=== PATIENT | male | born 1960 | race Caucasian/White ===

== ENCOUNTER 2022-02-05 18:43 | Emergency (ER) | payer MEDICAID, SELFPAY ==
[2022-02-05 18:51] VITALS: BP 99/78; PULSE 99; RESP 16; TEMP 37.1; O2SAT 98; BMI 26.6
[2022-02-05 19:09] LABS: MANUAL DIFF FLAG NO
[2022-02-05 19:17] LABS: Basophils Absolute Auto 0.1 X10*3/uL (0.0-0.2); Basophils Percent Auto 0.8 % (0-2); Eosinophils Absolute Auto 0.2 X10*3/uL (0.0-0.4); Eosinophils Percent Auto 1.7 % (0-4); Hematocrit 41.8 % (42.0-52.0); Hemoglobin 14.7 g/dl (14.0-18.0); Imm Gran Abs Auto 0.03 X10*3/uL (0.00-0.03); Imm Gran Pct Auto 0.3 % (0.0-0.4); Lymphocytes Absolute Auto 2.3 X10*3/uL (1.2-4.9); Lymphocytes Percent Auto 23.9 % (20-40); Mean Corpuscular HGB Conc 35.2 g/dl (31.0-36.0); Mean Corpuscular Hemoglobin 29.3 pg (27.0-33.0); Mean Corpuscular Volume 83.4 fL (80.0-98.0); Mean Platelet Volume 11.1 fL (9.4-12.4); Monocytes Absolute Auto 0.6 X10*3/uL (0.1-1.2); Neutrophils Absolute Auto 6.5 x10*3/uL (2.0-8.3); Neutrophils Percent Auto 67.3 % (45-73); Platelet Count 188 X10*3/uL (160-400); Red Blood Count 5.01 X10*6/uL (4.60-5.80); Red Cell Distribution Width 11.9 % (11.0-16.0); White Blood Count 9.6 X10*3/uL (4.8-10.8)
[2022-02-05 20:05] LABS: Anion Gap 20 (12-20); Blood Urea Nitrogen 17 mg/dL (9-16); Calcium 9.6 mg/dL (8.4-10.2); Carbon Dioxide 20 mmol/L (22-29); Chloride 94 mmol/L (96-108); Creatinine Clr Calc Pharmacy 41.3; Estimated Glomerular Filt Rate 36; Glucose Random 637 mg/dL (60-115); Potassium 4.9 mmol/L (3.3-5.1); Sodium 129 mmol/L (135-145)
[2022-02-05 20:52] LABS: Glucose, Whole Blood 525 mg/dL (60-115)
[2022-02-05 21:09] VITALS: BP 109/64; PULSE 83; RESP 14; O2SAT 98
--- NOTE | 2022-02-05 21:10 | ED_ITS ---
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 Patient was no history of diabetes been having polyuria, polydipsia, blurry vision, been feeling lightheadedness. Patient was seen at [facility] and been told that his blood sugars high they prescribed him oral anti-hyperglycemic meds medication but patient did not take it, blood sugar was checked by his diabetic friend machine read as high patient took his friend's medication for diabetes. Related Data Previous Rx's Medication Instructions Recorded metformin 500 mg tablet 500 mg PO BID #60 tab 02/06/22 Allergies Allergy/AdvReac Type Severity Reaction Status Date / Time No Known Allergies Allergy Unverified 05/21/20 15:59 [No Known Allergies*] Review of Systems Review of Systems: All other systems are reviewed and are negative Constitutional: Reports as per HPI and Reports no additional constitutional complaints Eyes: Reports as per HPI and Reports no additional eye complaints Reports system reviewed and no additional complaints, except as documented Cardiovascular: Reports as per HPI and Reports no additional cardiovascular complaints Respiratory: Reports as per HPI and Reports no additional respiratory complaints Gastrointestinal: Reports as per HPI and Reports no additional gastrointestinal complaints Genitourinary: Reports no additional female genitourinary complaints Musculoskeletal: Reports no additional musculoskeletal complaints Skin/Breast: Reports system reviewed and no additional complaints, except as docu Psychiatric: Reports no additional psychiatric complaints Endocrine: Reports no additional endocrine complaints Hematologic/Lymphatic: Reports no additional hematologic/lymphatic complaints Allergic/Immunologic: Reports no additional allergic/immunologic complaints Reports system reviewed and no additional complaints, except as documented and Reports Abnormal speech present [facility] Social History Social History Advance Directives: No Advance Directives Information Provided: No Physical Exam ED Vital Signs: Vital Signs - 24 hr 02/05/22 18:51 Temperature 98.7 F Pulse Rate 99 Respiratory Rate 16 Blood Pressure 99/78 Pulse Oximetry 98 BMI result Body Mass Index 26.6 Vital signs have been reviewed as appeared to be correct. Blood pressure normal. Heart rate normal. Respiration rate normal. Temperature normal. Oxygen saturation normal. Appearance: Alert. Oriented X3. No acute distress. Head: Normal external exam. Normocephalic. Atraumatic. No Mason signs noted. No raccoon eyes noted Eyes: PERRLA. EOMI. Conjunctiva and sclera normal. Eyelids normal. ENT: TM's Normal. Pharynx normal. Uvula midline. Moist mucous membranes. No trismus noted. No drooling noted. No muffled voice noted. Neck: Normal inspection. Neck supple. FROM. No adenopathy. Thyroid Normal. No meningeal signs. No neck mass noted. CVS: Normal heart rate and rhythm. Heart sound normal. No murmurs noted. Pulses normal throughout. Respiratory: No respiratory distress. Painless inspiration. Breath sounds normal. No wheezes/rales/rhonchi noted. Chest nontender. No accessory muscle usage noted or decreased air movement noted. Abdomen: Soft and nontender. Bowel sounds normal in all 4 quadrants. No distention noted. No organomegaly noted. No visible injury noted. Back: No CVA tenderness. Full range of motion noted. Skin: Skin warm and dry. Normal skin color. Normal skin turgor. No rashes/lesions/lacerations noted. Extremities: No lower extremity edema. Extremities exhibit normal range of motion. Extremities nontender. Neuro: Oriented X 3. Cranial nerve exam: II-XII are grossly intact No motor deficit. No sensory deficit. Reflexes normal. Course Course Course Narrative: Assessment and plan. 62-year-old male no diagnosis of diabetes found to have high blood sugar and hyponatremia patient received IV hydration and 10 units of regular insulin IV repeat electrolytes revealed improvement of sodium and glucose, normal anion gap with normal bicarb making DKA is unlikely. Patient is declining to stay in the hospital, will prescribe metformin and to follow up with [facility]. Medical Decision Making Lab Data Lab results reviewed: Yes I reviewed the patient's lab results. Result diagrams: 02/05/22 19:00 02/05/22 23:18 Labs: Lab Results 02/05/22 02/05/22 02/05/22 Range/Units 19:00 19:00 20:48 WBC 9.6 (4.8-10.8) X10*3/uL RBC 5.01 (4.60-5.80) X10*6/uL Hgb 14.7 (14.0-18.0) g/dl Hct 41.8 L (42.0-52.0) % MCV 83.4 (80.0-98.0) fL MCH 29.3 (27.0-33.0) pg MCHC 35.2 (31.0-36.0) g/dl RDW 11.9 (11.0-16.0) % Plt Count 188 (160-400) X10*3/uL MPV 11.1 (9.4-12.4) fL Immature Gran % (Auto) 0.3 (0.0-0.4) % Neut % (Auto) 67.3 (45-73) % Lymph % (Auto) 23.9 (20-40) % Maverick % (Auto) 6.0 (2-11) % Eos % (Auto) 1.7 (0-4) % Baso % (Auto) 0.8 (0-2) % Lymph # (Auto) 2.3 (1.2-4.9) X10*3/uL Maverick # (Auto) 0.6 (0.1-1.2) X10*3/uL Eos # (Auto) 0.2 (0.0-0.4) X10*3/uL Baso # (Auto) 0.1 (0.0-0.2) X10*3/uL Abs Immat Gran (auto) 0.03 (0.00-0.03) X10*3/uL Absolute Neuts (auto) 6.5 (2.0-8.3) x10*3/uL Absolute Nucleated RBC 0.000 (0.0-0.012) X10*3/uL Nucleated RBC % (auto) 0.0 (0.0-0.2) /100WBC Sodium 129 L (135-145) mmol/L Potassium 4.9 (3.3-5.1) mmol/L Chloride 94 L (96-108) mmol/L Carbon Dioxide 20 L (22-29) mmol/L Anion Gap 20 (12-20) BUN 17 H (9-16) mg/dL Creatinine 1.90 H (0.5-1.4) mg/dL Estim Creat Clear Calc 41.3 Estimated GFR 36 POC Glucose 525 H* (60-115) mg/dL Random Glucose 637 H* (60-115) mg/dL Calcium 9.6 (8.4-10.2) mg/dL 02/05/22 02/05/22 Range/Units 22:43 23:18 WBC (4.8-10.8) X10*3/uL RBC (4.60-5.80) X10*6/uL Hgb (14.0-18.0) g/dl Hct (42.0-52.0) % MCV (80.0-98.0) fL MCH (27.0-33.0) pg MCHC (31.0-36.0) g/dl RDW (11.0-16.0) % Plt Count (160-400) X10*3/uL MPV (9.4-12.4) fL Immature Gran % (Auto) (0.0-0.4) % Neut % (Auto) (45-73) % Lymph % (Auto) (20-40) % Maverick % (Auto) (2-11) % Eos % (Auto) (0-4) % Baso % (Auto) (0-2) % Lymph # (Auto) (1.2-4.9) X10*3/uL Maverick # (Auto) (0.1-1.2) X10*3/uL Eos # (Auto) (0.0-0.4) X10*3/uL Baso # (Auto) (0.0-0.2) X10*3/uL Abs Immat Gran (auto) (0.00-0.03) X10*3/uL Absolute Neuts (auto) (2.0-8.3) x10*3/uL Absolute Nucleated RBC (0.0-0.012) X10*3/uL Nucleated RBC % (auto) (0.0-0.2) /100WBC Sodium 138 (135-145) mmol/L Potassium 4.0 (3.3-5.1) mmol/L Chloride 101 (96-108) mmol/L Carbon Dioxide 26 (22-29) mmol/L Anion Gap 15 (12-20) BUN 17 H (9-16) mg/dL Creatinine 1.43 H (0.5-1.4) mg/dL Estim Creat Clear Calc 54.9 Estimated GFR 50 POC Glucose 113 (60-115) mg/dL Random Glucose 149 H D (60-115) mg/dL Calcium 10.0 (8.4-10.2) mg/dL Discharge Plan Discharge Clinical Impression: Acute hyperglycemia Patient Disposition: Home, Self-Care Instructions: Diabetic Hyperglycemia (ED) Additional Instructions: Follow-up with [facility] Prescriptions: New metformin 500 mg tablet 500 mg PO BID Qty: 60 0RF
[2022-02-05] MEDS: Insulin Regular, Human 100 UNIT/ML 3 ML VIAL 10 UNIT IVPUSH (21:19)
[2022-02-05] MEDS: 0.9 % Sodium Chloride 1,000 ML 999 ML IV (21:19)
--- NOTE | 2022-02-05 22:45 | PC.NURSE ---
POC 115
[2022-02-05 22:47] LABS: Glucose, Whole Blood 113 mg/dL (60-115)
[2022-02-05 23:43] LABS: Anion Gap 15 (12-20); Blood Urea Nitrogen 17 mg/dL (9-16); Carbon Dioxide 26 mmol/L (22-29); Chloride 101 mmol/L (96-108); Creatinine Clr Calc Pharmacy 54.9; Estimated Glomerular Filt Rate 50; Glucose Random 149 mg/dL (60-115); Sodium 138 mmol/L (135-145)
[2022-02-06] VITALS: BP 103/66; PULSE 71; RESP 14; O2SAT 98
[2022-02-07 06:26] LABS: Glucose, Whole Blood > 600 mg/dL (60-115)
== END 2022-02-06 00:54 | disposition home or self-care (01) ==
PROVIDERS: Emergency Provider Emergency Medicine
DX: E11.65 Type 2 diabetes mellitus with hyperglycemia (principal)
CPT/HCPCS: 36415; 80048; 82947; 85025; 96361; 96374; 99283; 99284

== ENCOUNTER → 2022-09-20 15:09 | Outpatient (BNVA) | payer MEDICAID, SELFPAY | PROVIDERS: Visit Provider Surgery Vascular Surgery | DX: I65.23 Occlusion and stenosis of bilateral carotid arteries (principal) | CPT/HCPCS: 99202 ==

== ENCOUNTER 2022-10-03 06:49 | Outpatient (REF) | payer MEDICAID, SELFPAY ==
--- NOTE | ~2022-10-03 | CT_ITS ---
EXAMINATION: CT ANGIOGRAM NECK CLINICAL INFORMATION: Occlusion and stenosis of bilateral carotid arteries. COMPARISON: 03/08/2022 duplex carotid ultrasound showed atherosclerotic plaque at both carotid bifurcations with 50-79% diameter reduction stenosis of both proximal ICAs. TECHNIQUE: Volumetric CT angiography of the head and neck was performed from the lung apices to the skull vertex utilizing the bolus intravenous administration of 70 mL of Omnipaque 350 contrast material. 2D multiplanar reconstructions and 3D MIP renderings were performed either on an independent workstation or at the CT console workstation. The degree of stenosis determined by NASCET criteria. This CT examination was performed using dose optimization techniques as appropriate, variously including the following: *Automated exposure control *Adjustment of mA and/or kV according to patient size (this includes techniques or standardized protocols for targeted exams where dose is matched to indication/reason for exam; i.e. extremities or head) *Use of iterative reconstruction technique DLP: 2677.00 mGy-cm FINDINGS: CT BRAIN: Precontrast and delayed postcontrast images of the brain were obtained. No acute intracranial process is identified. There are multiple small remote lacunar infarcts involving the head of the left caudate nucleus, tail of the left caudate nucleus and body of the right caudate nucleus. There is a probable tiny remote lacunar infarct versus a prominent perivascular space in the right putamen. No hemorrhage, extra-axial fluid collection, space-occupying process or mass effect. Ocampo-white matter differentiation is maintained. No regional oligemia. The ventricular system and subarachnoid spaces are within normal limits without hydrocephalus. The bony structures are intact and the visualized airspaces are unopacified. Incidental note is made of a 2.5 cm anterior nasal septal perforation or fenestration. Suggest correlation with direct visualization and clinical history for this. The visualized intraorbital soft tissue structures appear unremarkable. The visualized extracranial soft tissue structures are within normal limits. The soft tissue neck structures are grossly unremarkable. The visualized mediastinum is unremarkable. The visualized lung parenchyma demonstrates emphysematous changes bilaterally. Skeletal structures appear grossly intact. Cervical discogenic degenerative changes and spondylosis noted at C5-C6 and C6-C7 with Schmorl's nodes and degenerative endplate sclerosis. CTA NECK/CHEST: There is a normal three-vessel arch configuration, with partial visualization of the thoracic aortic arch. The brachiocephalic vessels are patent, with foci of a partially calcified atheromatous plaque at the origins, with mild luminal narrowing of the proximal left subclavian artery. There is suboptimal visualization of the left vertebral artery origin. Just distal to this, the left vertebral artery is noted to be patent and normal in caliber without significant focal stenosis or segmental occlusion. The right vertebral artery is slightly dominant and is patent, with smooth contours and normal in caliber with a normal appearance to the origin. The right common carotid artery demonstrates foci of partially calcified and noncalcified plaque in the mid to distal portion of the CCA with small foci of plaque ulceration suggested approximately 2.5 cm proximal to the bifurcation. Soft plaque and/or wall thickening of the upper portion of the CCA results in mild diffuse luminal narrowing just proximal to the bifurcation. At the level of the bifurcation, the external carotid artery is patent and normal in caliber. There is partially calcified atheromatous plaque within the right carotid bulb/proximal ICA with less than 50% diameter reduction stenosis by NASCET criteria. Distal to this, the right ICA is tortuous but is normal in caliber and smoothly contoured. The left common carotid artery shows long segment luminal irregularity with noncalcified atheromatous plaque suggested within the mid to distal portion of the CCA with associated mild luminal narrowing. At the level of bifurcation, there is partially calcified atheromatous plaque spanning the bifurcation/carotid bulb and proximal ICA with less than 50% diameter reduction stenosis based on NASCET criteria. The ECA is patent and normal in caliber. More distally, the left cervical ICA is also patent and normal in caliber. CTA HEAD: The intracranial ICAs are patent and normal in caliber. There is mild mural calcification at the cavernous left ICA. The M1 segments are patent and normal in caliber with a normal appearance to the M2 segments bilaterally with normal arborization of the MCA branches. The A1 and A2 segments are patent and normal in caliber with normal arborization of the A2 branches. The anterior communicating artery is diminutive but is patent. The intradural vertebral arteries are patent, smoothly contoured and normal in caliber with the right being dominant. The basilar artery is patent and smoothly contoured. The superior cerebellar arteries are patent. There is a origin of the left SWEATBAND SHAPER with a hypoplastic left P1 segment, which is an anatomic variant. The right P1 segment is visualized. There is moderate diffuse narrowing throughout the right P2 segment with suspicion for at least a moderate short segment focal stenosis of the junction of the right P2 and P3 segments. No intracranial aneurysms or high flow vascular malformations. CT/CT angio head neck IMPRESSION: 1. Atheromatous plaque at both carotid bulbs/proximal ICAs, with less than 50% diameter reduction stenosis bilaterally based on NASCET criteria. 2. Atheromatous changes at the origins of the great vessels of the neck with a mild degree of stenosis of the proximal left subclavian artery. The vertebral arteries are patent and there is no evidence for vertebral artery stenosis or occlusion. 3. Atheromatous changes of both CCAs with a small foci of plaque ulceration in the right CCA and mild luminal narrowing of the mid to distal CCAs bilaterally. 4. Luminal irregularity of the right SWEATBAND SHAPER, with suspicion for at least a moderate or moderate to severe short segment focal stenosis of the junction of the right P2 and P3 segments. 5. Multiple remote lacunar infarcts in the basal ganglia bilaterally. 6. Emphysematous changes in the lungs. 7. A 2.5 cm anterior nasal septal perforation or fenestration. Correlate with direct visualization and clinical history for this. 8. Cervical degenerative changes as described above.
[2022-10-03 08:11] LABS: Blood Urea Nitrogen 10 mg/dL (9-16)
[2022-10-03 08:39] LABS: Estimated Glomerular Filt Rate > 60
[2022-10-03] MEDS: iohexoL 350 MG/ML 100 ML INFUS..BTL 70 ML IV (09:55)
== END 2022-10-03 06:50 | disposition home or self-care (01) ==
LOC: HO.CT 06:49
PROVIDERS: Visit Provider Surgery Vascular Surgery
DX: I65.23 Occlusion and stenosis of bilateral carotid arteries (principal)
CPT/HCPCS: 36415; 70496; 70498; 82565; 84520; Q9967

== ENCOUNTER → 2022-10-11 12:53 | Outpatient (BNVA) | payer MEDICAID, SELFPAY | PROVIDERS: Visit Provider Surgery Vascular Surgery | DX: I65.23 Occlusion and stenosis of bilateral carotid arteries (principal) | CPT/HCPCS: 99212 ==

== ENCOUNTER 2023-01-27 19:20 | Emergency (ER) | payer OTHER, MEDICAID, SELFPAY ==
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
[2023-01-27 19:25] VITALS: BP 146/92; PULSE 97; RESP 19; TEMP 36.4; O2SAT 99; BMI 24.7
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
--- NOTE | 2023-01-27 21:38 | PC.NURSE ---
pt eloped from room.
== END 2023-01-27 21:46 | disposition left against medical advice (07) ==
PROVIDERS: Emergency Provider Emergency Medicine
DX: Z04.1 Encounter for examination and observation following transport accident (principal)
CPT/HCPCS: 71046; 99281; 99283

== ENCOUNTER → 2023-07-24 07:58 | Day surgery (SDC) | payer MEDICAID, SELFPAY ==
[2023-07-20 10:10] VITALS: BMI 24.4
--- NOTE | 2023-07-21 13:25 | HO.ANESPROP2 ---
Documented by User: Randa Art NP 07/21/23 13:27 HPI - Anesthesia Eval Consult details Narrative: 63yo M for Upper Endoscopy and Colonoscopy [facility] Active Problems Active Problems: All Active Problems (Updated 07/20/23 @ 10:11 by Sharmila Finley RN) Bilateral carotid artery stenosis (Acute) Past Medical History Medical History (Updated 07/20/23 @ 10:11 by Sharmila Finley RN) Bilateral carotid artery stenosis History of ETOH abuse GERD (gastroesophageal reflux disease) Diabetes Hyperlipidemia Hypertension Family History Family History Father Stroke (cerebrum) Mother Diabetes Surgical History Surgical History (Updated 07/19/23 @ 20:23 by Kaylin Frederick RN) Hx of cataract surgery Social History Social History Patient Tobacco Use Status: Current everyday Tobacco user Tobacco use type: Cigarette Cigarettes Per Day: 9 Are you DNR?: No Advance Directives: No Advance Directives Information Provided: Yes Nutrition Risks: No Nutritional Risk Meds Allergies Allergy/AdvReac Type Severity Reaction Status Date / Time No Known Allergies Allergy Verified 01/27/23 19:25 [No Known Allergies*] Home Medications Medication Instructions Recorded Confirmed Last Taken Type atorvastatin 40 mg tablet 40 mg PO DAILY cholesterol 09/20/22 07/19/23 Unknown History cholecalciferol (vitamin D3) 25 25 mcg PO QAM 09/20/22 07/19/23 Unknown History mcg (1,000 unit) capsule (Vitamin D3) insulin degludec 100 unit/mL (3 32 unit subcut DAILY 09/20/22 07/19/23 Unknown History mL) subcutaneous pen (Tresiba FlexTouch U-100 insulin) aspirin 81 mg tablet,delayed 81 mg PO DAILY 07/19/23 07/19/23 Unknown History release lisinopril 10 mg tablet 10 mg PO QAM 07/19/23 07/19/23 Unknown History metformin 500 mg tablet 1,000 mg PO BID 07/19/23 07/19/23 Unknown History omeprazole 20 mg capsule,delayed 20 mg PO QAM 07/19/23 07/19/23 Unknown History release Exam Height,Weight and Vital Signs: Height 5 ft 9 in Weight 74.843 kg Narrative Narrative: CT angio head neck 09/2022 IMPRESSION: 1. Atheromatous plaque at both carotid bulbs/proximal ICAs, with less than 50% diameter reduction stenosis bilaterally based on NASCET criteria. 2. Atheromatous changes at the origins of the great vessels of the neck with a mild degree of stenosis of the proximal left subclavian artery. The vertebral arteries are patent and there is no evidence for vertebral artery stenosis or occlusion. 3. Atheromatous changes of both CCAs with a small foci of plaque ulceration in the right CCA and mild luminal narrowing of the mid to distal CCAs bilaterally. 4. Luminal irregularity of the right [employer], with suspicion for at least a moderate or moderate to severe short segment focal stenosis of the junction of the right P2 and P3 segments. 5. Multiple remote lacunar infarcts in the basal ganglia bilaterally. 6. Emphysematous changes in the lungs. 7. A 2.5 cm anterior nasal septal perforation or fenestration. Correlate with direct visualization and clinical history for this. 8. Cervical degenerative changes as described above. Assessment and Plan Assessment Anesthesia Assessment: Chart Reviewed Documented by User: Lexy Al MD 07/24/23 12:00 HPI - Anesthesia Eval Consult details Narrative: 63yo M for Upper Endoscopy and Colonoscopy [facility] here for EGD, Colonoscopy. H/o DM. BS 75. As being interviewed by nurse mentions that he had cocaine before he came in. On further questioning, admits to using cocaine daily. Urine tox screen confirms presence of cocaine in system. 12 lead: NSR.80 QT Int : 374 ms QTc Int : 431 ms Normal sinus rhythm. 80 Left axis deviation Moderate voltage criteria for LVH, may be normal variant ( R in aVL , [place] product ) Septal infarct , age undetermined Inferior infarct , age undetermined Abnormal ECG Troponin I 44.4 Discussed with patient possibility of cardiac arrhythmias with anesthesia and abnormal findings on EKG, labwork. Decision made to reschedule procedure. Paitent in agreement. Will follow up with PCP [facility] Past Medical History Medical History (Updated 07/20/23 @ 10:11 by Sharmila Finley, CARTER) Bilateral carotid artery stenosis History of ETOH abuse GERD (gastroesophageal reflux disease) Diabetes Hyperlipidemia Hypertension Family History Family History Father Stroke (cerebrum) Mother Diabetes Surgical History Surgical History (Updated 07/19/23 @ 20:23 by Kaylin Frederick, CARTER) Hx of cataract surgery Social History Social History Patient Tobacco Use Status: Current everyday Tobacco user Tobacco use type: Cigarette Cigarettes Per Day: 9 Are you DNR?: No Advance Directives: No Advance Directives Information Provided: Yes Nutrition Risks: No Nutritional Risk Meds Allergies Allergy/AdvReac Type Severity Reaction Status Date / Time No Known Allergies Allergy Verified 01/27/23 19:25 [No Known Allergies*] Home Medications Medication Instructions Recorded Confirmed Last Taken Type atorvastatin 40 mg tablet 40 mg PO DAILY cholesterol 09/20/22 07/19/23 Unknown History cholecalciferol (vitamin D3) 25 25 mcg PO QAM 09/20/22 07/19/23 Unknown History mcg (1,000 unit) capsule (Vitamin D3) insulin degludec 100 unit/mL (3 32 unit subcut DAILY 09/20/22 07/19/23 Unknown History mL) subcutaneous pen (Tresiba FlexTouch U-100 insulin) aspirin 81 mg tablet,delayed 81 mg PO DAILY 07/19/23 07/19/23 Unknown History release lisinopril 10 mg tablet 10 mg PO QAM 07/19/23 07/19/23 Unknown History metformin 500 mg tablet 1,000 mg PO BID 07/19/23 07/19/23 Unknown History omeprazole 20 mg capsule,delayed 20 mg PO QAM 07/19/23 07/19/23 Unknown History release
[2023-07-24 08:36] LABS: Glucose, Whole Blood 75 mg/dL (60-115)
[2023-07-24 08:38] VITALS: BP 147/93; PULSE 90; RESP 18; TEMP 36.1; O2SAT 98
[2023-07-24] MEDS: Lactated Ringers 1,000 ML 100 ML IVCONT (09:14)
--- NOTE | 2023-07-24 09:19 | PC.NURSE ---
dr dyson and anesthesia aware of cocaine use
--- NOTE | 2023-07-24 10:12 | ECG_ITS ---
Test Reason : PREOP Blood Pressure : / mmHG Vent. Rate : 080 BPM Atrial Rate : 080 BPM P-R Int : 152 ms QRS Dur : 078 ms QT Int : 374 ms P-R-T Axes : 053 -38 018 degrees QTc Int : 431 ms Normal sinus rhythm ST elevation in Septal leads Left anterior fascicular block Moderate voltage criteria for LVH, may be normal variant ( R in aVL , [place] product ) Abnormal ECG No previous ECGs available Referred By: Lexy Al Electronically Signed By:IRLANDA CAMERON MD
[2023-07-24 10:42] LABS: Prothrombin Time 12.2 SEC (11.1-13.3)
[2023-07-24 10:51] LABS: Amphetamine Screen Urine Not Detected (Not Detect); Barbiturates, Urine Not Detected (Not Detect); Benzodiazepines Screen Urine Not Detected (Not Detect); Cannabinoid Screen Urine Not Detected (Not Detect); Cocaine Screen Urine POSITIVE (Not Detect); Fentanyl, urine Not Detected (Not Detect); Opiate Screen Urine Not Detected (Not Detect); Phencyclidine Screen Urine Not Detected (Not Detect)
[2023-07-24 10:59] LABS: Troponin-I High Sensitivity 44.4 ng/L (<3.5-35.0)
--- NOTE | 2023-07-24 11:30 | PC.NURSE ---
DR BONNER AT BEDSIDE PATEINT CANCELLED POSTIVE DRUG SCREEN FOLLOW UP WITH PCP FOR EKG RESULLTS PT VERBALIZED UNDERSTANDING OF NEW CAREPLAN DENIES C/P DENIES DIZZINESS PWD
== END ==
PROVIDERS: Anesthesiology; Visit Provider Internal Medicine
DX: Z12.11 Encounter for screening for malignant neoplasm of colon (principal); Z53.09 Procedure and treatment not carried out because of other contraindication; R82.5 Elevated urine levels of drugs, medicaments and biological substances
CPT/HCPCS: 36415; 80307; 82947; 84484; 85610; 93005

== ENCOUNTER 2023-10-05 13:01 | Outpatient (REF) | payer MEDICAID, SELFPAY ==
--- NOTE | ~2023-10-05 | US_ITS ---
EXAMINATION: US EXTRACRANIAL CAROTID DUPLEX, BILATERAL CLINICAL INFORMATION: Carotid stenosis. COMPARISON: Carotid ultrasound 03/08/2022 TECHNIQUE: Real-time ultrasound and Doppler techniques (integrating B-mode 2-D vascular images, Doppler spectral analysis and color-flow Doppler imaging) were utilized to interrogate the extracranial carotid arteries, the vertebral arteries and proximal subclavian arteries bilaterally. The degree of stenosis is determined by criteria similar to NASCET. FINDINGS: Right Side: 1. There is moderate atherosclerotic plaque seen in the bifurcation/proximal ICA region. 2. The common carotid artery PSV proximally is 74 cm/s and distally 84 cm/s. 3. The proximal internal carotid artery velocities are 62 cm/s systolic and 31 cm/s diastolic. 4. The proximal external carotid artery PSV is 102 cm/s. 5. The vertebral artery shows antegrade flow. 6. The subclavian artery waveforms are normal. Left Side: 1. There is moderate atherosclerotic plaque seen in the bifurcation/proximal ICA region. 2. The common carotid artery PSV proximally is 65 cm/s and distally 96 cm/s. 3. The proximal internal carotid artery velocities are 70 cm/s systolic and 33 cm/s diastolic. 4. The proximal external carotid artery PSV is 30 cm/s. 5. The vertebral artery shows antegrade flow. 6. The subclavian artery waveforms are normal. US/US carotid duplex BI IMPRESSION: 1. RIGHT: Minimal, non-hemodynamically significant stenosis of the proximal right internal carotid artery corresponding to a 0-49% stenosis by velocity criteria. 2. LEFT: Minimal, non-hemodynamically significant stenosis of the proximal left internal carotid artery corresponding to a 0-49% stenosis by velocity criteria. 3. By velocity criteria, disease category has decreased from moderate to mild compared to 03/08/2022. 4. There is moderate soft plaque in the left common carotid artery with 2:1 velocity shift in the mid segment of the left common carotid artery consistent with approximate 50% diameter reduction.
== END 2023-10-05 13:02 | disposition home or self-care (01) ==
LOC: HO.US 13:01
PROVIDERS: Visit Provider Surgery Vascular Surgery
DX: I65.23 Occlusion and stenosis of bilateral carotid arteries (principal)
CPT/HCPCS: 93880

== ENCOUNTER 2023-11-27 13:32 | Outpatient (REF) | payer MEDICAID, SELFPAY ==
--- NOTE | ~2023-11-27 | MR_ITS ---
EXAMINATION: MRA NECK WITHOUT AND WITH CONTRAST CLINICAL INFORMATION: Peripheral vascular disease. Headache. Blurry vision. Vertebral artery stenosis. COMPARISON: Carotid ultrasound from 10/05/2023. CTA head and neck from 10/03/2022. TECHNIQUE: Multiplanar multisequence MR imaging of the brain was obtained without and with contrast following the administration of 10 mL Gadavist. Routine MRA of the head and neck was also performed. Routine postcontrast MRA of the neck, axial 2D qznr-[id number] of the neck, and 3D depx-eq-opiuuv of the head were performed. 3D postprocessing including acquisition of multiplanar MIP reformats are obtained at the technologist workstation and utilized for image interpretation. Stenoses are assessed in accordance with NASCET criteria unless otherwise indicated. FINDINGS: Aortic arch is of normal caliber. There is a atheromatous ulceration along the anterior wall of the aortic arch, measuring up to 0.4 cm in depth. Classic 3 vessel branching pattern of the aortic arch. Normal flow-related signal and opacification of the common carotid arteries bilaterally. Mild atherosclerotic irregularity of the carotid bulbs without stenosis. Normal flow-related signal and opacification of the cervical segments of the internal carotid arteries bilaterally. Mild atherosclerotic narrowing of the V1 segment of the left vertebral artery. Otherwise, normal flow-related signal and opacification of the V1-V3 segments of the vertebral arteries bilaterally. Limited evaluation of the neck and upper thorax is without significant abnormality. MR/MR angio neck wo/w con IMPRESSION: 1. MRA of the head and neck without proximal occlusion or flow-limiting stenosis. 2. Small atheromatous ulceration along the anterior wall of the aortic arch.
[2023-11-27] MEDS: gadobutroL 10 ML VIAL IVPUSH (15:12)
== END 2023-11-27 13:33 | disposition home or self-care (01) ==
LOC: HO.MRI 13:32
PROVIDERS: PCP Student in an Organized Health Care Education/Training Program; Visit Provider Student in an Organized Health Care Education/Training Program
DX: R42 Dizziness and giddiness (principal); H53.8 Other visual disturbances; R51.9 Headache, unspecified
CPT/HCPCS: 70549; A9585

== ENCOUNTER 2024-01-19 09:20 | Outpatient (AMB) | payer MEDICAID, SELFPAY ==
--- NOTE | 2024-01-19 08:17 | MHC.OFFVIS ---
Intake Visit Reasons: Current Smoker Allergies No Known Allergies [No Known Allergies*] Allergy (Verified 01/27/23 19:25) HPI HPI Current Smoker : Details: Initial visit for this 64yo smoker with a 23PYH. Patient has been smoking since age 16 for 47 years at 1/2ppd. . Denies marijuana use. Denies second hand smoke exposure. Denies exposure to chemicals or substances like asbestos. . Denies known family history of lung cancer. Denies personal history of cancers. Denies chest CT in last year. . Denies recent travel outside the [place]. Denies recent respiratory illness or recent hospitalization for respiratory issues. Denies testing positive for COVID. Admits receiving COVID Vaccine. . Denies fever, chills, new/worsening cough, hemoptysis, hoarseness or dysphagia. Denies significant chest pain, significant dyspnea or unintentional weight loss. Patient Lung Cancer Screening Questionnaire reviewed with patient by provider. . Shared Decision Making Completed. Patient meets criteria. Discussed in detail with patient, the risk vs benefit of LDCT screening. Patient consents to proceed with scan. Discussed smoking cessation. [facility] Medical History (Updated 12/19/23 @ 11:26 by Jody Rowe PA-C) History of ETOH abuse Bilateral carotid artery stenosis Hypertension Hyperlipidemia Diabetes Nicotine dependence, cigarettes, uncomplicated GERD (gastroesophageal reflux disease) Surgical History (Updated 01/09/24 @ 10:04 by Jody Rowe PA-C) History of bilateral cataract extraction Family History Father Stroke (cerebrum) Mother Diabetes Social History Patient Tobacco Use Status: Current everyday Tobacco user Tobacco use type: Cigarette Cigarettes Per Day: 9 Assessment & Plan Assessment & Plan (1) Nicotine dependence, cigarettes, uncomplicated: Comment: (current smoker - onset 16yo, 1/2ppd x 47yrs, 23pyh) Code(s): F17.210 - Nicotine dependence, cigarettes, uncomplicated Category: Medical Plan: - SDM visit completed today in office. - Patient meets criteria for LDCT for lung cancer screening purposes and is asymptomatic. - Smoking cessation counseling offered. Patients can always call [phone]. - Will arrange for a LDCT scan of the chest for screening purposes at [facility]. - Risks, benefits, and alternatives were discussed in detail and the patient agrees to proceed. - Risks discussed include but are not limited to: radiation exposure, anxiety during testing and while awaiting results, false negatives, false positives and possibility of additional intervention such as further imaging or surgical procedures for benign disease. - Benefits are obviously detection of lung cancer at an early stage which can lead to improved outcomes. - Discussed the importance of screening program compliance with adherence to yearly LDCT scan as scheduled - or sooner interval scans for personalized screening regimen. - Discussed follow up plan. Our office will send a letter discussing results and if needed set up phone call and office visit based on CT findings. - Patient educated on results categorization and the management decisions for suspicious findings potentially found on the screening LDCT scan. Any patient with a Lung RADS score of 3 or 4 will be reviewed by a multidisciplinary team at [facility] to form a plan of action in regards to scan findings. - If further work up is warranted for a suspicious lung finding this will be followed by the Lung Cancer Screening program in conjunction with the Thoracic Surgery Department at [facility]. - A copy of the office note and LDCT will be sent to the patient's PCP - as well as documentation on any associated further plans of care. - Incidental findings on LDCT are the PCP's responsibility. These findings are indicated with an S finding on the LDCT Assessment. A note discussing the findings will be sent to the PCP who is then responsible for further management. - All questions answered.? Coding Level of Care Code Lung Cancer Screening [id number] Diagnoses Nicotine dependence, cigarettes, uncomplicated F17.210
== END 2024-01-19 10:14 | disposition home or self-care (01) ==
PROVIDERS: PCP Student in an Organized Health Care Education/Training Program; Referring Provider Internal Medicine Geriatric Medicine; Visit Provider Physician Assistant Medical
DX: F17.210 Nicotine dependence, cigarettes, uncomplicated (principal)
CPT/HCPCS: G0296

== ENCOUNTER 2024-01-19 09:50 | Outpatient (REF) | payer MEDICAID, SELFPAY ==
--- NOTE | ~2024-01-19 | CT_ITS ---
EXAMINATION: CT LOW-DOSE SCREENING CHEST WITHOUT CONTRAST CLINICAL INFORMATION: Nicotine dependence, cigarettes, uncomplicated. The patient is a current smoker with a 47 pack-year history of smoking. COMPARISON: X-ray chest 01/27/2023. TECHNIQUE: Multidetector volumetric CT imaging of the chest is performed on a Siemens SOMATOM Definition scanner without contrast using low dose technique. Additional 2D coronal and sagittal reformatted images and axial 3D maximum intensity projection (MIP) images are generated on the CT workstation. This CT examination was performed using dose optimization techniques as appropriate, variously including the following: *Automated exposure control *Adjustment of mA and/or kV according to patient size (this includes techniques or standardized protocols for targeted exams where dose is matched to indication/reason for exam; i.e. extremities or head) *Use of iterative reconstruction technique TOTAL EXAM DLP: 42 mGy-cm. CTDIvol: 1.21 mGy. FINDINGS: PULMONARY NODULES: The following 2 lung nodules are present: 5 mm subpleural right middle lobe nodule anterolaterally on the undersurface of the minor fissure likely a lymph node (5:199) 8 x 8 x 5 mm nodule right lower lobe (5:219 and baldwin images). LUNGS: Lungs bilaterally symmetrically expanded. Mild emphysematous changes and mild bronchial thickening. No effusion or pneumothorax. Central airways patent. MEDIASTINUM: No mediastinal, hilar or axillary adenopathy or free fluid collection. CORONARY ARTERY CALCIFICATION: Extensive. THYROID GLAND: Unremarkable to the extent seen. CARDIOVASCULAR STRUCTURES: The ascending aorta is dilated at 4.4 cm which is increased in size for a patient of 64 years of age when maximum dimension should be 4.1 cm. The heart size normal. No pericardial effusion. CHEST WALL/AXILLA: Unremarkable. UPPER ABDOMEN: Included portions of the solid organs in the upper abdomen unremarkable on noncontrast imaging. OSSEOUS STRUCTURES: No suspicious focal findings. CT/CT lung screening IMPRESSION: 1. An 8 mm right lower lobe nodule. 2. Mild emphysema. 3. Dilated ascending aorta at 4.4 cm. ASSESSMENT: 1. Lung-RADS Category 3: Probably benign findings. N/A 2. Lung-RADS Category S: Negative. There are no clinically significant or potentially clinically significant findings not related to the lungs requiring urgent additional evaluation. RECOMMENDATION: A 6-month follow up low-dose lung CT scan is recommended. An order for CT LUNG CANCER SCREENING SHORT INTERVAL FOLLOWUP ([id number]) can be placed.
== END 2024-01-19 09:51 | disposition home or self-care (01) ==
LOC: HO.CT 09:50
PROVIDERS: Visit Provider Physician Assistant Medical
DX: Z12.2 Encounter for screening for malignant neoplasm of respiratory organs (principal); F17.210 Nicotine dependence, cigarettes, uncomplicated
CPT/HCPCS: 71271; G0296

== ENCOUNTER 2024-06-04 11:10 | Outpatient (REF) | payer MEDICAID, SELFPAY ==
--- NOTE | ~2024-06-04 | CT_ITS ---
EXAMINATION: CT LOW-DOSE SCREENING CHEST WITHOUT CONTRAST CLINICAL INFORMATION: Solitary pulmonary nodule. Three-month repeat screening. 8 mm RLL nodule. The patient is a current smoker with a 47 pack-year history of smoking. COMPARISON: CT chest 01/19/2024 x-ray chest 01/27/2023. TECHNIQUE: Multidetector volumetric CT imaging of the chest is performed on a Siemens SOMATOM Definition scanner without contrast using low dose technique. Additional 2D coronal and sagittal reformatted images and axial 3D maximum intensity projection (MIP) images are generated on the CT workstation. This CT examination was performed using dose optimization techniques as appropriate, variously including the following: *Automated exposure control *Adjustment of mA and/or kV according to patient size (this includes techniques or standardized protocols for targeted exams where dose is matched to indication/reason for exam; i.e. extremities or head) *Use of iterative reconstruction technique TOTAL EXAM DLP: 49 mGy-cm. CTDIvol: 1.40 mGy. FINDINGS: PULMONARY NODULES: Measurements of all pulmonary nodules were performed again. Regarding the pulmonary nodules, new and comparable measurements were made on the prior study. Previously seen right lower lobe nodule measuring 8.2 x 7.2 x 4.6 mm has increased in size to 9.0 x 9.0 x 6.9 mm (5:235 compare prior 5:218). Mean diameter has increased from 6.7 mm to 8.3 mm, an increase in size by 1.6 mm, which is considered significant growth. Right upper lobe pleural-based nodule has increased in size from 4.4 x 3.6 mm to 6.3 x 5.1 mm (5:220 compare prior 5:231). No new nodules are seen. LUNGS: Lungs bilaterally symmetrically expanded. There is mild emphysema and bronchial thickening without bronchiectasis. Subpleural reticular changes in the superior right upper lobe are unchanged. No effusion or pneumothorax. Central airways patent. MEDIASTINUM: No mediastinal, hilar or axillary adenopathy or free fluid collection. CORONARY ARTERY CALCIFICATION: Extensive. THYROID GLAND: Unremarkable to the extent seen. CARDIOVASCULAR STRUCTURES: Heart size normal. Ascending aorta is stable at 4.4 cm in maximal transverse dimension. No pericardial effusion. CHEST WALL/AXILLA: Unremarkable. UPPER ABDOMEN: Included portions of the solid organs in the upper abdomen unremarkable on noncontrast imaging. OSSEOUS STRUCTURES: No suspicious focal findings. CT/CT lung screen follow up IMPRESSION: Significant growth in the right lower lobe pulmonary nodule since 01/19/2024, increasing in mean diameter from 6.7 mm to 8.3 mm. ASSESSMENT: 1. Lung-RADS Category 4B: Suspicious findings. N/A 2. Lung-RADS Category S: Negative. There are no clinically significant or potentially clinically significant findings not related to the lungs requiring urgent additional evaluation. RECOMMENDATION: Tissue sampling is recommended depending on the probability of malignancy and comorbidities. PET CT would be another alternative. Electronically signed by: Axel Bragg MD 07/20/2024 07:33 PM EST
== END 2024-06-04 11:11 | disposition home or self-care (01) ==
LOC: HO.CT 11:10
PROVIDERS: PCP Internal Medicine Geriatric Medicine; Visit Provider Physician Assistant Medical
DX: R91.1 Solitary pulmonary nodule (principal)
CPT/HCPCS: 71250

== ENCOUNTER 2024-10-31 09:05 | Outpatient (REF) | payer MEDICAID, SELFPAY ==
--- NOTE | ~2024-10-31 | CT_ITS ---
CLINICAL HISTORY: R91.1 - Solitary pulmonary nodule CT lung cancer screening (LDCT) Comparison: CT/[place]/SR - CT LUNG SCREEN FOLLOW UP - 06/04/24 11:[address]/[place] - CT LUNG SCREENING - 01/19/24 10:15 EDT Technique: Axial CT images of the chest using low-dose technique. Referring provider counseled the patient on shared decision-making for LDCT screening. Additional counseling was provided on smoking cessation. Effective radiation dose total: DLP 49.5 mGycm, CTDIvol 1.3 mGy. Findings: Lung: Mild emphysema. Right lower lobe pulmonary nodule series 6, image 71 measuring 8 x 8.2 mm, 8.1 x 9.[address] 06/04/2024 and 8.1 x 8[address] 01/19/2024. Stable in size of the 6 mm subpleural nodule of the right upper lobe on image 62. Stable in size of additional pulmonary nodules. Coronary artery calcifications: Severe Limited upper abdomen: Unremarkable Other: None Impression: LungRADS 3 - Probably benign: Recommend low dose screening Chest CT in 6 months. ##L3# Category 1: Normal; continue annual screening Category 2: Benign appearance or behavior, continue annual screening Category 3: Probably benign, [address] recommended Category 4A: Suspicious, [address] recommended; may consider PET/CT Category 4B: Suspicious, Additional diagnostics and/or tissue sampling recommended Category 4X: Suspicious, Additional diagnostics and/or tissue sampling recommended Category 0: Recalls (incomplete screen due to Incomplete coverage, Noise, Respiratory motion, Expiration, Obscured by acute abnormality) This document has been electronically signed by: Gurinder Degroot MD on 10/31/2024 14:47:20
--- OUTSIDE RECORDS SUMMARY | 2024-10-31 09:48 | XMS_ITS | Clinical Summary ---
Author Organization [employer] Address [address] [facility] 7[address] [place] [address] Care Team Providers Care Egg Caser Name Role Phone Shanda Joseph Primary Care Provider [phone] Allergies No known active allergies Medications Blood Glucose Monitoring Suppl (MetaCartaStyle [place] Lite) w/Device kit TEST BLOOD SUGAR TWICE DAILY 02/08/20 22 Active naloxone (Narcan) 4 mg/0.1 mL nasal spray FOR SUSPECTED OPIOID OVERDOSE. SPRAY 0.1mL IN ONE NOSTRIL. REPEAT IN ALTERNATE NOSTRIL 2-3 MINUTES IF NEEDED. SEEK MEDICAL ATTENTION IMMEDIATELY EVEN IF PATIENT RESPONDS. 05/30/20 22 Active nicotine (Nicoderm, Step 2) 14 MG/24HR patch APPLY 1 PATCH TOPICALLY TO THE SKIN DAILY IN THE MORNING THEN REMOVE AT BEDTIME DIRECTED. DO NOT SMOKE WHILE USING PATCH 06/27/20 22 Active Nicotrol 10 MG inhaler INHALE 1 UNITS BY MOUTH 6 TIMES PER DAY NEEDED 05/26/20 22 Active nicotine polacrilex (Nicorette) 4 MG gum CHEW 1 PIECE OF GUM EVERY 1 TO 2 HOURS NEEDED AND DIRECTED 06/27/20 22 Active psyllium (Metamucil Smooth Texture) 58.6 % powder use 1 tsp daily, increase slowly to 1 tsp 3x/daily in 8oz of water 05/26/20 22 Active varenicline (Chantix) 1 MG tablet TAKE 1 TABLET BY MOUTH TWICE DAILY AFTER MEALS WITH GLASS OF WATER 05/26/20 22 Active omeprazole (PriLOSEC) [address] capsuleIndications: Gastroesophageal reflux disease, unspecified whether esophagitis present Take 1 capsule (20 mg) by mouth before breakfast. Do not crush or chew. 30 capsule 1 12/03/19 23 Active FREESTYLE LITE test stripIndications:Ty pe 2 diabetes mellitus with other circulatory complication, with long-term current use of insulin ([facility]) TEST BLOOD SUGAR TWICE DAILY 100 each 03/21/20 23 Active TRUEplus Lancets 33G miscIndications:Typ e 2 diabetes mellitus with other circulatory complication, with long-term current use of insulin ([facility]) Test blood sugar twice daily and more as needed 100 each 03/21/20 23 Active Tresiba FlexTouch 100 UNIT/ML injectionIndication s:Type 2 diabetes mellitus with other circulatory complication, with long-term current use of insulin ([facility]),Mild nonproliferative diabetic retinopathy associated with type 2 diabetes mellitus, macular edema presence unspecified, unspecified laterality ([facility]) Inject 36 units subcutaneously daily 15 mL 5 06/23/20 23 Active Sure Comfort Pen Jachin 31G X 5 MM miscIndications:Typ e 2 diabetes mellitus with hyperglycemia, with long-term current use of insulin ([facility]) USE ONCE DAILY WITH INSULIN 100 each 3 07/04/20 23 Active atorvastatin (Lipitor) 40 MG tablet TAKE 1 TABLET BY MOUTH EVERY DAY (for cholesterol) 90 tablet 3 09/25/19 24 Active Vitamin D High Potency 25 MCG (1000 UT) capsuleIndications: Vitamin D deficiency TAKE 1 CAPSULE BY MOUTH DAILY IN THE MORNING 90 capsule 11/28/19 24 Active aspirin 81 MG EC tabletIndications:C ardiovascular event risk Take 1 tablet (81 mg) by mouth in the morning. 90 tablet 11/24/19 24 Active famotidine (Pepcid) 20 MG tablet Take 1 tablet (20 mg) by mouth at bedtime. 30 tablet 11/24/19 24 Active dulaglutide (Trulicity) 0.75 MG/0.5ML solution pen-injector Inject 0.75 mg under the skin 1 (one) time per week. 4 each 1 11/24/19 24 Active Continuous Blood Gluc Metal Checker (FreeStyle Kiana 2 [place]) deviceIndications:T ype 2 diabetes mellitus with other circulatory complication, with long-term current use of insulin ([facility]) Scan sensor every 8 hours 1 each 11/29/19 24 Active Continuous Blood Gluc Sensor (FreeStyle Kiana 2 Sensor) miscIndications:Typ e 2 diabetes mellitus with other circulatory complication, with long-term current use of insulin ([facility]) Apply 1 sensor every 14 days 2 each 11/29/19 Active glucose blood (FreeStyle Precision Johnny Test) test stripIndications:Ty pe 2 diabetes mellitus with other circulatory complication, with long-term current use of insulin (CMS/HCC) Use to test blood sugar 3 times daily 100 each 11/29/19 24 2024 Active metFORMIN (Glucophage) 500 MG tablet TAKE 2 TABLETS BY MOUTH TWICE DAILY IN THE MORNING AND EVENING WITH MEALS 360 tablet 2 01/12/20 24 Active lisinopril 20 MG tabletIndications:P rimary hypertension TAKE 1 TABLET BY MOUTH EVERY DAY IN THE MORNING 90 tablet 2 01/12/20 24 Active Active Problems Problem Noted Date Diagnosed Date Atherosclerotic ulcer of aorta 12/05/2023 Vertigo 11/26/2023 Assessment & Plan (11/26/2023 4:44 PM EDT): Pt reports mod DAVIDSON, mild neck discomfort , mild blurry vision and vertigo From exam has benign evaluation including complete neurologic exam There is mild neck tenderness so in part symptoms are muscular but this is not explaining the eye complaints and vertigo to be concern with vascular or neurologic disorder. Given pt has relevant risk factors as tobacco smoking and DM, PVD will further evaluate -today CBG 114 -warm compresses for neck and tylenol prn -seen by ophthalmology 11/17/2023 -MRA neck STAT to r/o vertebral dx -resume ASA-pt denies taking it -chem today -alarm signs and symptoms discussed w pt -Apt w PCP scheduled already for 12/05/2023 GERD (gastroesophageal reflux disease) Assessment & Plan (11/26/2023 4:45 PM EDT): Reports GERD -famotidine HS, unsure if taking PPIs in am -advised pt to bring all meds to his next apt w PCP to clarify meds -diet changes advised and HOB Pseudophakia of both eyes 04/12/2023 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 09/29/2022 Hollenhorst plaque, right eye 09/29/2022 Atherosclerosis of both carotid arteries 022 Mild nonproliferative diabet ic retinopathy associated with type 2 diabetes mellitus 06/24/2022 Smoker 06/24/2022 Type 2 diabetes mellitus with hyperlipidemia ([facility]) 01/06/2014 Overview (02/08/2024): Med incl: Metformin 500mg 2 tabs BID Trulicity 0.75mg wkly (was on 1.5mg wkly but backed down b/c 1.5 was unavailable) Tresiba 36 units daily On ACEi, statin, ASA Rx'd CGM 11/2023 Lab Results Component Value Date HGBA1C 8.3 (A) 12/05/2023 HGBA1C 9.2 (A) 09/28/2023 HGBA1C 9.8 (A) 06/23/2023 Assessment & Plan (11/26/2023 4:45 PM EDT): Pt states did not toleated trulicity 1.5 mg -causing significant GI effects wants to go back to [place] that [place] before -refilled today trulicity 0.75 mg Hypertension associated with diabetes (CMS/[facility]) 01/06/2014 Resolved Problems Problem Noted Date Diagnosed Date Resolved Date Partial retinal artery occlusion 06/24/2022 09/29/2022 Immunizations Name Administration Dates Next Due Influenza injectable quadriv alent preservative free 06/23/2023,05/26/2022,08/24/2021 Moderna Covid-19 Vaccine 6+ Bivalent 07/15/2022 Pfizer Covid-19 Vaccine 12+ 08/26/2021,,01/03/2021 Pneumococcal Conjugate PCV 20 06/23/2023 Tdap 02/08/2022 Zoster, Recombinant 05/02/2022,02/28/2022 Family History Medical History Relation Name Comments Stroke Father Diabetes Mother Relation Name Status Comments Father Mother Social History Tobacco Use Types Packs/Day Years Used Date Smoking Tobacco: Every Day Cigarettes Passive Smoke Exposure: Current Smokeless Tobacco: Never Tobacco Cessation:Ready to Q uit: Not Asked; Counseling Given: Not Answered Alcohol Use Standard Drinks/Week Comments Not Currently 0 (1 standard drink = 0.6 oz pur e alcohol) Housing Stability Answer Date Recorded What is your housing situation today? I do not have housing (Staying with others, in a hotel, in a halfway, living outside on the street, on a beach, in a car, or in a park 06/12/[address] you li ve. Do you have problems with any of the following? None of the above 06/12/2023 Food Insecurity Answer Date Recorded Within the past 12 months, y ou worried that your food would run out before you got money to buy more: Never True 06/20/2023 Within the past 12 months,th e food you bought just didn't last and you didn't have enough money to get more: Never True Transportation Answer Date Recorded In the past 12 months, has l ack of transportation kept you from medical appts, meetings, work or from getting things needed for daily living? No 06/20/2023 Utilities Answer Date Recorded In the past 12 months, has t he electric, gas, oil or water company threatened to shut off services in your home? No 06/20/2023 Sex and Gender Information Value Date Recorded Sex Assigned at Male 07/04/2022 10:15 AM EDT Legal Sex Male 10:15 AM EDT Gender Identity Male 07/04/2022 10:15 AM EDT Sexual Orientation Don't know 07/04/2022 10 :15 AM EDT Last Filed Vital Signs Vital Sign Reading Time Taken Comments Blood Pressure 162/96 12/05/2023 1:07 PM EDT these are lizzettes vials i put in Pulse 78 12/05/2023 1:07 PM EDT Temperature 36.2 ??C (97.2 ??F) 12/05/2023 1 :07 PM EDT Respiratory Rate 14 11/24/2023 2:13 PM EDT Oxygen Saturation 100% 12/05/2023 1:0 7 PM EDT Inhaled Oxygen Concentration - - Weight 77.4 kg (170 lb 9.6 oz) 12/05/2023 1:07 PM EDT Height 175.3 cm (5' 9 ) 11/24/2023 2:13 PM EDT Body Mass Index 25.19 11/24/2023 2:13 PM EDT Plan of Treatment Health Maintenance Due Date Last Done Comments CT Colonography 1962 Colonoscopy 1962 Colorectal Cancer Screening 1962 Depression Screening 1962 FIT DNA/Cologuard 1962 FIT 1962 FOBT 1962 Sigmoidoscopy 1962 Diabetes: Foot Exam 01/12/1972 Alcohol/Substance Use Screening 1974 RSV Patients and Patients Aged 60 years or older (1 - Risk 60-74 years 1-dose series) 2022 Diabetes: Urine Protein Screening 02/08/2023 02/08/2022 Lipid Panel 02/08/2023 02/08/2022 SDOH Screening 09/20/2023 09/20/2022 Diabetes: Hemoglobin A1C 03/05/2024 024, 09/28/2023, 06/23/2023, Additional history exists COVID-19 Vaccine ( season) 2024 07/15/2022, 08/26/2021, 01/24/2021, Additional history exists Influenza Vaccine (#1) 2024 , 05/26/2022, 08/24/2021 Eye Exam 11/16/2024 11/17/2023, 11/02, 11/17/2023, Additional history exists Tobacco Screening 12/18/2024 12/19/2023 DTaP/Tdap/Td Vaccines (2 - Td or Tdap) 02/09/2032 02/08/2022 HIV Screening Completed 02/08/2022 Hepatitis C Screening Completed 02/08/2022 Zoster Vaccines Completed 05/02/2022, 02/28/2022 Pneumococcal Vaccine: 50+ Years Completed 06/23/2023 Pneumococcal Vaccine: Pediatrics (0 to 5 Years) and At-Risk Patients (6 to 49) Years) Completed 06/23/2023 HIB Vaccines Aged Out No longer eligi ble based on patient's age to complete this topic HPV Vaccines Aged Out No longer eligi ble based on patient's age to complete this topic Hepatitis A Vaccines Aged Out No long er eligible based on patient's age to complete this topic Hepatitis B Vaccines Aged Out No long er eligible based on patient's age to complete this topic IPV Vaccines Aged Out No longer eligi ble based on patient's age to complete this topic Meningococcal Vaccine Aged Out No zack mehul eligible based on patient's age to complete this topic RSV under 20 months Aged Out No longe r eligible based on patient's age to complete this topic Rotavirus Vaccines Aged Out No longer eligible based on patient's age to complete this topic Procedures Procedure Name Priority Date/Time Associated Diagnosis Comments POCT GLYCATED HEMOGLOBIN, TOTAL Routine 12/05/2023 1:32 PM EDT Type 2 diabetes mellitus with hyperlipidemia (CMS/HCC) (CMS/HCC) ZZZ HISTORICAL HEPATITIS C AB W/REFL TO HCV RNA, QN, PCR Routine 02/08/2022 11:53 AM EDT HIV 1/2 ANTIGEN/ANTIBODY, FOURTH GENERATION W/RFL Routine 02/08/2022 11:53 AM EDT ALBUMIN, RANDOM URINE W/CREATININE Routine 02/08/2022 11:53 AM EDT LIPID PANEL, STANDARD Routine 02/08/2022 11:53 AM EDT from Last 3 Months or Most Recently Relevant to Health Maintenance Results * (ABNORMAL) POCT A1C (12/05/2023 1:32 PM EDT) Hemoglobin A1C 8.3(A) 4.0 - 6.0 % QC Media Lot # [id number] Lot# Expiration Date Blood 12/05/2023 1:32 PM EDT Critical access hospital POINT OF CARE TEST ENTER/EDIT OR DERABLES Final Result * HEPATITIS C AB W/REFL TO HCV RNA, QN, PCR (02/08/2022 11:53 AM EDT) HEPATITIS C ANTIBODY NON-REACT ALEJANDRO NON-REACT ALEJANDRO [facility] INDEX 0.02 <1.00 [facility] Comment: ?? HCV antibody was non-reactive. There is no laboratory ?? evidence of HCV infection. ?? In most cases, no further action is required. However, if recent HCV exposure is suspected, a test for HCV RNA (test code 22276) is suggested. ?? For additional information please refer to http://education.Active International/faq/HRA48i2 (This link is being provided for informational/ educational purposes only.) ?? 02/08/2022 11:5 3 AM EDT us Shanda Joseph ANP HISTORICAL/NON ORDERABLE LABS Fi nal Result Performing Organization Address [facility] Phone Number [facility] [address] * ALBUMIN, RANDOM URINE W/CREATININE (02/08/2022 11:53 AM EDT) Microalbumin Urine 2.8 See Note: mg/dL [facility] Comment: Reference Range: ?? Reference Range Not established Microalb/Creat Ratio 27 <30 mcg/mg creat [facility] Comment: ?? The ADA defines abnormalities in albumin excretion as follows: ?? Albuminuria Category ?Result (mcg/mg creatinine) ?? Normal to Mildly increased ?? <30 Moderately increased ? 30-299 ?? Severely increased ? > OR = 300 ?? The ADA recommends that at least two of three specimens collected within a 3-6 month period be abnormal before considering a patient to be within a diagnostic category. Creatinine, Urine 105 20 - 320 mg/dL [facility] 02/08/2022 11:5 3 AM EDT Shanda Joseph ANP LAB URINE ORDERABLES Final Resul t Performing Organization Address [facility] Phone Number [facility] [address] * HIV 1/2 ANTIGEN/ANTIBODY,FOURTH GENERATION W/RFL (02/08/2022 11:53 AM EDT) HIV-1/2 ANTIGEN AND ANTIBODIES, 4TH GENERATION W/ REFLEX NON-REACT ALEJANDRO NON-REACT ALEJANDRO [facility] Comment: HIV-1 antigen and HIV-1/HIV-2 antibodies were not detected. There is no laboratory evidence of HIV infection. ?? PLEASE NOTE: This information has been disclosed to you from records whose confidentiality may be protected by state law. ??If your state requires such protection, then the state law prohibits you from making any further disclosure of the information without the specific written consent of the person to whom it pertains, or as otherwise permitted by law. A general authorization for the release of medical or other information is NOT sufficient for this purpose. ? For additional information please refer to http://YOUnite.Active International/faq/XLW368 (This link is being provided for informational/ educational purposes only.) ? The performance of this assay has not been clinically validated in patients less than 2 years old. ?? 02/08/2022 11:5 3 AM EDT Shanda Joseph [facility] LAB BLOOD ORDERABLES Final Resul t [facility] [address] * (ABNORMAL) LIPID PANEL, STANDARD (02/08/2022 11:53 AM EDT) Chol/HDLC Ratio 6.5(H) <5.0 (calc) [facility] Cholesterol, Total 247(H) <200 mg/dL [facility] HDL Cholesterol 38(L) > OR = 40 mg/dL [facility] LDL Cholesterol SEE COMMENT mg/dL (calc) [facility] Comment: ?? LDL cholesterol not calculated. Triglyceride levels greater than 400 mg/dL invalidate calculated LDL results. ?? Reference range: <100 ?? Desirable range <100 mg/dL for primary prevention; ?? <70 mg/dL for patients with CHD or diabetic patients ?? with > or = 2 CHD risk factors. ?? LDL-C is now calculated using the Erna ?? calculation, which is a validated novel method providing ?? better accuracy than the Friedewald equation in the ?? estimation of LDL-C. ?? Juan C GRANT et al. JOSHUA. 2013;310(19): 0870-7790 ?? (http://YOUnite.Noblivity/faq/HLI308) Non-HDL Cholesterol 209(H) <130 mg/dL (calc) [facility] Comment: For patients with diabetes plus 1 major ASCVD risk ?? factor, treating to a non-HDL-C goal of <100 mg/dL ?? (LDL-C of <70 mg/dL) is considered a therapeutic ?? option. Triglycerides 425(H) <150 mg/dL [facility] Comment: ?? If a non-fasting specimen was collected, consider repeat triglyceride testing on a fasting specimen if clinically indicated. ?? George et al. J. of Clin. Lipidol. 2015;9:129-169. ?? 02/08/2022 11:5 3 AM EDT us [facility] LAB BLOOD ORDERABLES Final Resul t [facility] [address] from Last 3 Months or Most Recently Relevant to Health Maintenance Insurance [facility] C[facility] N FULL Care Teams Egg Caser Relationship Specialty Start Date End Date Shanda Joseph ANP [address] [place] [phone] PCP - General Family Medicine 02/22/22
--- OUTSIDE RECORDS SUMMARY | 2024-10-31 09:48 | XMS_ITS | Encounter Summary ---
Author Organization [employer] Address [address] [place] [address] Care Team Providers Care Blending Supervisor Name Role Phone Shanda Joseph Primary Care Provider Encounter Details Date Type Department Care Team (Late st Contact Info) Description 09/09/2022 Telephone [facility] [address] [place], [place] [phone] Shanda Joseph ANP [address] [place], [place] [phone] Social History Tobacco Use Types Packs/Day Years Used Date Smoking Tobacco: Never Assessed Sex and Gender Information Value Date Recorded Sex Assigned at Male 07/04/2022 10:15 AM EDT Legal Sex Male 10:15 AM EDT Gender Identity Male 07/04/2022 10:15 AM EDT Sexual Orientation Don't know 07/04/2022 10 :15 AM EDT documented as of this encounter Plan of Treatment Not on file documented as of this encounter Visit Diagnoses Not on filedocumented in this encounter Care Teams Blending Supervisor Relationship Specialty Start Date End Date Shanda Joseph ANP [address] [place] [id number] PCP - General Family Medicine 02/22/22 documented as of this encounter
--- OUTSIDE RECORDS SUMMARY | 2024-10-31 09:48 | XMS_ITS ---
Author Organization [facility] Address [address] [place] [address] Care Team Providers Care Mica Spreader Name Role Phone PB JOHNSON N.P. Primary Care Provider [place] [phone] REASON FOR VISIT cancel procedure Encounters Encounter Location Date Provider Diagnosis [facility] [address] [place] [address] 10/16/2023 [facility] [place] PLAN OF TREATMENT No Information
--- OUTSIDE RECORDS SUMMARY | 2024-10-31 09:49 | XMS_ITS ---
Author Organization [facility] Address [address] [place] [phone] Care Team Providers Care Yarn Bleaching Machine Operator Name Role Phone PB JOHNSON N.P. Primary Care Provider [place] [phone] MEDICATIONS Medication SIG (Take, Route, Frequency, Duration) Notes Start Date End Date Status MiraLax (colon prep) 17 GM/SCOOP 1 238 Gm bottle mixed with Gatorade or Crystal Light Orally begin at 5:00 p.m. the day before the procedure for 1 day 08/03/2023 Active Dulcolax (colon prep) 5 MG take at 3:00 p.m and 7:00p.m. Orally two tablets twice a day for one day for 1 day 08/03/2023 Active Encounters Encounter Location Date Provider Diagnosis [facility] [address] [address] 07/30/2023 [facility] [place] PLAN OF TREATMENT Medication Medication Name Sig Start Date Stop Date Notes MiraLax (colon prep) 17 GM/SCOOP 1 238 Gm bottle mixed with Gatorade or Crystal Light Orally begin at 5:00 p.m. the day before the procedure for 1 day 08/03/2023 Dulcolax (colon prep) 5 MG take at 3:00 p.m and 7:00p.m. Orally two tablets twice a day for one day for 1 day 08/03/2023
--- OUTSIDE RECORDS SUMMARY | 2024-10-31 09:49 | XMS_ITS ---
Author Organization [facility] Address [address] [place] [address] Care Team Providers Care Imaging Technologist Name Role Phone PB JOHNSON N.P. Primary Care Provider [place] [phone] REASON FOR VISIT gerd,wt loss,screening Encounters Encounter Location Date Provider Diagnosis [facility] Outpatient [address] [place], [place] [phone] 10/18/2023 [facility] [place] PLAN OF TREATMENT No Information
--- OUTSIDE RECORDS SUMMARY | 2024-10-31 09:49 | XMS_ITS | Patient Health Record ---
Author Organization [facility] Address [address] [place] [phone] Care Team Providers Care Floor Press Operator Name Role Phone PB JOHNSON N.P. Primary Care Provider Twin Ar[place] Unavailable [phone] ALLERGIES No Known Allergies REASON FOR REFERRAL No Information MEDICATIONS Medication SIG (Take, Route, Frequency, Duration) Notes Start Date End Date Status metFORMIN HCl 500 MG TAKE 2 TABLETS BY MOUTH TWICE DAILY IN THE MORNING AND EVENING WITH MEALS Oral for 90 Active Atorvastatin Calcium 40 MG TAKE 1 TABLET BY MOUTH EVERY DAY (for cholesterol) Oral for 90 Active Vitamin D High Potency 25 MCG (1000 UT) TAKE 1 CAPSULE BY MOUTH DAILY IN THE MORNING Diagnosis Unavailable Oral for 90 Active Aspirin Low Dose 81 MG TAKE 1 TABLET BY MOUTH EVERY DAY Oral for 90 Active MiraLax (colon prep) 17 GM/SCOOP 1 238Gm bottle mixed with Gatorade or Crystal Light Orally begin at 5:00 p.m. the day before the procedure for 1 day Please put instructions in Nepali. Thanks very much 04/30/2023 Active Dulcolax (colon prep) 5 MG take at 3:00 p.m and 7:00p.m. Orally two tablets twice a day for one day for 1 day Please put instructions in Nepali. Thanks very much 04/30/2023 Active MiraLax (colon prep) 17 GM/SCOOP 1 238 Gm bottle mixed with Gatorade or Crystal Light Orally begin at 5:00 p.m. the day before the procedure for 1 day 08/03/2023 Active Dulcolax (colon prep) 5 MG take at 3:00 p.m and 7:00p.m. Orally two tablets twice a day for one day for 1 day 08/03/2023 Active Omeprazole 20 MG 1 capsule 30 minutes before morning meal Orally Once a day Active Tresiba FlexTouch 100 UNIT/ML INJECT 32 UNITS SUBCUTANEOUSLY DAILY Diagnosis Unavailable Subcutaneous for 45 Active Lisinopril 10 MG TAKE 1 TABLET BY MOUTH EVERY MORNING Diagnosis Unavailable Oral for 90 Active SOCIAL HISTORY Tobacco Use: Social History Observation Description Date Details (start date - stop date) Current Smoker NA - NA Sex Assigned At : Social History Observation Description Sex Assigned At Unknown Tobacco Use/Smoking Question Answer Notes Patient is a current smoker How often do you smoke cigarettes? every day How many cigarettes a day do you smoke? 6-10 Alcohol Screen Question Answer Notes Did you have a drink containing alcohol in the p ast year? No Points 0 Interpretation Negative PROBLEMS Problem Type ICD Code Onset Dates Problem Status W/U Status Risk SNOMED Code Notes Problem Colon cancer screening (Z12.11) Active confirmed 772744520 Problem Weight loss (R63.4) Active confirmed 89 932076 Problem Gastroesophageal reflux disease, unspecified whether esophagitis present (K21.9) Active confirmed [id number] PLAN OF TREATMENT Future Test Test Name Order Date UPPER GI ENDOSCOPY 04/28/2023 COLONOSCOPY 04/28/2023 Insurance Providers Payer Name Payer Address Payer Phone Subscriber Number Group Number Insured Name Patient Relationship to Insured Coverage Start Date Coverage End Date MEDICAID OF [employer] [address] [place] [address] [phone] [id number] ISABEL SHELLEY Self - patient is the insured MEDICAL (GENERAL) HISTORY Medical History History ICD Code DM HTN GERD Denies CA,CVA,Lung disease,renal disease Hyperlipidemia EtOH abuse-reports sobriety since 09/2022 as of the 04/2023 OV Surgical History Surgery Date(Month/Year) Cataract removal bilaterally
== END 2024-10-31 09:06 | disposition home or self-care (01) ==
LOC: HO.CT 09:05
PROVIDERS: PCP Internal Medicine Geriatric Medicine; Visit Provider Physician Assistant Medical
DX: R91.1 Solitary pulmonary nodule (principal); F17.210 Nicotine dependence, cigarettes, uncomplicated
CPT/HCPCS: 71250

== ENCOUNTER → 2024-10-31 09:06 | Outpatient (BNV) | payer MEDICAID, SELFPAY | PROVIDERS: PCP Internal Medicine Geriatric Medicine; Visit Provider Nuclear Medicine | DX: R91.1 Solitary pulmonary nodule (principal) | CPT/HCPCS: 71250 ==

== ENCOUNTER 2025-06-17 13:23 | Outpatient (REF) | payer MEDICAID, SELFPAY ==
--- OUTSIDE RECORDS SUMMARY | 2025-06-17 16:10 | XMS_ITS | Patient Health Record ---
Author Organization [facility] Address [address] [place] [address] Care Team Providers Care Lens Inserter Name Role Phone PB JOHNSON N.P. Primary Care Provider Twin Aranda Unavailable [phone] Allergies No Known Allergies Reason For Referral No Information Medications Medication SIG (Take, Route, Frequency, Duration) Notes Start Date End Date Status metFORMIN HCl 500 MG TAKE 2 TABLETS BY MOUTH TWICE DAILY IN THE MORNING AND EVENING WITH MEALS Oral; Duration: 90 Active Atorvastatin Calcium 40 MG TAKE 1 TABLET BY MOUTH EVERY DAY (for cholesterol) Oral; Duration: 90 Active Vitamin D High Potency 25 MCG (1000 UT) TAKE 1 CAPSULE BY MOUTH DAILY IN THE MORNING Diagnosis Unavailable Oral; Duration: 90 Active Aspirin Low Dose 81 MG TAKE 1 TABLET BY MOUTH EVERY DAY Oral; Duration: 90 Active MiraLax (colon prep) 17 GM/SCOOP 1 238Gm bottle mixed with Gatorade or Crystal Light Orally begin at 5:00 p.m. the day before the procedure; Duration: 1 day Please put instructions in [place]. Thanks very much 04/30/2023 Active Dulcolax (colon prep) 5 MG take at 3:00 p.m and 7:00p.m. Orally two tablets twice a day for one day; Duration: 1 day Please put instructions in [place]. Thanks very much 04/30/2023 Active MiraLax (colon prep) 17 GM/SCOOP 1 238 Gm bottle mixed with Gatorade or Crystal Light Orally begin at 5:00 p.m. the day before the procedure; Duration: 1 day 08/03/2023 Active Dulcolax (colon prep) 5 MG take at 3:00 p.m and 7:00p.m. Orally two tablets twice a day for one day; Duration: 1 day 08/03/2023 Active Omeprazole 20 MG 1 capsule 30 minutes before morning meal Orally Once a day Active Tresiba FlexTouch 100 UNIT/ML INJECT 32 UNITS SUBCUTANEOUSLY DAILY Diagnosis Unavailable Subcutaneous; Duration: 45 Active Lisinopril 10 MG TAKE 1 TABLET BY MOUTH EVERY MORNING Diagnosis Unavailable Oral; Duration: 90 Active Social History Tobacco Use: Social History Observation Description Date Details (start date - stop date) Current Smoker NA - NA Tobacco Use/Smoking Question Answer Notes Patient is a current smoker How often do you smoke cigarettes? every day How many cigarettes a day do you smoke? 6-10 Alcohol Screen Question Answer Notes Did you have a drink containing alcohol in the p ast year? 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, Smoker Problems Problem Type SNOMED Code ICD Code Onset Dates Problem Status W/U Status Risk Notes Problem Colon cancer screening (670959736) Colon cancer screening (Z12.11) Active confirmed Problem Weight loss (038564312) Weight loss (R63.4) Active confirmed Problem Gastroesophageal reflux disease (709241456) Gastroesophageal reflux disease, unspecified whether esophagitis present (K21.9) Active confirmed Plan Of Treatment Future Test Test Name Order Date UPPER GI ENDOSCOPY 04/28/2023 COLONOSCOPY 04/28/2023 Insurance Providers Payer Name Payer Address Payer Phone Subscriber Number Group Number Insured Name Patient Relationship to Insured Coverage Start Date Coverage End Date [facility] [facility] [address] [place] [address] [id number] ISABEL SHELLEY Self - patient is the insured Medical (General) History Medical History History ICD Code DM HTN GERD Denies MD,CVA,Lung disease,renal disease Hyperlipidemia EtOH abuse-reports sobriety since 09/2022 as of the 04/2023 OV Surgical History Surgery Date(Month/Year) Cataract removal bilaterally
--- OUTSIDE RECORDS SUMMARY | 2025-06-17 16:10 | XMS_ITS | Encounter Summary ---
Author Organization [facility] Address [address] [place] [address] Care Team Providers Care Information Management Manager Name Role Phone Shanda Joseph Primary Care Provider [phone] Encounter Details Date Type Department Care Team (Late st Contact Info) Description 09/09/[address] [address] Shanda Joseph ANP [address] [place] [phone] Social History Tobacco Use Types Packs/Day Years Used Date Smoking Tobacco: Never Assessed Sex and Gender Information Value Date Recorded Sex Assigned at Male 07/04/2022 10:15 AM EDT Legal Sex Male 10:15 AM EDT Gender Identity Male 07/04/2022 10:15 AM EDT Sexual Orientation Don't know 07/04/2022 10 :15 AM EDT documented as of this encounter Plan of Treatment Upcoming Encounters Date Type Department Care Team (Late st Contact Info) Description 06/30/2025 2:15 PM EDT Office Visit [address] [address] Shanda Joseph ANP [address] [place] [phone] 07/04/2025 11:30 AM EDT Medication Management [address] [address] Kim Mcrae, PharmD [address] [place] [phone] 09/12/2025 11:30 AM EST Office Visit [facility] [address] [place] [address] Oneyda Merrill OD [address] [place] [address] documented as of this encounter Visit Diagnoses Not on filedocumented in this encounter Care Teams Information Management Manager Relationship Specialty Start Date End Date Shanda Joseph ANP [address] [place] [address] PCP - General Family Medicine 02/22/22 documented as of this encounter
--- OUTSIDE RECORDS SUMMARY | 2025-06-17 16:10 | XMS_ITS | Clinical Summary ---
Author Organization [employer] Address [address] [facility] 7[address] [place] [address] Care Team Providers Care Aircraft Instrument Mechanic Name Role Phone Shanda Joseph MONSTER Primary Care Provider [phone] Allergies No known active allergies Medications FREESTYLE LITE test stripIndications:T ype 2 diabetes mellitus with other circulatory complication, with long-term current use of insulin (HCC) TEST BLOOD SUGAR TWICE DAILY 100 each 11 023 Active TRUEplus Lancets 33G miscIndications:Ty pe 2 diabetes mellitus with other circulatory complication, with long-term current use of insulin (HCC) Test blood sugar twice daily and more as needed 100 each 11 023 Active Sure Comfort Pen Phoenix 31G X 5 MM miscIndications:Ty pe 2 diabetes mellitus with hyperglycemia, with long-term current use of insulin (HCC) USE ONCE DAILY WITH INSULIN 100 each 3 023 Active aspirin 81 MG EC tabletIndications: Cardiovascular event risk Take 1 tablet (81 mg) by mouth in the morning. 90 tablet 024 Active pantoprazole (ProtoNix) 40 MG EC tablet Take 1 tablet by mouth Once per day. Do not crush, chew, or split. Active ferrous sulfate 325 (65 Fe) MG EC tablet Take 1 tablet by mouth every other day. Do not crush, chew, or split. Active semaglutide (Ozempic, 1 MG/DOSE,) 4 MG/3ML solution pen-injector Inject 1 mg under the skin 1 (one) time per week. Active atorvastatin (Lipitor) 80 MG tablet Take 1 tablet by mouth Once per day. Active nitroglycerin (Nitrostat) 0.[address] 0.3 mg under the tongue every 5 (five) minutes if needed for chest pain (up to 3 tabs total). Active metoprolol succinate XL (Toprol-XL) 50 MG 24 hr tablet Take 1 tablet by mouth Once per day. Do not crush or chew. Active insulin glargine (Lantus SoloStar) 100 UNIT/ML pen Inject 10 Units under the skin at bedtime. Active empagliflozin (Jardiance) 10 MGIndications:Hype rtension associated with diabetes (HCC) Take 1 tablet (10 mg) by mouth Once per day. 30 tablet 05/28 Active metFORMIN (Glucophage) 500 MG tabletIndications: Hypertension associated with diabetes (HCC) Take 1 tablet (500 mg) by mouth with breakfast. 30 tablet Active senna-docusate sodium (Senokot-S) 8.6-50 MG tabletIndications: Constipation, unspecified constipation type Take 1 tablet by mouth Once per day. 60 tablet Active Continuous Glucose Equip Maint Eng (FreeStyle Kiana 3 Excello) deviceIndications: Hypertension associated with diabetes (HCC) 1 each Once per day. Use as directed for CGM 1 each Active Continuous Glucose Sensor (FreeStyle Kiana 3 Plus Sensor) miscIndications:Hy pertension associated with diabetes ([facility]) 1 each every 15 days. Apply 1 every 15 days as directed for CGM 2 each Active glucose blood (FreeStyle Precision Johnny Test) test stripIndications:H ypertension associated with diabetes ([facility]) Use to test blood sugar 3 times daily in case of CGM failure or extremes of BG 100 each 05/28 Active Blood Glucose Monitoring Suppl (FreeStyle Berea Lite) w/Device kit TEST BLOOD SUGAR TWICE DAILY 022 05/27 Discontinued( Med list cleanup (will not trigger notification to Pharmacy)) naloxone (Narcan) 4 mg/0.1 mL nasal spray FOR SUSPECTED OPIOID OVERDOSE. SPRAY 0.1mL IN ONE NOSTRIL. REPEAT IN ALTERNATE NOSTRIL 2-3 MINUTES IF NEEDED. SEEK MEDICAL ATTENTION IMMEDIATELY EVEN IF PATIENT RESPONDS. 022 05/27 Discontinued( Med list cleanup (will not trigger notification to Pharmacy)) nicotine (Nicoderm, Step 2) 14 MG/24HR patch APPLY 1 PATCH TOPICALLY TO THE SKIN DAILY IN THE MORNING THEN REMOVE AT BEDTIME DIRECTED. DO NOT SMOKE WHILE USING PATCH 05/27 Discontinued( Med list cleanup (will not trigger notification to Pharmacy)) Nicotrol 10 MG inhaler INHALE 1 UNITS BY MOUTH 6 TIMES PER DAY NEEDED 05/27 Discontinued( Med list cleanup (will not trigger notification to Pharmacy)) nicotine polacrilex (Nicorette) 4 MG gum CHEW 1 PIECE OF GUM EVERY 1 TO 2 HOURS NEEDED AND DIRECTED 05/27 Discontinued( Med list cleanup (will not trigger notification to Pharmacy)) psyllium (Metamucil Smooth Texture) 58.6 % powder use 1 tsp daily, increase slowly to 1 tsp 3x/daily in 8oz of water 05/27 Discontinued( Med list cleanup (will not trigger notification to Pharmacy)) varenicline (Chantix) 1 MG tablet TAKE 1 TABLET BY MOUTH TWICE DAILY AFTER MEALS WITH GLASS OF WATER 05/27 Discontinued( Med list cleanup (will not trigger notification to Pharmacy)) omeprazole (PriLOSEC) [address] capsuleIndications :Gastroesophageal reflux disease, unspecified whether esophagitis present Take 1 capsule (20 mg) by mouth before breakfast. Do not crush or chew. 30 capsule 1 023 05/27 Discontinued( Med list cleanup (will not trigger notification to Pharmacy)) Tresiba FlexTouch 100 UNIT/ML injectionIndicatio ns:Type 2 diabetes mellitus with other circulatory complication, with long-term current use of insulin (HCC),Mild nonproliferative diabetic retinopathy associated with type 2 diabetes mellitus, macular edema presence unspecified, unspecified laterality (HCC) Inject 36 units subcutaneously daily 15 mL 5 023 05/27 Discontinued( Med list cleanup (will not trigger notification to Pharmacy)) atorvastatin (Lipitor) 40 MG tablet TAKE 1 TABLET BY MOUTH EVERY DAY (for cholesterol) 90 tablet 3 024 05/27 Discontinued( Med list cleanup (will not trigger notification to Pharmacy)) Vitamin D High Potency 25 MCG (1000 UT) capsuleIndications :Vitamin D deficiency TAKE 1 CAPSULE BY MOUTH DAILY IN THE MORNING 90 capsule 024 05/27 Discontinued( Med list cleanup (will not trigger notification to Pharmacy)) famotidine (Pepcid) 20 MG tablet Take 1 tablet (20 mg) by mouth at bedtime. 30 tablet 024 05/27 Discontinued( Med list cleanup (will not trigger notification to Pharmacy)) dulaglutide (Trulicity) 0.75 MG/0.5ML solution pen-injector Inject 0.75 mg under the skin 1 (one) time per week. 4 each 1 024 05/27 Discontinued( Med list cleanup (will not trigger notification to Pharmacy)) Continuous Blood Gluc Equip Maint Eng (FreeStyle Kiana 2 Excello) deviceIndications: Type 2 diabetes mellitus with other circulatory complication, with long-term current use of insulin ([facility]) Scan sensor every 8 hours 1 each 024 05/27 Discontinued( Med list cleanup (will not trigger notification to Pharmacy)) Continuous Blood Gluc Sensor (FreeStyle Kiana 2 Sensor) miscIndications:Ty pe 2 diabetes mellitus with other circulatory complication, with long-term current use of insulin ([facility]) Apply 1 sensor every 14 days 2 each 11 024 05/27 Discontinued( Med list cleanup (will not trigger notification to Pharmacy)) metFORMIN (Glucophage) 500 MG tablet TAKE 2 TABLETS BY MOUTH TWICE DAILY IN THE MORNING AND EVENING WITH MEALS 360 tablet 2 024 05/27 Discontinued( Med list cleanup (will not trigger notification to Pharmacy)) lisinopril 20 MG tabletIndications: Primary hypertension TAKE 1 TABLET BY MOUTH EVERY DAY IN THE MORNING 90 tablet 2 024 05/27 Discontinued( Med list cleanup (will not trigger notification to Pharmacy)) metFORMIN (Glucophage) 1000 MG tablet Take 1,000 mg by mouth with breakfast and with evening meal. 05/28 Discontinued( Reorder (will not trigger notification to Pharmacy)) ertugliflozin (Steglatro) Take 1 tablet by mouth Once per day. 05/28 Discontinued( Alternate therapy) Active Problems Problem Noted Date Diagnosed Date Illiterate 05/28/2025 Atherosclerotic ulcer of aorta 12/05/2023 Vertigo 11/26/2023 [...] 06/24/2022 Type 2 diabetes mellitus with hyperlipidemia 01/2014 Overview (02/08/2024): Med incl: Metformin 500mg 2 [...] trulicity 0.75 mg Hypertension associated with diabetes 01/06/2014 Resolved Problems Problem Noted Date Diagnosed Date Resolved Date Partial retinal artery occlusion 06/24/2022 09/29/2022 Encounters Date Type Department Care Team Description 06/05/2025 Telephone [facility] MEDICINE [address] [place] [address] Isha Fallon RN CGM Initial Appointment 05/30/2025 10:00 AM EDT Office Visit [facility] OPTOMETRY [address] [place] [address] Oneyda Merrill, OD 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 with type 2 diabetes mellitus (CMS/HCC) (Primary Dx); 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; Hollenhorst plaque, right eye; Pseudophakia of both eyes; 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; Presbyopia 05/30/2025 Travel 05/29/2025 Telephone [facility] MEDICINE [address] [place] [address] Perla Mendieta RN Prior Auth Prescription 05/28/2025 2:30 PM EDT Office Visit [facility] [address] [place] [address] Shanda Joseph ANP Coronary artery disease involving bir[place] creek coronary artery of [place] creek heart without angina pectoris (Primary Dx); Status post coronary artery bypass graft; Hospital discharge follow-up; Encounter for immunization; Atherosclerosis of both carotid arteries; Hypertension associated with diabetes (CMS/HCC); Smoker; Constipation, unspecified constipation type; Illiterate; Need for hepatitis B screening test 05/28/2025 Telephone [facility] MEDICINE [address] [place] [address] Kim Mcrae PharmD 05/28/2025 Travel 05/27/[address] [address] Shanda Joseph ANP chart prep 05/20/2025 Patient Outreach [address] [phone] Shanda Joseph ANP Transition Of Care (Tcm) (HDF- Scheduled ) 05/20/[address] [phone] Shanda Joseph ANP 03/27/2025 Patient Outreach [address] [address] Shanda Joseph ANP Transition Of Care (Tcm) (HDF- Unscheduled (Patient was transferred to a [facility]/Re) from Last 3 Months Immunizations Immunization Administration Dates Next Due Hep A, Adult 01/15/2025,03/14/2024 Influenza injectable quadriv alent preservative free 06/23/2023,05/26/2022,08/24/2021 Influenza, seasonal, injecta ble, preservative free 05/28/2025 Moderna Covid-19 Vaccine 6+ Bivalent 07/15/2022 Pfizer [...] drink = 0.6 oz pur e alcohol) Depression Answer Date Recorded Patient Health Questionnaire-9 Score 3 05/28/2025 Patient Health Questionnaire-9 Score 3 05/28/2025 Last PHQ-9: Questionnaire Data Not on file 0 05/28/2025 Housing Stability Answer Date Recorded What is your housing situation today? I do not have housing (Staying with others, in a hotel, in a residential, living outside on the street, on a beach, in a car, or in a park 05/28/[address] you li ve. Do you have problems with any of the following? None of the above 05/28/2025 Food Insecurity Answer Date Recorded Within the past 12 months, y ou worried that your food would run out before you got money to buy more: Never True 05/28/2025 Within the past 12 months,th e food you bought just didn't last and you didn't have enough money to get more: Never True Transportation Answer Date Recorded In the past 12 months, has l ack of transportation kept you from medical appts, meetings, work or from getting things needed for daily living? No 05/28/2025 Utilities Answer Date Recorded In the past 12 months, has t he electric, gas, oil or water company threatened to shut off services in your home? No 05/28/2025 Depression Answer Date Recorded Patient Health Questionnaire-2 Score 0 05/28/2025 Internet Access Answer Date Recorded Internet Access Q1 Yes 05/28/2025 Internet Access Q2 Not on file 05/28/2025 Sex and Gender Information Value Date Recorded Sex Assigned at Male 07/04/2022 10:15 AM EDT Legal Sex Male 10:15 AM EDT Gender Identity Male 07/04/2022 10:15 AM EDT Sexual Orientation Don't know 07/04/2022 10 :15 AM EDT Last Filed Vital Signs Vital Sign Reading Time Taken Comments Blood Pressure 140/90 05/28/2025 2:50 PM EDT Pulse 88 05/28/2025 2:50 PM EDT Temperature 36.7 C (98.1 F) 05/28/2025 2:50 PM EDT Respiratory Rate 20 05/28/2025 2:50 PM EDT Oxygen Saturation 100% 12/05/2023 1:07 PM EDT Inhaled Oxygen Concentration - - Weight 74.4 kg (164 lb) 05/28/2025 2:50 PM EDT Height 179.8 cm (5' 10.8 ) 05/28/2025 2:50 PM ED T Body Mass Index 23 05/28/2025 2:50 PM EDT Plan of Treatment Upcoming Encounters Date Type Department Care Team (Late st Contact Info) Description 06/30/2025 2:15 PM EDT Office Visit [facility] MEDICINE [address] [place] [address] Shanda Joseph, ANP [address] [place] [address] 07/04/2025 11:30 AM EDT Medication Management [facility] MEDICINE [address] [place] [address] Kim Mcrae, PharmD [address] [place] [address] 09/12/2025 11:30 AM EST Office Visit [facility] OPTOMETRY [address] [place] [address] Oneyda Merrill, OD [address] [place] [address] Health Maintenance Due Date Last Done Comments CT Colonography 1962 Colonoscopy 1962 Colorectal Cancer Screening 1962 FIT DNA/Cologuard 1962 FIT 1962 FOBT 1962 Sigmoidoscopy 1962 Diabetes: Foot Exam 01/12/1972 RSV Patients and Patients Aged 60 years or older (1 - Risk 60-74 years 1-dose series) 2022 Diabetes: Urine Protein Screening 02/08/2023 02/08/2022 Lipid Panel 02/08/2023 02/08/2022 Diabetes: Hemoglobin A1C 03/05/2024 024, 09/28/2023, 06/23/2023, Additional history exists COVID-19 Vaccine ( season) 2025 07/15/2022, 08/26/2021, 01/24/2021, Additional history exists Alcohol/Substance Use Screening 05/28/2026 05/28/2025 Depression Screening 05/28/2026 05/28/2025, 05/28/20 Disability Screening 05/28/2026 05/28/2025 SDOH Screening 05/28/2026 05/28/2025 Eye Exam 05/30/2026 05/30/2025, 05/06, 05/30/2025, Additional history exists Tobacco Screening 06/06/2026 06/06/2025 DTaP/Tdap/Td Vaccines (2 - Td or Tdap) 02/09/2032 02/08/2022 HIV Screening Completed 02/08/2022 Hepatitis C Screening Completed 02/08/2022 Zoster Vaccines Completed 05/02/2022, 02/28/2022 Pneumococcal Vaccine: 50+ Years Completed 06/23/2023 Hepatitis A Vaccines Aged Out 01/15/2025, 03/14/20 No longer eligible based on patient's age to complete this topic Influenza Vaccine Completed 05/28/2025, , 05/26/2022, Additional history exists HIB Vaccines Aged Out No longer eligi [...] patient's age to complete this topic Meningococcal B Vaccine Aged Out No l onger eligible based on patient's age to complete [...] Procedure Name Priority Date/Time Associated Diagnosis Comments OCT, RETINA - OU - BOTH EYES Routine 05/30/2025 10:00 AM EDT 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 with type 2 diabetes mellitus (HCC) AMB REFERRAL TO CARDIOLOGY Urgent 04/21/2025 Coronary artery disease involving [place] coronary artery of [place] heart without angina pectoris Status post coronary artery bypass graft Atherosclerosis of both carotid arteries Hypertension associated with diabetes (CMS/HCC) POCT GLYCATED HEMOGLOBIN, TOTAL Routine 12/05/2023 1:32 [...] Recently Relevant to Health Maintenance Results * OCT, Retina - OU - Both Eyes (05/30/2025 10:00 AM EDT) Oneyda Copeland, OD - 06/06/2025 2:59 PM EDT Images from the original result were not included. OCT [facility] [employer] Optical Coherence Tomography Interpretation Report Measurements: OD OS Macula Thickness 405 microns Approx 600 microns (scan cut off) Test findings: OD: Tenting of fovea with significant edema throughout the macula, scattered intraretinal exudates throughout the macula, choroidal neovascular membrane vs scarring subfoveally with questionable adjacent pocket of subretinal fluid OS: Tenting of fovea with significant edema throughout the macula, scattered intraretinal exudates throughout the macula, choroidal neovascular membrane with edema vs large PED subfoveally Impression and Plan: PDR in both eyes. Will refer to retinal specialist for evaluation and treatment. Will also monitor here in 3 months. Oneyda Merrill OD OPHTH TOMOGRAPHY Final Result * Referral to Cardiology (04/21/2025) us Shanda HOOK OUTPATIENT REFERRAL ORDERABLES F inal Result * (ABNORMAL) POCT A1C (12/05/2023 1:32 PM EDT) Hemoglobin A1C 8.3(A) 4.0 - 6.0 % QC Media Lot # [id number] Lot# Expiration Date [id number] Blood 12/05/2023 1:32 PM EDT us Shanda HOOK POINT OF CARE TEST ENTER/EDIT OR DERABLES Final Result * HEPATITIS C AB W/REFL TO HCV RNA, QN, PCR (02/08/2022 11:53 AM EDT) Pathologist [facility] HEPATITIS C ANTIBODY NON-REACT ALEJANDRO NON-REACT ALEJANDRO [facility] INDEX 0.02 <1.00 [facility] Comment: HCV antibody was non-reactive. There is no laboratory evidence of HCV infection. In most cases, no further action is required. However, if recent HCV exposure is suspected, a test for HCV RNA (test code 06683) is suggested. For additional information please refer to http://education.[employer] Games/faq/GUU10s6 (This link is being provided for informational/ educational purposes only.) 02/08/2022 11:5 3 AM EDT us Shanda Joseph ANP HISTORICAL/NON ORDERABLE LABS Fi nal Result Performing Organization Address Page Hospital Number [facility] [address] * ALBUMIN, RANDOM URINE W/CREATININE (02/08/2022 11:53 AM EDT) Pathologist [facility] Microalbumin Urine 2.8 See Note: mg/dL [facility] Comment: Reference Range: Reference Range Not established Microalb/Creat Ratio 27 <30 mcg/mg creat [facility] Comment: The ADA defines abnormalities in albumin excretion as follows: Albuminuria Category Result (mcg/mg creatinine) Normal to Mildly increased <30 Moderately increased 30-299 Severely increased > OR = 300 The ADA recommends that at least two of three specimens collected within a 3-6 month period be abnormal before considering a patient to be within a diagnostic category. Creatinine, Urine 105 20 - 320 mg/dL [facility] 02/08/2022 11:5 3 AM EDT us Shanda Joseph ANP LAB URINE ORDERABLES Final Resul t Performing Organization Address Page Hospital Number [facility] [address] * HIV 1/2 ANTIGEN/ANTIBODY,FOURTH GENERATION W/RFL (02/08/2022 11:53 AM EDT) HIV-1/2 ANTIGEN AND ANTIBODIES, 4TH GENERATION W/ REFLEX NON-REACT ALEJANDRO NON-REACT ALEJANDRO [facility] Comment: HIV-1 antigen and HIV-1/HIV-2 antibodies were not detected. There is no laboratory evidence of HIV infection. PLEASE NOTE: This information has been disclosed to you from records whose confidentiality may be protected by state law. If your state requires such protection, then the state law prohibits you from making any further disclosure of the information without the specific written consent of the person to whom it pertains, or as otherwise permitted by law. A general authorization for the release of medical or other information is NOT sufficient for this purpose. For additional information please refer to http://Odnoklassniki.[employer]/faq/VVQ922 (This link is being provided for informational/ educational purposes only.) The performance of this assay has not been clinically validated in patients less than 2 years old. 02/08/2022 11:5 3 AM EDT [facility] LAB BLOOD ORDERABLES Final Resul t [facility] [address] * (ABNORMAL) LIPID PANEL, STANDARD (02/08/2022 11:53 AM EDT) [facility] Chol/HDLC Ratio 6.5(H) <5.0 (calc) [facility] Cholesterol, Total 247(H) <200 mg/dL [facility] HDL Cholesterol 38(L) > OR = 40 mg/dL [facility] LDL Cholesterol SEE COMMENT mg/dL (calc) [facility] Comment: LDL cholesterol not calculated. Triglyceride levels greater than 400 mg/dL invalidate calculated LDL results. Reference range: <100 Desirable range <100 mg/dL for primary prevention; <70 mg/dL for patients with CHD or diabetic patients with > or = 2 CHD risk factors. LDL-C is now calculated using the Juan C-Sol calculation, which is a validated novel method providing better accuracy than the Friedewald equation in the estimation of LDL-C. Juan C GRANT et al. JOSHUA. 2013;310(19): 3465-3450 (http://education.TimeBridge.JackBe/faq/JZY750) Non-HDL Cholesterol 209(H) <130 mg/dL (calc) [facility] Comment: For patients with diabetes plus 1 major ASCVD risk factor, treating to a non-HDL-C goal of <100 mg/dL (LDL-C of <70 mg/dL) is considered a therapeutic option. Triglycerides 425(H) <150 mg/dL [facility] Comment: If a non-fasting specimen was collected, consider repeat triglyceride testing on a fasting specimen if clinically indicated. George et al. J. of Clin. Lipidol. 2015;9:129-169. 02/08/2022 11:5 3 AM EDT [facility] LAB BLOOD ORDERABLES Final Resul t [facility] [address] from Last 3 Months or Most Recently Relevant to Health Maintenance Insurance VB Rags C3 Care Teams Aircraft Instrument Mechanic Relationship Specialty Start Date End Date Shanda Joseph ANP [address] [place] [address] PCP - General Family Medicine 02/22/22
--- OUTSIDE RECORDS SUMMARY | 2025-06-17 16:10 | XMS_ITS | Encounter Summary ---
Author Organization [employer] Address [address] [facility] [address] [place] [address] Care Team Providers Care Java Application Developer Name Role Phone Shanda Joseph Primary Care Provider [phone] Encounter Details Date Type Department Care Team ([facility] st Contact Info) Description 05/20/2025 Telephone [facility] MEDICINE [address] [place], [place] [phone] Shanda Joseph ANP [address] [place] [address] Social History Tobacco Use Types Packs/Day Years Used Date Smoking Tobacco: Every Day Cigarettes Passive Smoke Exposure: Current Smokeless Tobacco: Never Alcohol Use Standard Drinks/Week Comments Not Currently 0 (1 standard drink = 0.6 oz pur e alcohol) Housing Stability Answer Date Recorded What is your housing situation today? I do not have housing (Staying with others, in a hotel, in a nursing home, living outside on the street, on a [...] Description 06/30/2025 2:15 PM EDT Office Visit [facility] MEDICINE [address] [place] [address] Shanda Joseph ANP [address] [place] [address] 07/04/2025 11:30 AM EDT Medication Management [facility] MEDICINE [address] [place] [address] Kim Mcrae, PharmD [address] [place] [address] 09/12/2025 11:30 AM EST Office Visit [facility] OPTOMETRY [address] [place] [address] GarfieldOneyda hi, OD [address] [place] [address] documented as of this encounter Visit Diagnoses Not on filedocumented in this encounter Care Teams Java Application Developer Relationship Specialty Start Date End Date Shanda Joseph ANP [address] [place] [address] PCP - General Family Medicine 02/22/22 documented as of this encounter
[2025-06-17 16:19] LABS: MANUAL DIFF FLAG NO
[2025-06-17 16:34] LABS: Hematocrit 40.9 % (42.0-52.0); Hemoglobin 12.7 g/dl (14.0-18.0); Imm Gran Abs Auto 0.06 X10*3/uL (0.00-0.03); Imm Gran Pct Auto 0.6 % (0.0-0.4); Lymphocytes Absolute Auto 1.6 X10*3/uL (1.2-4.9); Mean Corpuscular HGB Conc 31.1 g/dl (31.0-36.0); Mean Corpuscular Hemoglobin 26.3 pg (27.0-33.0); Mean Corpuscular Volume 84.9 fL (80.0-98.0); NRBC Abs Auto 0.000 X10*3/uL (0.0-0.012); NRBC Pct Auto 0.0 /100WBC (0.0-0.2); Platelet Count 169 X10*3/uL (160-400); Red Blood Count 4.82 X10*6/uL (4.60-5.80); White Blood Count 10.7 X10*3/uL (4.8-10.8)
[2025-06-17 17:08] LABS: Microalbum/Creatinine Ratio Ur 569.5 ug/mg cr (<30)
[2025-06-17 17:14] LABS: Vitamin B12 708 pg/mL (200-900)
[2025-06-17 17:21] LABS: Alanine Aminotransferase 15 U/L (0-40); Albumin Level 4.1 g/dL (3.5-5.0); Alkaline Phosphatase 87 U/L (39-117); Anion Gap 10 (12-20); Aspartate Amino Transferase 21 U/L (5-37); Blood Urea Nitrogen 20 mg/dL (9-16); Calcium 9.0 mg/dL (8.4-10.2); Carbon Dioxide 28 mmol/L (22-29); Chloride 107 mmol/L (96-108); Cholesterol 127 mg/dL (<200); Estimated Glomerular Filt Rate > 60; HDL Cholesterol 32 mg/dL (>40); Potassium 4.4 mmol/L (3.3-5.1); Sodium 141 mmol/L (135-145); Total Protein 7.1 g/dL (6.5-8.0); Triglycerides 176 mg/dL (<150)
[2025-06-18 03:41] LABS: HBS Num1 0.00 mIU/mL (0-7.99); HBc Num1 0.07 S/CO (0.00-0.79); HBsAGNum1 0.50 S/CO (0.00-0.99); Hepatitis B Surface Antigen Negative (Negative); ~Hepatitis B Surface Antibody NONREACTIVE (Nonreactive)
== END 2025-06-17 13:24 | disposition home or self-care (01) ==
LOC: HO.HHCL 13:23
PROVIDERS: PCP Nurse Practitioner Primary Care; Visit Provider Nurse Practitioner Primary Care
DX: Z11.59 Encounter for screening for other viral diseases (principal); E11.59 Type 2 diabetes mellitus with other circulatory complications; I15.2 Hypertension secondary to endocrine disorders; Z95.1 Presence of aortocoronary bypass graft
CPT/HCPCS: 36415; 80053; 80061; 82043; 82570; 82607; 83036; 84443; 85025; 86704; 86706; 87340

== ENCOUNTER 2025-07-25 14:38 | Emergency (ER) | payer MEDICAID, SELFPAY ==
[2025-07-25 14:56] VITALS: BP 136/58; PULSE 65; RESP 16; TEMP 36.2; O2SAT 98; BMI 26.2
--- NOTE | 2025-07-25 15:01 | ECG_ITS ---
Test Reason : bp Blood Pressure : */* mmHG Vent. Rate : 58 BPM Atrial Rate : 58 BPM P-R Int : 158 ms QRS Dur : 80 ms QT Int : 394 ms P-R-T Axes : 49 -40 96 degrees QTcB Int : 386 ms Sinus bradycardia Left axis deviation Left ventricular hypertrophy with repolarization abnormality ( R in aVL , Jenks product , Romhilt-Strong ) Abnormal ECG When compared with ECG of 24-Jul-2023 10:16, Criteria for Septal infarct are no longer Present T wave inversion now evident in Lateral leads Referred By: Jeff Gomez Electronically Signed By: NGA SINGLETON
--- NOTE | 2025-07-25 15:02 | ED.GENADULT ---
HPI - General Adult General Chief complaint: Recheck/Abnormal Lab/Rx Stated complaint: bp issues Time Seen by Provider: 07/25/25 17:14 History of Present Illness ED Provider: Bernadette LINDQUIST narrative: The patient is a 65-year-old male with type 2 diabetes. He takes Lantus insulin and metformin. He had a regularly scheduled appointment at the [facility] today. At the [facility] he was told that he has blood pressure was low and that they felt that he should come to the emergency department. Despite his low blood pressure he felt well enough to drive himself to the hospital. He has had no headache, no chest pain, no abdominal pain, no nausea, no vomiting. He denies being noncompliant with his medications. He does not feel ill. The patient had lab testing done before I saw the patient indicating his blood sugar was 395. When I told him that his blood sugar was high he responded ?my blood sugar is always high. ? Related Data Home Medications ?Medication ?Instructions ?Recorded ?Confirmed atorvastatin 40 mg tablet 40 mg PO DAILY cholesterol 09/20/22 10/16/23 cholecalciferol (vitamin D3) 25 25 mcg PO QAM 09/20/22 10/16/23 mcg (1,000 unit) capsule (Vitamin D3) insulin degludec 100 unit/mL (3 36 unit subcut DAILY 09/20/22 10/16/23 mL) subcutaneous pen (Tresiba FlexTouch U-100 insulin) aspirin 81 mg tablet,delayed 81 mg PO DAILY 07/19/23 10/16/23 release lisinopril 10 mg tablet 10 mg PO QAM 07/19/23 10/16/23 metformin 500 mg tablet 1,000 mg PO BID 07/19/23 10/16/23 omeprazole 20 mg capsule,delayed 20 mg PO QAM 07/19/23 10/16/23 release dulaglutide 1.5 mg/0.5 mL 1.5 mg subcut QWEEK 10/16/23 subcutaneous pen [facility] Allergies Allergy/AdvReac Type Severity Reaction Status Date / Time No Known Allergies (No Known Allergy Verified 07/25/25 14:59 Allergies*) Review of Systems Review of Systems: Yes all other systems are reviewed and are negative PMFSH Past Medical History Medical History (Updated 07/26/25 @ 00:01 by Background Daemsharon) Mild ascending aorta dilation History of ETOH abuse Bilateral carotid artery stenosis Hypertension Hyperlipidemia Diabetes Nicotine dependence, cigarettes, uncomplicated GERD (gastroesophageal reflux disease) Surgical History (Updated 01/09/24 @ 10:04 by Jody Rowe PA-C) History of bilateral cataract extraction Family History Family History Father Stroke (cerebrum) Mother Diabetes Social History Social History Patient Tobacco Use Status: Current everyday Tobacco user Tobacco use type: Cigarette Cigarettes Per Day: 9 Smoked in Last 30 Days: No Advance Directives: No Advance Directives Information Provided: Yes Physical Exam ED Vital Signs: Vital Signs - 24 hr 07/25/25 14:56 07/25/25 18:07 07/25/25 19:04 Temperature 97.2 F 98.6 F 98.2 F Pulse Rate 65 78 61 Respiratory Rate 16 18 16 Blood Pressure 136/58 L 124/78 135/69 Pulse Oximetry 98 97 96 Oxygen Delivery Method Room Air Room Air Room Air 07/25/25 19:06 Temperature 98.2 F Pulse Rate 61 Respiratory Rate 16 Blood Pressure 135/69 Pulse Oximetry 96 Oxygen Delivery Method Room Air BMI result Body Mass Index 26.2 Const Other: The patient is a slightly frail looking 65-year-old who is awake and alert and does not seem in any acute distress. Orientation/consciousness: patient oriented x3 HENMT Other: The face is symmetrical. ?Mucous membranes moist. Eyes Other: Pupils are round equal, conjunctivae are clear, extraocular movements intact Neck Neck: Yes normal visual inspection, Yes full ROM and Yes no JVD Resp Effort & Inspection: normal respiratory effort Auscultation: clear to auscultation bilaterally Cardio Rate: regular rate Rhythm: regular rhythm Heart sounds: S1 normal heart sound present and S2 normal heart sound present GI Other: The abdomen is soft and nontender Skin Other: The skin is dry and unremarkable Neuro General: patient oriented x3, tone normal, moves all extremities, no focal motor deficits and CN's II-XI intact bilaterally Extrem Other: There is no calf swelling or tenderness. No asymmetry. No peripheral edema. Course Course Course Narrative: RME: 64-year-old male sent from [facility] for blood pressure issues. Patient does not recall if with high blood pressure. But patient was informed to drink water and take cookies. Patient is asymptomatic. Patient was sent to the ED Medications Administered Discontinued Medications Generic Name Dose Route Start Last Admin Trade Name Kenna PRN Reason Stop Dose Admin Sodium Chloride 1,000 mls @ 999 mls/hr 07/25/25 17:45 07/25/25 18:41 Ns IV 07/25/25 18:45 Infused .Q1H1M JADON Infusion Medical Decision Making Medical Decision Making [facility] Narrative: The patient is a very pleasant 65-year-old male with a history of type 2 diabetes who has a previously scheduled appointment at the [facility]. At the appointment who was found to have low blood pressure and so he was advised to come to the emergency room. He drove himself here. Here the patient has no specific complaints and has a benign exam. No chest pain. No shortness of breath. No abdominal pain. No nausea or vomiting. The patient is evaluation in the emergency room reveals an unchanged EKG, a CBC that shows a mild white count elevation, and a BMP that shows some worsening renal function. his creatinine today is 1.8. One month ago it was 1.2. Perhaps the patient is dehydrated, possibly this could be from poor glucose control. He was given IV fluids. His blood sugar improved slightly. He was eager to go home. He says he has not feel unwell. He will therefore be discharged to make sure that he focuses well on his compliance with his diabetic regimen, to increase his fluid intake, and to follow up with his regular doctor next week. He should return to the emergency room if he feels worse. Lab Data 07/25/25 15:20 07/25/25 15:20 Labs: Lab Results 07/25/25 07/25/25 07/25/25 Range/Units 15:20 17:40 18:37 WBC 12.1 H (4.8-10.8) X10*3/uL RBC 5.29 (4.60-5.80) X10*6/uL Hgb 13.8 L (14.0-18.0) g/dl Hct 42.6 (42.0-52.0) % MCV 80.5 (80.0-98.0) fL MCH 26.1 L (27.0-33.0) pg MCHC 32.4 (31.0-36.0) g/dl RDW 15.0 (11.0-16.0) % Plt Count 168 (160-400) X10*3/uL MPV 10.9 (9.4-12.4) fL Immature Gran % (Auto) 0.6 H (0.0-0.4) % Neut % (Auto) 75.8 H (45-73) % Lymph % (Auto) 13.9 L (20-40) % [place] % (Auto) 5.9 (2-11) % Eos % (Auto) 3.1 (0-4) % Baso % (Auto) 0.7 (0-2) % Lymph # (Auto) 1.7 (1.2-4.9) X10*3/uL [place] # (Auto) 0.7 (0.1-1.2) X10*3/uL Eos # (Auto) 0.4 (0.0-0.4) X10*3/uL Baso # (Auto) 0.1 (0.0-0.2) X10*3/uL Abs Immat Gran (auto) 0.07 H (0.00-0.03) X10*3/uL Absolute Neuts (auto) 9.2 H (2.0-8.3) x10*3/uL Absolute Nucleated RBC 0.000 (0.0-0.012) X10*3/uL Nucleated RBC % (auto) 0.0 (0.0-0.2) /100WBC Sodium 132 L (135-145) mmol/L Potassium 5.0 (3.3-5.1) mmol/L Chloride 100 (96-108) mmol/L Carbon Dioxide 25 (22-29) mmol/L Anion Gap 12 (12-20) BUN 35 H (9-16) mg/dL Creatinine 1.84 H (0.5-1.4) mg/dL Estim Creat Clear Calc 39.7 Estimated GFR 37 POC Glucose 342 H (60-115) mg/dL Random Glucose 395 H* (60-115) mg/dL Calcium 9.4 (8.4-10.2) mg/dL Total Bilirubin 0.4 (0.0-1.0) mg/dL AST 27 (5-37) U/L ALT 28 (0-40) U/L Alkaline Phosphatase 111 (39-117) U/L Total Creatine Kinase 102 (38-174) U/L Troponin I High Sens 7.2 D 9.3 (<3.5-35.0) ng/L Total Protein 8.1 H (6.5-8.0) g/dL Albumin 4.3 (3.5-5.0) g/dL Independent Interpretation I performed an independent interpretation of an: EKG Interpretation: EKG at 15:14 shows sinus bradycardia 58 beats per minute. There is LVH and a left axis deviation. No remarkable changes from previous. Discharge Plan Discharge Clinical Impression: Dehydration, Hyperglycemia, Type 2 diabetes mellitus Patient Disposition: Home, Self-Care Additional Instructions: Please make sure that you take all of your regular medications. Drink lot of fluids to make sure you stay well hydrated. Do not drink fluids that have extra sugar. Please contact your regular doctor on Monday for a follow up appointment to discuss your fluid status and your diabetes care. Return to the emergency room if you feel significantly worse. Prescriptions: No Action Trulicity 1.5 mg/0.5 mL pen injector 1.5 mg subcut QWEEK metformin 500 mg tablet 1,000 mg PO BID lisinopril 10 mg tablet 10 mg PO QAM omeprazole 20 mg capsule,delayed release(DR/EC) 20 mg PO QAM aspirin 81 mg tablet,delayed release (DR/EC) 81 mg PO DAILY atorvastatin 40 mg tablet 40 mg PO DAILY insulin degludec [Tresiba FlexTouch U-100] 100 unit/mL (3 mL) insulin pen 36 unit subcut DAILY cholecalciferol (vitamin D3) [Vitamin D3] 25 mcg (1,000 unit) capsule 25 mcg PO QAM Referrals: Shanda Joseph INTEGRATIVE MEDICINE PHYSICIAN [Primary Care Provider, Internal Medicine] Interventions: ED Discharge Assessment Last Done: 07/25/25 19:06 Discharge Date/Time: 07/25/25 19:07 Print Language: Indonesian
[2025-07-25 15:25] LABS: MANUAL DIFF FLAG NO
[2025-07-25 15:27] LABS: Hematocrit 42.6 % (42.0-52.0); Hemoglobin 13.8 g/dl (14.0-18.0); Imm Gran Abs Auto 0.07 X10*3/uL (0.00-0.03); Imm Gran Pct Auto 0.6 % (0.0-0.4); Lymphocytes Absolute Auto 1.7 X10*3/uL (1.2-4.9); Mean Corpuscular HGB Conc 32.4 g/dl (31.0-36.0); Mean Corpuscular Hemoglobin 26.1 pg (27.0-33.0); Mean Corpuscular Volume 80.5 fL (80.0-98.0); NRBC Abs Auto 0.000 X10*3/uL (0.0-0.012); NRBC Pct Auto 0.0 /100WBC (0.0-0.2); Platelet Count 168 X10*3/uL (160-400); Red Blood Count 5.29 X10*6/uL (4.60-5.80); White Blood Count 12.1 X10*3/uL (4.8-10.8)
[2025-07-25 15:45] LABS: Alanine Aminotransferase 28 U/L (0-40); Albumin Level 4.3 g/dL (3.5-5.0); Alkaline Phosphatase 111 U/L (39-117); Anion Gap 12 (12-20); Aspartate Amino Transferase 27 U/L (5-37); Blood Urea Nitrogen 35 mg/dL (9-16); Calcium 9.4 mg/dL (8.4-10.2); Carbon Dioxide 25 mmol/L (22-29); Chloride 100 mmol/L (96-108); Creatinine Clr Calc Pharmacy 39.7; Estimated Glomerular Filt Rate 37; Potassium 5.0 mmol/L (3.3-5.1); Sodium 132 mmol/L (135-145); Total Protein 8.1 g/dL (6.5-8.0)
[2025-07-25 15:50] LABS: Troponin-I High Sensitivity 7.2 ng/L (<3.5-35.0)
--- OUTSIDE RECORDS SUMMARY | 2025-07-25 17:22 | XMS_ITS | Encounter Summary ---
Author Organization [employer] Address [address] [place] [address] Care Team Providers Care Optometric Aide Name Role Phone Shanda Joseph Primary Care Provider [phone] Encounter Details Date Type Department Care Team (Late st Contact Info) Description 05/20/2025 Telephone [facility] MEDICINE [address] [place], [place] [phone] Shanda Joseph ANP [address] [place], [place] [phone] Social History Tobacco Use Types Packs/Day Years Used Date Smoking Tobacco: Every Day Cigarettes Passive Smoke Exposure: Current Smokeless Tobacco: Never Alcohol Use Standard Drinks/Week Comments Not Currently 0 (1 standard drink = 0.6 oz pur e alcohol) Housing Stability Answer Date Recorded What is your housing situation today? I do not have housing (Staying with others, in a hotel, in a [place], living outside on the street, on a [...] t he electric, gas, oil or water [employer] threatened to shut off services in your [...] Care Team (Late st Contact Info) Description 09/12/2025 11:30 AM EST Office Visit [facility] OPTOMETRY [address] [place] [address] Oneyda Merrill, YUE [address] [place] [address] documented as of this encounter Visit Diagnoses Not on filedocumented in this encounter Care Teams Optometric Aide Relationship Specialty Start Date End Date Shanda Joseph ANP [address] [place] [address] PCP - General Family Medicine 02/22/22 documented as of this encounter
--- OUTSIDE RECORDS SUMMARY | 2025-07-25 17:22 | XMS_ITS | Encounter Summary ---
Author Organization [employer] Address [address] [place] [address] Care Team Providers Care Manufactured Buildings Supervisor Name Role Phone Shanda Joseph Primary Care Provider Encounter Details Date Type Department Care Team ([facility] st Contact Info) Description 06/17/2025 Results Follow-Up [facility] MEDICINE [address] [place], [place] [phone] Shanda Joseph ANP [address] [place], [place] [phone] CBC auto differential, Hemoglobin A1c Social History Tobacco Use Types Packs/Day Years [...] with others, in a hotel, in a correction, living outside on the street, on a [...] AM EDT documented as of this encounter Miscellaneous Notes * Result Encounter Note - MONSTER Black - 06/17/2025 5:03 PM EDT A1c much improved. multiple labs pending at time of review documented in this encounter Plan of Treatment Upcoming Encounters Date Type Department Care Team (Late st Contact Info) Description 09/12/2025 11:30 AM EST Office Visit [facility] OPTOMETRY [address] [place] [address] Garfield, Oneyda, OD [address] [place] [address] documented as of this encounter Visit Diagnoses Not on filedocumented in this encounter Additional Health Concerns Assessment Noted Time PHQ-9 Depression Total Score: 3 05/28/20 25 2:58 PM EDT documented as of this encounter Care Teams Manufactured Buildings Supervisor Relationship Specialty Start Date End Date Shanda Joseph ANP [address] [place] [address] PCP - General Family Medicine 02/22/22 documented as of this encounter
--- OUTSIDE RECORDS SUMMARY | 2025-07-25 17:22 | XMS_ITS | Encounter Summary ---
Author Organization [employer] Address [address] [place] [address] Care Team Providers Care Cotton Acreage Measurer Name Role Phone Shanda Joseph MONSTER Primary Care Provider [phone] Encounter Details Date Type Department Care Team (Late st Contact Info) Description 07/25/2025 Orders Only GENERIC EXTERNAL DATA DEPARTMENT Provider, Generic External Data Social History Tobacco Use Types Packs/Day Years [...] with others, in a hotel, in a care home, living outside on the street, on [...] t he electric, gas, oil or water [employer] threatened to shut off services in your [...] Description 09/12/2025 11:30 AM EST Office Visit [facility] OPTOMETRY [address] [place] [address] Garfield, Megan, OD [address] [place] [address] documented as of this encounter Goals Goal Patient Goal Type Associated Problems Recent Progress Patient-Stated? Author Help patients manage their type 2 diabetes Care Plan Help patients manage their type 2 diabetes No Maicols-Sheppard , Kim, PharmD Weekly blood pressure task Care Plan Weekly blood pressure task No Piers-Sheppard , Kim, PharmD Help patients manage their type 2 diabetes Care Plan Help patients manage their type 2 diabetes No Piers-Sheppard , Kim, PharmD Patient has diabetic eye disease Care Plan Patient has diabetic eye disease No Piers-Sheppard , Kim, PharmD Help patients manage their type 2 diabetes Care Plan Help patients manage their type 2 diabetes No Piers-Sheppard , Kim, PharmD Patient has chronic kidney disease Care Plan Patient has chronic kidney disease No Piers-Sheppard , Kim, PharmD Weekly blood pressure task Care Plan Weekly blood pressure task No Piers-Sheppard , Kim, PharmD Weekly blood pressure task Care Plan Weekly blood pressure task No Piers-Sheppard , Kim, PharmD Patient has diabetic eye disease Care Plan Patient has diabetic eye disease No Piers-Sheppard , Kim, PharmD Patient has diabetic eye disease Care Plan Patient has diabetic eye disease No Piers-Sheppard , Kim, PharmD Patient has chronic kidney disease Care Plan Patient has chronic kidney disease No Kim Mcrae, PharmD Patient has chronic kidney disease Care Plan Patient has chronic kidney disease No Kim Mcrae PharmD documented as of this encounter Procedures Procedure Name Priority Date/Time Associated Diagnosis Comments HIGH SENSITIVITY TROPONIN I Routine 07/25/2025 3:20 PM EST CBC WITH AUTO DIFFERENTIAL Routine 07/25/2025 3:20 PM EST CREATINE KINASE, TOTAL Routine 3:20 PM EST COMPREHENSIVE METABOLIC PANEL Routine 07/25/2025 3:20 PM EST documented in this encounter Results * High Sensitivity Troponin I (07/25/2025 3:20 PM EST) [facility] TROPONIN I HIGH SENSITIVITY 7.2 <3.5 - 35.0 ng/L [facility] Comment:The [place] high sens itivity Troponin-I results should beused in conjunction with other diagnostic information suchas ECG, clinical observations and information, and patientsymptoms to aid in the diagnosis of [place]. 07/25/2025 3:20 PM EST 07/25/2025 3:24 PM EST us Generic External Data Provider LAB BLOOD ORDERAB LES Final Result Performing Organization Address [facility]/ZIP Co de Phone Number [facility] [address] [place] [phone] * Creatine Kinase, Total (07/25/2025 3:20 PM EST) Creatine Kinase Total 102 38 - 174 U/L [facility] 07/25/2025 3:20 PM EST 07/25/2025 3:24 PM EST us Generic External Data Provider LAB BLOOD ORDERAB LES Final Result Performing Organization Address City/[facility]/ZIP Co de Phone Number [facility] [address] [place] [phone] * (ABNORMAL) Comprehensive Metabolic Panel (07/25/2025 3:20 PM EST) Sodium 132(L) 135 - 145 mmol/L [facility] Potassium 5.0 3.3 - 5.1 mmol/L [facility] Chloride 100 96 - 108 mmol/L [facility] Carbon Dioxide 25 22 - 29 mmol/L [facility] Anion Gap 12 12 - 20 [facility] Urea Nitrogen (BUN) 35(H) 9 - 16 mg/dL [facility] Creatinine, Serum 1.84(H) 0.5 - 1.4 mg/dL [facility] Creatinine Clr Calc Pharmacy 39.7 [facility] Comment:eGFR (calculated fro m the MDRD study equation) and eCrCl(calculated from the Cockcroft-Gault equation) are based ondifferent parameters and may not yield comparable results.If eCrCl result is absurd, please check patient'sheight/weight. Estimated Glomerular Filt Rate 37 [facility] Comment:Chronic Kidney Disea se: Estimated GFR < 60 mL/min/1.03m8Ilalwc Kidney Disease: Estimated GFR < 15 mL/min/1.73m2 Glucose 395(HH) 60 - 115 mg/dL [facility] Comment:Critical value for t est(s):GLUR Results called to and readback by: SUSHMA Person calling: JOSE EDUARDO Date:07/25/25Time:15:44 Calcium 9.4 8.4 - 10.2 mg/dL [facility] Bilirubin, Total 0.4 0.0 - 1.0 mg/dL [facility] Aspartate Amino Transferase 27 5 - 37 U/L [facility] Alanine Aminotransferase 28 0 - 40 U/L [facility] Total Protein 8.1(H) 6.5 - 8.0 g/dL [facility] Albumin Level 4.3 3.5 - 5.0 g/dL [facility] Alkaline Phosphatase 111 39 - 117 U/L [facility] 07/25/2025 3:20 PM EST 07/25/2025 3:24 PM EST us Generic External Data Provider LAB BLOOD ORDERAB LES Final Result [facility] [address] [place] [phone] * (ABNORMAL) CBC auto differential (07/25/2025 3:20 PM EST) White Blood Count 12.1(H) 4.8 - 10.8 X10*3/uL [facility] Red Blood Count 5.29 4.60 - 5.80 X10*6/uL [facility] Hemoglobin 13.8(L) 14.0 - 18.0 g/dl [facility] Hematocrit 42.6 42.0 - 52.0 % [facility] Mean Corpuscular Volume 80.5 80.0 - 98.0 fL [facility] Mean Corpuscular Hemoglobin 26.1(L) 27.0 - 33.0 pg [facility] Mean Corpuscular HGB Conc 32.4 31.0 - 36.0 g/dl [facility] Red Cell Distribution Width 15.0 11.0 - 16.0 % [facility] Platelet Count 168 160 - 400 X10*3/uL [facility] Mean Platelet Volume 10.9 9.4 - 12.4 fL [facility] Neutrophils Percent Auto 75.8(H) 45 - 73 % [facility] Imm Gran Pct Auto 0.6(H) 0.0 - 0.4 % [facility] Lymphocytes Percent Auto 13.9(L) 20 - 40 % [facility] Monocytes Percent Auto 5.9 2 - 11 % [facility] Eosinophils Percent Auto 3.1 0 - 4 % [facility] Basophils Percent Auto 0.7 0 - 2 % [facility] NRBC Pct Auto 0.0 0.0 - 0.2 /100WBC [facility] Neutrophils Absolute Auto 9.2(H) 2.0 - 8.3 x10*3/uL [facility] Imm Gran Abs Auto 0.07(H) 0.00 - 0.03 X10*3/uL [facility] Lymphocytes Absolute Auto 1.7 1.2 - 4.9 X10*3/uL [facility] Monocytes Absolute Auto 0.7 0.1 - 1.2 X10*3/uL [facility] Eosinophils Absolute Auto 0.4 0.0 - 0.4 X10*3/uL [facility] Basophils Absolute Auto 0.1 0.0 - 0.2 X10*3/uL [facility] NRBC Abs Auto 0.000 0.0 - 0.012 X10*3/uL [facility] 07/25/2025 3:20 PM EST 07/25/2025 3:24 PM EST us Generic External Data Provider LAB BLOOD ORDERAB LES Final Result Performing Organization Address City/State/[facility] Co de Phone Number [facility] [address] [place] [address] [phone] documented in this encounter Visit Diagnoses Not on filedocumented in this encounter Additional Health Concerns Active Problems Noted Date Diagnosed Date Help patients manage their type 2 diabetes 07/25 Weekly blood pressure task 07/25/2025 Help patients manage their type 2 diabetes 07/25 Patient has diabetic eye disease 07/25/2025 Help patients manage their type 2 diabetes 07/25 Patient has chronic kidney disease 07/25/2025 Weekly blood pressure task 07/25/2025 Weekly blood pressure task 07/25/2025 Patient has diabetic eye disease 07/25/2025 Patient has diabetic eye disease 07/25/2025 Patient has chronic kidney disease 07/25/2025 Patient has chronic kidney disease 07/25/2025 Assessment Noted Time PHQ-9 Depression Total Score: 3 05/28/20 25 2:58 PM EDT documented as of this encounter Care Teams [employer] [place] Measurer Relationship Specialty Start Date End Date Shanda Joseph ANP [address] [place] [phone] PCP - General Family Medicine 02/22/22 documented as of this encounter
--- OUTSIDE RECORDS SUMMARY | 2025-07-25 17:22 | XMS_ITS | Patient Health Record ---
Author Organization [facility] Address [address] [place] [address] Care Team Providers Care Preparation Supervisor Canning Name Role Phone PB JOHNSON N.P. Primary Care Provider [place] [phone] Allergies No Known Allergies Reason For Referral No Information Medications Medication SIG (Take, Route, Frequency, Duration) Notes Start Date End Date Status metFORMIN HCl 500 MG Tablet TAKE 2 TABLETS BY MOUTH TWICE DAILY IN THE MORNING AND EVENING WITH MEALS Oral; Duration: 90 Active Atorvastatin Calcium 40 MG Tablet TAKE 1 TABLET BY MOUTH EVERY DAY (for cholesterol) Oral; Duration: 90 Active Vitamin D High Potency 25 MCG (1000 UT) Capsule TAKE 1 CAPSULE BY MOUTH DAILY IN THE MORNING Diagnosis Unavailable Oral; Duration: 90 Active Aspirin Low Dose 81 MG Tablet Delayed Release TAKE 1 TABLET BY MOUTH EVERY DAY Oral; Duration: 90 Active MiraLax (colon prep) 17 GM/SCOOP Powder 1 238Gm bottle mixed with Gatorade or Crystal Light Orally begin at 5:00 p.m. the day before the procedure; Duration: 1 day Please put instructions in Croatian. Thanks very much 04/30/2023 Active Dulcolax (colon prep) 5 MG Tablet Delayed Release take at 3:00 p.m and 7:00p.m. Orally two tablets twice a day for one day; Duration: 1 day Please put instructions in Croatian. Thanks very much 04/30/2023 Active MiraLax (colon prep) 17 GM/SCOOP Powder 1 238 Gm bottle mixed with Gatorade or Crystal Light Orally begin at 5:00 p.m. the day before the procedure; Duration: 1 day 08/03/2023 Active Dulcolax (colon prep) 5 MG Tablet Delayed Release take at 3:00 p.m and 7:00p.m. Orally two tablets twice a day for one day; Duration: 1 day 08/03/2023 Active Omeprazole 20 MG Capsule Delayed Release 1 capsule 30 minutes before morning meal Orally Once a day Active Tresiba FlexTouch 100 UNIT/ML Solution Pen-injector INJECT 32 UNITS SUBCUTANEOUSLY DAILY Diagnosis Unavailable Subcutaneous; Duration: 45 Active Lisinopril 10 MG Tablet TAKE 1 TABLET BY MOUTH EVERY MORNING Diagnosis Unavailable Oral; Duration: 90 Active Social History Tobacco Use: Social History Observation Description Date Details (start date - stop date) Current Smoker NA - NA Social History Drugs/Alcohol: Social Info Question Answer Notes Alcohol Screen Did you have a drink containing alcohol in the past year? No Points 0 Interpretation Negative Tobacco Use: Social Info Question Answer Notes Tobacco Use/Smoking Patient is a current smoker How often do you smoke cigarettes? every day How many cigarettes a day do you smoke? 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/2022, Smoker Problems Problem Type SNOMED Code ICD Code Onset Dates Problem Status W/U Status Risk Notes Problem Colon cancer screening (001207763) Colon cancer screening (Z12.11) Active confirmed Problem Weight loss (196966700) Weight loss (R63.4) Active confirmed Problem Gastroesophageal reflux disease (641435702) Gastroesophageal reflux disease, unspecified whether esophagitis present (K21.9) Active confirmed Plan Of Treatment Future Test Test Name Order Date UPPER GI ENDOSCOPY 04/28/2023 COLONOSCOPY 04/28/2023 Insurance Providers Payer Name Payer Address Payer Phone Subscriber Number Group Number Insured Name Patient Relationship to Insured Coverage Start Date Coverage End Date MEDICAID OF [facility] [address] [place] [phone] [id number] ISABEL SHELLEY Self - patient is the insured Medical (General) History Medical History History ICD Code DM HTN GERD Denies PA,CVA,Lung disease,renal disease Hyperlipidemia EtOH abuse-reports sobriety since 09/2022 as of the 04/2023 OV Surgical History Surgery Date(Month/Year) Cataract removal bilaterally
--- OUTSIDE RECORDS SUMMARY | 2025-07-25 17:22 | XMS_ITS | Clinical Summary ---
Author Organization [employer] Address [address] [facility] [address] [place] [address] Care Team Providers Care Debarker Operator Name Role Phone Shanda Joseph MONSTER Primary Care Provider Allergies No known active allergies Medications FREESTYLE LITE test stripIndication s:Type 2 diabetes mellitus with other circulatory complication, with long-term current use of insulin ([facility]) TEST BLOOD SUGAR TWICE DAILY 100 each 11 023 Active TRUEplus Lancets 33G miscIndications :Type 2 diabetes mellitus with other circulatory complication, with long-term current use of insulin ([facility]) Test blood sugar twice daily and more as needed 100 each 11 023 Active aspirin 81 MG EC tabletIndicatio ns:Cardiovascul ar event risk Take 1 tablet (81 mg) by mouth in the morning. 90 tablet 024 Active pantoprazole (ProtoNix) 40 MG EC tablet Take 1 tablet by mouth Once per day. Do not crush, chew, or split. Active ferrous sulfate 325 (65 Fe) MG EC tablet Take 1 tablet by mouth every other day. Do not crush, chew, or split. Active atorvastatin (Lipitor) 80 MG tablet Take [...] day. Do not crush or chew. Active empagliflozin (Jardiance) 10 MGIndications:H ypertension associated with diabetes (HCC) Take 1 tablet (10 mg) by mouth Once per day. 30 tablet 11 07/22/20 25 11:44 AM EST 025 2025 Active metFORMIN (Glucophage) 500 MG tabletIndicatio ns:Hypertension associated with diabetes (HCC) Take 1 tablet (500 mg) by mouth with breakfast. 30 tablet 2 Active senna-docusate sodium (Senokot-S) 8.6-50 MG tabletIndicatio ns:Constipation , unspecified constipation type Take 1 tablet by mouth Once per day. 60 tablet 2 Active Continuous Glucose Senior Application Software Engineer (FreeStyle Kiana 3 [place]) deviceIndicatio ns:Hypertension associated with diabetes (HCC) 1 each Once per day. Use as directed for CGM 1 each Active Continuous Glucose Sensor (FreeStyle Kiana 3 Plus Sensor) miscIndications :Hypertension associated with diabetes (HCC) 1 each every 15 days. Apply 1 every 15 days as directed for CGM 2 each Active glucose blood (FreeStyle Precision Johnny Test) test stripIndication s:Hypertension associated with diabetes (HCC) Use to test blood sugar 3 times daily in case of CGM failure or extremes of BG 100 each 11 025 2025 Active Alcohol Swabs (Alcohol Pads) 70 % padsIndications :Type 2 diabetes mellitus with hyperglycemia, with long-term current use of insulin ([facility]) Use as directed 100 each 11 Active insulin glargine (Lantus SoloStar) 100 UNIT/ML penIndications: Type 2 diabetes mellitus with hyperglycemia, with long-term current use of insulin ([facility]) Inject 14 Units under the skin at bedtime. 15 mL 3 Active insulin lispro (HumaLOG KWIKPEN) 100 UNIT/ML injectionIndica tions:Type 2 diabetes mellitus with hyperglycemia, with long-term current use of insulin ([facility]) Inject 4 Units under the skin before evening meal. 15 mL 1 025 Active Sure Comfort Pen Divernon 31G X 5 MM miscIndications :Type 2 diabetes mellitus with hyperglycemia, with long-term current use of insulin ([facility]) USE WITH INSULIN ADMINISTRATION TWICE DAILY 100 each 3 025 Active Tirzepatide (Mounjaro) 2.5 MG/0.5ML solution auto-injectorIn dications:Type 2 diabetes mellitus with hyperglycemia, with long-term current use of insulin (HCC) Inject 2.5 mg under the skin every 7 (seven) days. 2 mL 025 Active Sure Comfort Pen Divernon 31G X 5 MM miscIndications :Type 2 diabetes mellitus with hyperglycemia, with long-term current use of insulin (HCC) USE ONCE DAILY WITH INSULIN 100 each 3 023 2024 Discontinued(R eorder (will not trigger notification to Pharmacy)) semaglutide (Ozempic, 1 MG/DOSE,) 4 MG/3ML solution pen-injector Inject 1 mg under the skin 1 (one) time per week. 2024 Discontinued(M ed list cleanup (will not trigger notification to Pharmacy)) insulin glargine (Lantus SoloStar) 100 UNIT/ML pen Inject 10 Units under the skin at bedtime. 2024 Discontinued(R eorder (will not trigger notification to Pharmacy)) insulin glargine (Lantus SoloStar) 100 UNIT/ML penIndications: Type 2 diabetes mellitus with hyperglycemia, with long-term current use of insulin (HCC) Inject 10 Units under the skin at bedtime. 15 mL 3 025 2024 Discontinued(R eorder (will not trigger notification to Pharmacy)) Sure Comfort Pen Divernon 31G X 5 MM miscIndications :Type 2 diabetes mellitus with hyperglycemia, with long-term current use of insulin (HCC) USE ONCE DAILY WITH INSULIN 100 each 3 025 2024 Discontinued(R eorder (will not trigger notification to Pharmacy)) Active Problems Problem Noted Date Diagnosed Date [...] Encounters Date Type Department Care Team Description 07/25/2025 Orders Only GENERIC EXTERNAL DATA DEPARTMENT Provider, Generic External Data 07/25/2025 Travel 07/04/2025 Orders Only [facility] [place] [address] Abilio Barajas MD Type 2 diabetes mellitus with hyperlipidemia (HCC) (Primary Dx) 07/04/2025 Telephone [facility] [place] [place] [address] Kim Mcrae PharmD 07/04/2025 Refill [facility] [place] [place] [address] Kim Mcrae PharmD Type 2 diabetes mellitus with hyperglycemia, with long-term current use of insulin (HCC) 07/04/2025 Travel 06/30/2025 Outside Procedure [facility] [address] [place] [address] Wilfred Merrilln, OD Presbyopia (Primary Dx) 06/27/[address] [address] Shanda Joseph ANP chart prep 06/26/2025 3:30 PM EDT Office Visit [facility] [address] [place] [address] Wilfred Merrilln, OD Myopia of right eye (Primary Dx) 06/26/2025 3:00 PM EDT Clinical Support [address] [address] Isha Fallon RN Type 2 diabetes mellitus with hyperlipidemia (HCC) 06/26/2025 Travel 06/17/2025 Results Follow-Up [address] [address] Shanda Joseph ANP CBC auto differential, Hemoglobin A1c 06/05/[address] [address] Isha Fallon RN CGM Initial Appointment 05/30/2025 10:00 AM EDT Office Visit [facility] [address] [place] [address] Wilfred Merrilln, OD 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 with type 2 diabetes mellitus (CMS/HCC) (Primary Dx); 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; Hollenhorst plaque, right eye; Pseudophakia of both eyes; 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; Presbyopia 05/30/2025 Travel 05/29/[address] [address] Perla Mendieta RN Prior Auth Prescription 05/28/2025 2:30 PM EDT Office Visit [address] [address] Shanda Joseph ANP 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 (Primary Dx); Status post coronary artery bypass graft; Hospital discharge follow-up; Encounter for immunization; Atherosclerosis of both carotid arteries; Hypertension associated with diabetes (CMS/HCC); Smoker; Constipation, unspecified constipation type; Illiterate; Need for hepatitis B screening test 05/28/[address] [address] Kim Mcrae PharmD 05/28/2025 Travel 05/27/[address] [address] Shanda Joseph ANP chart prep 05/20/2025 Patient Outreach [address] [address] Shanda Joseph ANP Transition Of Care (Tcm) (HDF- Scheduled ) 05/20/[address] [address] Shanda Joseph ANP from Last 3 Months Immunizations Immunization Administration Dates Next Due Hep A, Adult 01/15/2025,03/14/2024 Influenza injectable quadriv alent preservative free 06/23/2023,05/26/2022,08/24/2021 Influenza, IIV3, injectable 08/19/2024 Influenza, seasonal, injecta ble, preservative free 05/28/2025 Moderna Covid-19 Vaccine 6+ Bivalent 07/15/2022 Pfizer Covid-19 Vaccine 12+ 07/07/2025,1 10/27/2020,01/24/2021,2020 Pneumococcal Conjugate PCV 20 06/23/2023 Tdap 02/08/2022 [...] with others, in a hotel, in a custodial, living outside on the street, on a [...] Sign Reading Time Taken Comments Blood Pressure 78/50 07/25/2025 2:12 PM EST Pulse 65 07/25/2025 2:09 PM EST Temperature 36.7 C (98.1 F) 05/28/2025 2:50 [...] Description 09/12/2025 11:30 AM EST Office Visit [facility] [address] [place] [address] Garfield, Oneyda, OD [address] [place] [address] Health Maintenance Due Date Last Done Comments CT Colonography 1962 Colonoscopy 1962 Colorectal Cancer Screening 1962 FIT DNA/Cologuard 1962 FIT 1962 FOBT 1962 Sigmoidoscopy 1962 Diabetes: Foot Exam 01/12/1972 RSV Patients and Patients Aged 60 years or older (1 - Risk 50-74 years 1-dose series) 01/12/2012 Diabetes: Hemoglobin A1C 12/16/2025 025, 12/05/2023, 09/28/2023, Additional history exists Alcohol/Substance Use Screening 05/28/2026 05/28/2025 Depression Screening 05/28/2026 05/28/2025, 05/28/20 25 Disability Screening 05/28/2026 05/28/2025 SDOH Screening 05/28/2026 05/28/2025 Eye Exam 05/30/2026 05/30/2025, 05/06, 05/30/2025, Additional history exists Tobacco Screening 06/06/2026 06/06/2025 Diabetes: Urine Protein Screening 06/17/2026 06/17/2025, 02/08/2022, 02/08/2022 Lipid Panel 06/17/2026 06/17/2025, 02/08/2022 DTaP/Tdap/Td Vaccines (2 - Td or Tdap) 02/09/2032 02/08/2022 HIV Screening Completed 02/08/2022 Hepatitis C Screening Completed 02/08/2022 Zoster Vaccines Completed 05/02/2022, 02/28/2022 Pneumococcal Vaccine: 50+ Years Completed 06/23/2023 Hepatitis A Vaccines Aged Out 01/15/2025, 03/14/20 No longer eligible based on patient's age to complete this topic Influenza Vaccine Completed 05/28/2025, , 06/23/2023, Additional history exists COVID-19 Vaccine Completed 07/07/2025, 07/2022, 08/26/2021, Additional history exists HIB Vaccines Aged Out [...] on patient's age to complete this topic Goals Goal Patient Goal Type Associated Problems Recent Progress Patient-Stated? Author Help patients manage their type 2 diabetes Care Plan Help patients manage their type 2 diabetes Kim Mcdonald, Barry Weekly blood pressure task Care Plan Weekly blood pressure task No Kim Mcrae, PharmD Help patients manage their type 2 diabetes Care Plan Help patients manage their type 2 diabetes No Kim Mcrae, PharmD Patient has diabetic eye disease Care Plan Patient has diabetic eye disease No Kim Mcrae, PharmD Help patients manage their type 2 diabetes Care Plan Help patients manage their type 2 diabetes No Kim Mcrae PharmD Patient has chronic kidney disease Care Plan Patient has chronic kidney disease No Kim Mcrae PharmD Weekly blood pressure task Care Plan Weekly blood pressure task No Kim Mcrae PharmD Weekly blood pressure task Care Plan Weekly blood pressure task No Kim Mcrae PharmD Patient has diabetic eye disease Care Plan Patient has diabetic eye disease No Kim Mcrae, PharmD Patient has diabetic eye disease Care Plan Patient has diabetic eye disease No Kim Mcrae PharmD Patient has chronic kidney disease Care Plan Patient has chronic kidney disease No Timi-Kim Sheppard, PharmD Patient has chronic kidney disease Care Plan Patient has chronic kidney disease No Kim Mcrae PharmD Procedures Procedure Name Priority Date/Time Associated Diagnosis Comments HIGH SENSITIVITY TROPONIN I Routine 07/25/2025 3:20 PM EST CREATINE KINASE, TOTAL Routine 07/25/2025 3:20 PM EST COMPREHENSIVE METABOLIC PANEL Routine 07/25/2025 3:20 PM EST CBC WITH AUTO DIFFERENTIAL Routine 07/25/2025 3:20 PM EST POCT GLUCOSE Routine 07/25/2025 1:35 PM EST Type 2 diabetes mellitus with hyperglycemia, with long-term current use of insulin (HCC) HEPATITIS B SURFACE ANTIBODY, QUALITATIVE Routine 06/17/2025 1:34 PM EDT Need for hepatitis B screening test HEPATITIS B SURFACE ANTIGEN, EIA Routine 06/17/2025 1:34 PM EDT Need for hepatitis B screening test HEPATITIS B CORE AB TOTAL Routine 06/17/2025 1:34 PM EDT Need for hepatitis B screening test HEMOGLOBIN A1C Routine 06/17/2025 1:34 PM EDT Hypertension associated with diabetes (HCC) TSH W/REFLEX TO FT4 Routine 06/17/2025 1 :34 PM EDT Hypertension associated with diabetes (HCC) CBC WITH AUTO DIFFERENTIAL Routine 06/17/2025 1:34 PM EDT Hypertension associated with diabetes (HCC) VITAMIN B12 Routine 06/17/2025 1:34 PM EDT Hypertension associated with diabetes (HCC) ALBUMIN, RANDOM URINE W/CREATININE Routine 06/17/2025 1:34 PM EDT Hypertension associated with diabetes (HCC) COMPREHENSIVE METABOLIC PANEL Routine 06/17/2025 1:34 PM EDT Hypertension associated with diabetes (HCC) LIPID PANEL, STANDARD Routine 06/17/2025 1:34 PM EDT Status post coronary artery bypass graft OCT, RETINA - OU - BOTH EYES Routine 05/30/2025 10:00 AM EDT 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 with type 2 diabetes mellitus (HCC) ZZZ HISTORICAL HEPATITIS C AB W/REFL TO HCV RNA, QN, PCR Routine 02/08/2022 11:53 AM EDT HIV 1/2 ANTIGEN/ANTIBODY, FOURTH GENERATION W/RFL Routine 02/08/2022 11:53 AM EDT from Last 3 Months or Most Recently Relevant to Health Maintenance Results * High Sensitivity Troponin I (07/25/2025 3:20 PM EST) TROPONIN I HIGH SENSITIVITY 7.2 <3.5 - 35.0 ng/L [facility] Comment:The Haskins high sens itivity Troponin-I results should beused in conjunction with other diagnostic information suchas ECG, clinical observations and information, and patientsymptoms to aid in the diagnosis of CO. 07/25/2025 3:20 PM EST 07/25/2025 3:24 PM EST us Generic External Data Provider LAB BLOOD ORDERAB LES Final Result [facility] [address] [place] [address] [phone] * (ABNORMAL) CBC auto differential (07/25/2025 3:20 PM EST) Only the most recent of2 resultswithin the time period is included. White Blood Count 12.1(H) 4.8 - 10.8 X10*3/uL [facility] Red Blood Count 5.29 4.60 - 5.80 X10*6/uL [facility] Hemoglobin 13.8(L) 14.0 - 18.0 g/dl [facility] Hematocrit 42.6 42.0 - 52.0 % [facility] Mean Corpuscular Volume 80.5 80.0 - 98.0 fL [facility] Mean Corpuscular Hemoglobin 26.1(L) 27.0 - 33.0 pg [facility] Mean Corpuscular HGB Conc 32.4 31.0 - 36.0 g/dl [facility] Red Cell Distribution Width 15.0 11.0 - 16.0 % [facility] Platelet Count 168 160 - 400 X10*3/uL [facility] Mean Platelet Volume 10.9 9.4 - 12.4 fL [facility] Neutrophils Percent Auto 75.8(H) 45 - 73 % [facility] Imm Gran Pct Auto 0.6(H) 0.0 - 0.4 % [facility] Lymphocytes Percent Auto 13.9(L) 20 - 40 % [facility] Monocytes Percent Auto 5.9 2 - 11 % [facility] Eosinophils Percent Auto 3.1 0 - 4 % [facility] Basophils Percent Auto 0.7 0 - 2 % [facility] NRBC Pct Auto 0.0 0.0 - 0.2 /100WBC [facility] Neutrophils Absolute Auto 9.2(H) 2.0 - 8.3 x10*3/uL [facility] Imm Gran Abs Auto 0.07(H) 0.00 - 0.03 X10*3/uL [facility] Lymphocytes Absolute Auto 1.7 1.2 - 4.9 X10*3/uL [facility] Monocytes Absolute Auto 0.7 0.1 - 1.2 X10*3/uL [facility] Eosinophils Absolute Auto 0.4 0.0 - 0.4 X10*3/uL [facility] Basophils Absolute Auto 0.1 0.0 - 0.2 X10*3/uL [facility] NRBC Abs Auto 0.000 0.0 - 0.012 X10*3/uL [facility] 07/25/2025 3:20 PM EST 07/25/2025 3:24 PM EST Generic External Data Provider LAB BLOOD ORDERAB LES Final Result Performing Organization Address [facility] Co de Phone Number [facility] [address] [place] [phone] * Creatine Kinase, Total (07/25/2025 3:20 PM EST) [facility] Creatine Kinase Total 102 38 - 174 U/L [facility] 07/25/2025 3:20 PM EST 07/25/2025 3:24 PM EST [employer] External Data Provider LAB BLOOD ORDERAB LES Final Result Performing Organization Address [facility] de Phone Number [facility] [address] [place] [phone] * (ABNORMAL) Comprehensive Metabolic Panel (07/25/2025 3:20 PM EST) Only the most recent of2 resultswithin the time period is included. [facility] Sodium 132(L) 135 - 145 mmol/L [facility] Potassium 5.0 3.3 - 5.1 mmol/L [facility] Chloride 100 96 - 108 mmol/L [facility] Carbon Dioxide 25 22 - 29 mmol/L [facility] Anion Gap 12 12 - 20 [facility] Urea Nitrogen (BUN) 35(H) 9 - 16 mg/dL [facility] Creatinine, Serum 1.84(H) 0.5 - 1.4 mg/dL [facility] Creatinine Clr Calc Pharmacy 39.7 [facility] Comment:eGFR (calculated fro m the MDRD study equation) and eCrCl(calculated from the Cockcroft-Gault equation) are based ondifferent parameters and may not yield comparable results.If eCrCl result is absurd, please check patient'sheight/weight. Estimated Glomerular Filt Rate 37 [facility] Comment:Chronic Kidney Disea se: Estimated GFR < 60 mL/min/1.55e2Mkzelw Kidney Disease: Estimated GFR < 15 mL/min/1.73m2 Glucose 395(HH) 60 - 115 mg/dL [facility] Comment:Critical value for t est(s):GLUR Results called to and readback by: SUSHMA Person calling: ALKASAB Date:07/25/25Time:15:44 Calcium 9.4 8.4 - 10.2 mg/dL [facility] Bilirubin, Total 0.4 0.0 - 1.0 mg/dL [facility] Aspartate Amino Transferase 27 5 - 37 U/L [facility] Alanine Aminotransferase 28 0 - 40 U/L [facility] Total Protein 8.1(H) 6.5 - 8.0 g/dL [facility] Albumin Level 4.3 3.5 - 5.0 g/dL [facility] Alkaline Phosphatase 111 39 - 117 U/L [facility] 07/25/2025 3:20 PM EST 07/25/2025 3:24 PM EST us Generic External Data Provider LAB BLOOD ORDERAB LES Final Result [facility] [address] [place] [address] [phone] * (ABNORMAL) POCT Glucose (07/25/2025 1:35 PM EST) Glucose Blood, POC 293(A) 60 - 200 mg/dL QC Media Lot # [id number] Lot# Expiration Date Blood Capillary blood specimen / Unknown 07/25/2025 1:35 PM EST us Shanda Joseph ANP POINT OF CARE TEST ENTER/EDIT OR DERABLES Final Result * TSH W/Reflex to FT4 (06/17/2025 1:34 PM EDT) TSH reflex Free T4 3.26 0.32 - 4.0 uIU/mL [facility] Blood Venous blood specimen / Unknown 06/17/2025 1:34 PM EDT 06/17/2025 4:15 PM EDT us Shanda Joseph ANP LAB BLOOD ORDERABLES Final Resul t Performing Organization Address [facility] de Phone Number [facility] [address] [place] [phone] * (ABNORMAL) Albumin, Random Urine W/Creatinine (06/17/2025 1:34 PM EDT) Creatinine, Urine 49.34 mg/dL [facility] Microalbumin Urine 281.0 mg/L [facility] Microalbum Creatinine Ratio Ur 569.5(H) <30 ug/mg cr [facility] Comment:Albumin/Creatinine R atio Reference Ranges: Normal: < 30 ug/mg creatinine Microalbuminuria: 30 - 300 ug/mg creatinineClinical Albuminuria: > 300 ug/mg creatinine Urine (Urine, Random) 06/17/2025 1:34 PM EDT 06/17/2025 4:05 PM EDT us Shanda Joseph ANP LAB URINE ORDERABLES Final Resul t Performing Organization Address [facility] Co de Phone Number [facility] [address] [place] [address] [phone] * Hepatitis B surface antigen, EIA (06/17/2025 1:34 PM EDT) Pathologist [facility] Hepatitis B Surface Ag Negative Negative [facility] Blood Venous blood specimen / Unknown 06/17/2025 1:34 PM EDT 06/17/2025 4:15 PM EDT Shanda Joseph ANP LAB BLOOD ORDERABLES Final Resul t Performing Organization Address [facility]/ZIP Co de Phone Number [facility] [address] [place] [phone] * Hepatitis B Core Antibody, Total (06/17/2025 1:34 PM EDT) Pathologist [facility] Hepatitis B Core Antibody Nonreactive Nonreactive [facility] Blood Venous blood specimen / Unknown 06/17/2025 1:34 PM EDT 06/17/2025 4:15 PM EDT Shanda Joseph ANP LAB BLOOD ORDERABLES Final Resul t Performing Organization Address [facility] Co de Phone Number [facility] [address] [place] [phone] * Hepatitis B Surface Antibody, Qualitative (06/17/2025 1:34 PM EDT) Pathologist [facility] ~Hepatitis B Surface Antibody NONREACTIVE Nonreactive [facility] Comment:Nonreactive: < 8.00 mIU/mL Blood Venous blood specimen / Unknown 06/17/2025 1:34 PM EDT 06/17/2025 4:15 PM EDT Shanda Joseph ANP LAB BLOOD ORDERABLES Final Resul t Performing Organization Address [facility] Co de Phone Number [facility] [address] [place] [phone] * (ABNORMAL) Hemoglobin A1c (06/17/2025 1:34 PM EDT) Hemoglobin A1c 6.2(H) <6.0 % [facility] Comment:Hemoglobin A1C Refer ence Range Adults: 4.8 - 6.0 % Non diabetic: < 6.0 % Goal: < 7.0 %Additional Action Suggested: > 8.0 %Note: Hemoglobin A1c results are invalid for patients with abnormal amounts of HbF. Blood transfusions may impact the HbA1c concentration in the patient sample. Estimated Average Glucose 131 mg/dL [facility] Comment:eAG = Estimated ave rage glucose which is %A1C expressed asaverage glucose, using the formula of the T6X-FefiuttOqkogsn Glucose study (ADAG), Diabetes Care, Vol.31,#8,2007 Blood Venous blood specimen / Unknown 06/17/2025 1:34 PM EDT 06/17/2025 4:15 PM EDT Shanda Joseph ANP LAB BLOOD ORDERABLES Final Resul t Performing Organization Address City/[facility]/ZIP Co de Phone Number [facility] [address] [place] [phone] * Vitamin B12 (06/17/2025 1:34 PM EDT) Pathologist [facility] Vitamin B12 708 200 - 900 pg/mL [facility] Comment:NORMAL 200-900 PG/ML INDETERMINATE 160-199 PG/ML DEFICIENT < 160 PG/ML Blood Venous blood specimen / Unknown 06/17/2025 1:34 PM EDT 06/17/2025 4:15 PM EDT Shanda Joseph ANP LAB BLOOD ORDERABLES Final Resul t Performing Organization Address City/[facility]/ZIP Co de Phone Number [facility] [address] [place] [phone] * (ABNORMAL) Lipid Panel, Standard (06/17/2025 1:34 PM EDT) Triglycerides 176(H) <150 mg/dL [facility] Comment:Desirable Triglyceri de: less than 150 mg/dLBorderline High Triglyceride 150-199 mg/dLHigh Triglyceride: 200-499 mg/dLVery High Triglyceride: greater than or equal to 5OO mg/dL Cholesterol 127 <200 mg/dL [facility] Comment:Desirable Cholestero l: less than 200 mg/dLBorderline High Cholesterol: 200-239 mg/dLHigh Cholesterol: greater than 239 mg/dL LDL Cholesterol Calculated 60 <100 mg/dL [facility] Comment:Desirable LDL: less than 100 mg/dLNear Optimal/Above Optimal LDL: 110- 129 mg/dLBorderline High LDL: 130-159 mg/dLHigh LDL: 160-189 mg/dLVery High LDL: greater than or equal to 190 mg/dL HDL Cholesterol 32(L) >40 mg/dL [facility] Comment:Desirable HDL: great er than 40 mg/dL Note: This HDL assay may give artificially low results in patients with liver disease. Blood Venous blood specimen / Unknown 06/17/2025 1:34 PM EDT 06/17/2025 4:15 PM EDT us Shanda Joseph [facility] LAB BLOOD ORDERABLES Final Resul t [facility] [address] [place] [phone] * OCT, Retina - OU - Both Eyes (05/30/2025 10:00 AM EDT) Narrative Oneyda Merrill, OD - 06/06/2025 2:59 PM EDT Images [...] Will also monitor here in 3 months. us Oneyda Merrill OD OPHTH TOMOGRAPHY Final Result * HEPATITIS C AB W/REFL TO HCV RNA, QN, PCR (02/08/2022 11:53 AM EDT) HEPATITIS C ANTIBODY NON-REACT ALEJANDRO NON-REACT ALEJANDRO [facility] INDEX 0.02 <1.00 [facility] Comment: HCV antibody was non-reactive. There is no laboratory evidence of HCV infection. In most cases, no further action is required. However, if recent HCV exposure is suspected, a test for HCV RNA (test code 79013) is suggested. For additional information please refer to http://Viss.DwellAware/faq/PKC87o8 (This link is being provided for informational/ educational purposes only.) 02/08/2022 11:5 3 AM EDT us Shanda Joseph ANP HISTORICAL/NON ORDERABLE LABS Fi nal Result [facility] [address]where [address] * HIV 1/2 ANTIGEN/ANTIBODY,FOURTH GENERATION W/RFL (02/08/2022 11:53 AM EDT) HIV-1/2 ANTIGEN AND ANTIBODIES, 4TH GENERATION W/ REFLEX NON-REACT ALEJANDRO NON-REACT ALEJANDRO [facility] Comment: HIV-1 antigen and HIV-1/HIV-2 [...] purpose. For additional information please refer to http://Viss.DwellAware/faq/DZP959 (This link is being provided for informational/ educational purposes only.) The performance of this assay has not been clinically validated in patients less than 2 years old. 02/08/2022 11:5 3 AM EDT us Shanda Joseph [facility] BLOOD ORDERABLES Final Resul t [facility] [address] from Last 3 Months or Most Recently Relevant to Health Maintenance Additional Health Concerns Active Problems Noted Date [...] 07/25/2025 Patient has chronic kidney disease 07/25/2025 Insurance [employer] C3 Care Teams Debarker Operator Relationship Specialty Start Date End Date Shanda Joseph ANP [address] [facility] [place] [address] PCP - General Family Medicine 02/22/22
--- OUTSIDE RECORDS SUMMARY | 2025-07-25 17:22 | XMS_ITS | Encounter Summary ---
Author Organization [employer] Address [address] [facility] 7t [place] [address] Care Team Providers Care Associate Professor Of Psychology Name Role Phone Shanda Joseph Primary Care Provider [phone] Encounter Details Date Type Department Care Team (Late st Contact Info) Description 09/09/2022 Telephone [facility] [address] [place] [address] Shanda Joseph ANP [address] [place] [address] Social History Tobacco Use Types Packs/Day Years [...] Description 09/12/2025 11:30 AM EST Office Visit [facility] OPTOMETRY [address] [place] [address] Garfield, Oneyda, OD [address] [place] [address] documented as of this encounter Visit Diagnoses Not on filedocumented in this encounter Care Teams Associate Professor Of Psychology Relationship Specialty Start Date End Date Shanda Joseph ANP [address] [place] [address] PCP - General Family Medicine 02/22/22 documented as of this encounter
--- OUTSIDE RECORDS SUMMARY | 2025-07-25 17:22 | XMS_ITS | Encounter Summary ---
Author Organization [employer] Address [address] [facility] [address] 7[address] [place] [address] Care Team Providers Care Inspector And Clerk Name Role Phone Shanda Joseph MONSTER Primary Care Provider [phone] Encounter Details Date Type Department Care Team (Latest Contact Info) Description 07/25/2025 Travel Social History Tobacco Use Types Packs/Day Years [...] with others, in a hotel, in a fdc, living outside on the street, on a [...] Description 09/12/2025 11:30 AM EST Office Visit [facility] OPT[facility]ETRY [address] [place], [place] [id number] GarfieldWilfred hin, OD [address] [place], [place] [phone] documented as of this encounter Goals Goal Patient Goal Type Associated Problems Recent Progress Patient-Stated? Author Help patients manage their type 2 diabetes Care Plan Help patients manage their type 2 diabetes No Piers-Sheppard , Kim, PharmD Weekly blood [...] kidney disease No Piers-Sheppard , Kim, PharmD Patient has chronic kidney disease Care Plan Patient has chronic kidney disease No Kim Mcrae PharmD documented as of this encounter Visit Diagnoses [...] documented as of this encounter Care Teams Inspector And Clerk Relationship Specialty Start Date End Date Shanda Joseph ANP [address] [place] [id number] PCP - General Family Medicine 02/22/22 documented as of this encounter
[2025-07-25 18:07] VITALS: BP 124/78; PULSE 78; RESP 18; TEMP 37; O2SAT 97
[2025-07-25 18:09] LABS: Troponin-I High Sensitivity 9.3 ng/L (<3.5-35.0)
[2025-07-25 18:41] LABS: Glucose, Whole Blood 342 mg/dL (60-115)
[2025-07-25 19:04] VITALS: BP 135/69; PULSE 61; RESP 16; TEMP 36.8; O2SAT 96
[2025-07-25 19:06] VITALS: BP 135/69; PULSE 61; RESP 16; TEMP 36.8; O2SAT 96
== END 2025-07-25 19:07 | disposition home or self-care (01) ==
PROVIDERS: Physician Assistant; Emergency Provider Emergency Medicine; PCP Nurse Practitioner Primary Care
DX: E11.65 Type 2 diabetes mellitus with hyperglycemia (principal); E86.0 Dehydration; R00.1 Bradycardia, unspecified; R11.0 Nausea; Z79.4 Long term (current) use of insulin; Z79.899 Other long term (current) drug therapy; F17.210 Nicotine dependence, cigarettes, uncomplicated
CPT/HCPCS: 36415; 80053; 82550; 82947; 84484; 85025; 93005; 96360; 99285

== ENCOUNTER → 2025-07-25 15:01 | Outpatient (BNV) | payer MEDICAID, SELFPAY | PROVIDERS: Emergency Provider Emergency Medicine; PCP Nurse Practitioner Primary Care; Visit Provider Internal Medicine | DX: R00.1 Bradycardia, unspecified (principal); I51.7 Cardiomegaly | CPT/HCPCS: 93010 ==

== ENCOUNTER 2025-08-25 13:51 | Outpatient (REF) | payer MEDICAID, SELFPAY ==
[2025-08-25 16:22] LABS: Anion Gap 11 (12-20); Blood Urea Nitrogen 23 mg/dL (9-16); Calcium 9.6 mg/dL (8.4-10.2); Carbon Dioxide 28 mmol/L (22-29); Chloride 105 mmol/L (96-108); Estimated Glomerular Filt Rate 52; Potassium 4.7 mmol/L (3.3-5.1); Sodium 139 mmol/L (135-145)
--- OUTSIDE RECORDS SUMMARY | 2025-08-25 17:18 | XMS_ITS | Encounter Summary ---
Author Organization [employer] Address [address] [facility] 7t [place] [address] Care Team Providers Care Jewelry Coater Name Role Phone Shanda Joseph Primary Care Provider [phone] Kim Mcrae PharmD Unavailable [phone] Encounter Details Date Type Department Care Team (Late Contact Info) Description 09/09/[address] [address] Shanda Joseph ANP [address] [place] [address] Social History Tobacco Use Types Packs/Day Years [...] Encounters Date Type Department Care Team (Late Contact Info) Description 09/12/2025 11:30 AM EST Office Visit [facility] OPTOMETRY [address] [place] [address] Garfield, Oneyda, OD [address] [place] [address] 09/12/2025 2:00 PM EST Immunization [address] [address] 09/26/2025 1:30 PM EST Medication Management [address] [address] Kim Mcrae, PharmD [address] [place] [address] documented as of this encounter Visit Diagnoses Not on filedocumented in this encounter Care Teams Jewelry Coater Relationship Specialty Start Date End Date Shanda Joseph ANP [address] [place] [address] PCP - General Family Medicine 02/22/22 Kim Mcrae, PharmD [address] [place] [address] Pharmacist Pharmacy 07/26/25 documented as of this encounter
--- OUTSIDE RECORDS SUMMARY | 2025-08-25 17:18 | XMS_ITS | Encounter Summary ---
Author Organization [employer] Address [address] [facility] 7t [place] [address] Care Team Providers Care Roller Billet Mill Name Role Phone Shanda Joseph Primary Care Provider [phone] Kim Mcrae PharmD Unavailable [phone] Encounter Details Date Type Department Care Team (Late st Contact Info) Description 08/25/2025 Orders Only [facility] [address] [place], [place] [phone] Shanda Joseph ANP [address] [place] [address] Social History Tobacco Use Types Packs/Day Years [...] with others, in a hotel, in a longterm, living outside on the street, on a [...] Description 09/12/2025 11:30 AM EST Office Visit [facility] OPTOMETRY [address] [place] [address] Garfiled, Oneyda, OD [address] [place] [address] 09/12/2025 2:00 PM EST Immunization [facility] [address] [place] [address] 09/26/2025 1:30 PM EST Medication Management [facility] [address] [place] [address] Kim Mcrae, PharmD [address] [place] [address] documented as of this encounter Goals Goal Patient Goal Type Associated Problems Recent Progress Patient-Stated? Author Help patients manage their type 2 diabetes Care Plan Help patients manage their type 2 diabetes No Kim Mcrae, PharmCornelia Weekly blood pressure task Care Plan Weekly [...] Plan Weekly blood pressure task No Piers-Sheppard Kim, PharmD Weekly blood pressure task Care [...] Care Plan Weekly blood pressure task No Shanda Joseph ANP Weekly blood pressure task Care Plan Weekly blood pressure task No Shanda Joseph ANP Weekly blood pressure task Care Plan Weekly blood pressure task No Shanda Joseph ANP Patient has diabetic eye disease Care Plan Patient has diabetic eye disease No Shanda Joseph ANP Patient has diabetic eye disease Care Plan Patient has diabetic eye disease No Shanda Joseph ANP Patient has diabetic eye disease Care Plan Patient has diabetic eye disease No Shanda Joseph ANP Patient has chronic kidney disease Care Plan Patient has chronic kidney disease No Shanda Joseph ANP Patient has chronic kidney disease Care Plan Patient has chronic kidney disease No Shanda Joseph ANP Patient has chronic kidney disease Care Plan Patient has chronic kidney disease No Shanda Joseph ANP Weekly blood pressure task Care Plan Weekly blood pressure task No Isha Fallon RN Weekly blood pressure task Care Plan Weekly blood pressure task No Isha Fallon RN Weekly blood pressure task Care Plan Weekly blood pressure task No Isha Fallon RN Patient has diabetic eye disease Care Plan Patient has diabetic eye disease No Isha Fallon RN Patient has diabetic eye disease Care Plan Patient has diabetic eye disease No Isha Fallon RN Patient has diabetic eye disease Care Plan Patient has diabetic eye disease No Isha Fallon RN Patient has chronic kidney disease Care Plan Patient has chronic kidney disease No Isha Fallon RN Patient has chronic kidney disease Care Plan Patient has chronic kidney disease No Isha Fallon RN Patient has chronic kidney disease Care Plan Patient has chronic kidney disease No Isha Fallon RN Weekly blood pressure task Care Plan Weekly blood pressure task No Kimberly Cruz, PharmD Weekly blood pressure task Care Plan Weekly blood pressure task No Fadia Cruzfer, PharmD Weekly blood pressure task Care Plan Weekly blood pressure task No Fadia Cruzfer, PharmD Patient has diabetic eye disease Care Plan Patient has diabetic eye disease No CruzLisaKimberly, PharmD Patient has diabetic eye disease Care Plan Patient has diabetic eye disease No CruzLisaKimberly, PharmD Patient has diabetic eye disease Care Plan Patient has diabetic eye disease No Cruz Kimberly, PharmD Patient has chronic kidney disease Care Plan Patient has chronic kidney disease No Cruz Kimberly, PharmD Patient has chronic kidney disease Care Plan Patient has chronic kidney disease No Cruz Kimberly, PharmD Patient has chronic kidney disease Care Plan Patient has chronic kidney disease No CruzLisaKimberly, PharmD Weekly blood pressure task Care Plan Weekly blood pressure task No MaicolsKim Naqvi, PharmD Weekly blood pressure task Care Plan Weekly blood pressure task No Maicols-Sheppard Tarynsa, PharmD Weekly blood pressure task Care Plan Weekly blood pressure task No Kim Mcrae, PharmD Patient has diabetic eye disease Care Plan Patient has diabetic eye disease No Maicols-Kim Sheppard, PharmD Patient has diabetic eye disease Care Plan Patient has diabetic eye disease No Maicols-Taryn Sheppardsa, PharmD Patient has diabetic eye disease Care Plan Patient has diabetic eye disease No Maicols-Taryn Sheppardsa, PharmD Patient has chronic kidney disease Care Plan Patient has chronic kidney disease No Maicols-Kim Sheppard, PharmD Patient has chronic kidney disease Care Plan Patient has chronic kidney disease No Maicols-Kim Sheppard, PharmD Patient has chronic kidney disease Care Plan Patient has chronic kidney disease No Timi-Kim Sheppard, PharmD documented as of this encounter Procedures Procedure Name Priority Date/Time Associated Diagnosis Comments BASIC METABOLIC PANEL Routine 08/25/2025 1:55 PM EST documented in this encounter Results * (ABNORMAL) Basic Metabolic Panel (08/25/2025 1:55 PM EST) Sodium 139 135 - 145 mmol/L [facility] Potassium 4.7 3.3 - 5.1 mmol/L [facility] Chloride 105 96 - 108 mmol/L [facility] Carbon Dioxide 28 22 - 29 mmol/L [facility] Anion Gap 11(L) 12 - 20 [facility] Urea Nitrogen (BUN) 23(H) 9 - 16 mg/dL [facility] Creatinine, Serum 1.38 0.5 - 1.4 mg/dL [facility] Estimated Glomerular Filt Rate 52 [facility] Comment:Chronic Kidney Disea se: Estimated GFR < 60 mL/min/[id number] Kidney Disease: Estimated GFR < 15 mL/min/1.73m2 Glucose 217(H) 60 - 115 mg/dL [facility] Calcium 9.6 8.4 - 10.2 mg/dL [facility] 08/25/2025 1:55 PM EST 08/25/2025 3:57 PM EST [facility] LAB BLOOD ORDERABLES Final Resul t [facility] [address] [place] [address] [phone] documented in this encounter Visit Diagnoses [...] 07/25/2025 Patient has chronic kidney disease 07/25/2025 Weekly blood pressure task 07/28/2025 Weekly blood pressure task 07/28/2025 Weekly blood pressure task 07/28/2025 Patient has diabetic eye disease 07/28/2025 Patient has diabetic eye disease 07/28/2025 Patient has diabetic eye disease 07/28/2025 Patient has chronic kidney disease 07/28/2025 Patient has chronic kidney disease 07/28/2025 Patient has chronic kidney disease 07/28/2025 Weekly blood pressure task 08/03/2025 Weekly blood pressure task 08/03/2025 Weekly blood pressure task 08/03/2025 Patient has diabetic eye disease 08/03/2025 Patient has diabetic eye disease 08/03/2025 Patient has diabetic eye disease 08/03/2025 Patient has chronic kidney disease 08/03/2025 Patient has chronic kidney disease 08/03/2025 Patient has chronic kidney disease 08/03/2025 Weekly blood pressure task 08/12/2025 Weekly blood pressure task 08/12/2025 Weekly blood pressure task 08/12/2025 Patient has diabetic eye disease 08/12/2025 Patient has diabetic eye disease 08/12/2025 Patient has diabetic eye disease 08/12/2025 Patient has chronic kidney disease 08/12/2025 Patient has chronic kidney disease 08/12/2025 Patient has chronic kidney disease 08/12/2025 Weekly blood pressure task 08/22/2025 Weekly blood pressure task 08/22/2025 Weekly blood pressure task 08/22/2025 Patient has diabetic eye disease 08/22/2025 Patient has diabetic eye disease 08/22/2025 Patient has diabetic eye disease 08/22/2025 Patient has chronic kidney disease 08/22/2025 Patient has chronic kidney disease 08/22/2025 Patient has chronic kidney disease 08/22/2025 Weekly blood pressure task 08/25/2025 Weekly blood pressure task 08/25/2025 Weekly blood pressure task 08/25/2025 Patient has diabetic eye disease 08/25/2025 Patient has diabetic eye disease 08/25/2025 Patient has diabetic eye disease 08/25/2025 Patient has chronic kidney disease 08/25/2025 Patient has chronic kidney disease 08/25/2025 Patient has chronic kidney disease 08/25/2025 Assessment Noted Time PHQ-9 Depression Total Score: 3 05/28/20 2:58 PM EDT documented as of this encounter Care Teams [employer]illet Mill Relationship Specialty Start Date End Date Shanda Joseph ANP [address] [place] [address] PCP - General Family Medicine 02/22/22 Kim Mcrea PharmD [address] [place] [address] Pharmacist Pharmacy 07/26/25 documented as of this encounter
--- OUTSIDE RECORDS SUMMARY | 2025-08-25 17:18 | XMS_ITS | Patient Health Record ---
Author Organization [facility] Address [address] [place] [address] Care Team Providers Care Entry Level Civil Engineer Name Role Phone PB JOHNSON N.P. Primary Care Provider Twin Aranda [phone] Allergies No Known Allergies Reason For Referral [...] Duration: 1 day Please put instructions in Kyrgyz. Thanks very much 04/30/2023 Active Dulcolax (colon prep) 5 MG Tablet Delayed Release take at 3:00 p.m and 7:00p.m. Orally two tablets twice a day for one day; Duration: 1 day Please put instructions in Kyrgyz. Thanks very much 04/30/2023 Active MiraLax (colon [...] Status Risk Notes Problem Colon cancer screening (553637658) Colon cancer screening (Z12.11) Active confirmed Problem Weight loss (784382277) Weight loss (R63.4) Active confirmed Problem Gastroesophageal reflux disease (772584915) Gastroesophageal reflux disease, unspecified whether esophagitis present (K21.9) Active confirmed Plan Of Treatment Future Test Test Name Order Date UPPER GI ENDOSCOPY 04/28/2023 COLONOSCOPY 04/28/2023 Insurance Providers Payer Name Payer Address Payer Phone Subscriber Number Group Number Insured Name Patient Relationship to Insured Coverage Start Date Coverage End Date MEDICAID OF [facility] [address] [place] [phone] [id number] ISABEL SHELLEY Self - patient is the insured Medical (General) History Medical History History ICD Code DM HTN GERD Denies [place],CVA,Lung disease,renal disease Hyperlipidemia EtOH abuse-reports sobriety since 09/2022 as of the 04/2023 OV Surgical History Surgery Date(Month/Year) Cataract removal bilaterally
--- OUTSIDE RECORDS SUMMARY | 2025-08-25 17:18 | XMS_ITS | Clinical Summary ---
Author Organization [employer] Address [address] [place] [address] Care Team Providers Care Tree Surgeon Helper Name Role Phone Shanda Joseph MONSTER Primary Care Provider [phone] Kim Mcrae PharmD Unavailable [phone] Allergies No known active allergies Medications FREESTYLE LITE test stripIndication s:Type 2 diabetes mellitus with other circulatory complication, with long-term current use of insulin ([facility]) TEST BLOOD SUGAR TWICE DAILY 100 each 023 Active TRUEplus Lancets 33G miscIndications :Type 2 diabetes mellitus with other circulatory complication, with long-term current use of insulin ([facility]) Test blood sugar twice daily and more as needed 100 each 023 Active aspirin 81 MG EC tabletIndicatio ns:Cardiovascul ar event risk Take 1 tablet (81 mg) by mouth in the morning. 90 tablet 024 Active ferrous sulfate 325 (65 Fe) MG [...] mouth Once per day. 30 tablet 11 08/25/20 25 2:15 PM EST 025 2025 Active senna-docusate sodium (Senokot-S) 8.6-50 MG tabletIndicatio ns:Constipation , unspecified constipation type Take 1 tablet by mouth Once per day. 60 tablet 2 Active Continuous Glucose Parts Consultant (FreeStyle Kiana 3 [place]) deviceIndicatio ns:Hypertension associated with diabetes (HCC) 1 each Once per day. Use as directed for CGM 1 each Active Continuous Glucose Sensor (FreeStyle Kiana 3 Plus Sensor) miscIndications :Hypertension associated with diabetes (HCC) 1 each every 15 days. Apply 1 every 15 days as directed for CGM 2 each 08/04/20 1:08 PM EST Active glucose blood (FreeStyle Precision Johnny Test) test stripIndication s:Hypertension associated with diabetes (HCC) Use to test blood sugar 3 times daily in case of CGM failure or extremes of BG 100 each 11 025 2025 Active Alcohol Swabs (Alcohol Pads) 70 % padsIndications :Type 2 diabetes mellitus with hyperglycemia, with long-term current use of insulin ([facility]) Use as directed 100 each 11 025 Active insulin glargine (Lantus SoloStar) 100 UNIT/ML penIndications: Type 2 diabetes mellitus with hyperglycemia, with long-term current use of insulin ([facility]) Inject 14 Units under the skin at bedtime. 15 mL 3 025 Active insulin lispro (HumaLOG KWIKPEN) 100 UNIT/ML injectionIndica tions:Type 2 diabetes mellitus with hyperglycemia, with long-term current use of insulin ([facility]) Inject 4 Units under the skin before evening meal. 15 mL 1 07/28/20 25 3:24 PM EST 025 Active Sure Comfort Pen Grandin 31G X 5 MM miscIndications :Type 2 diabetes mellitus with hyperglycemia, with long-term current use of insulin ([facility]) USE WITH INSULIN ADMINISTRATION TWICE DAILY 100 each 3 025 Active pantoprazole (ProtoNix) 40 MG EC tablet Take 1 tablet (40 mg) by mouth Once per day. Do not crush, chew, or split. 90 tablet 1 08/25/20 25 2:15 PM EST 025 Active Tirzepatide (Mounjaro) 5 MG/0.5ML solution auto-injectorIn dications:Type 2 diabetes mellitus with hyperglycemia, with long-term current use of insulin (HCC) Inject 5 mg under the skin every 7 (seven) days. 2 mL 1 025 Active pantoprazole (ProtoNix) 40 MG EC tablet Take 1 tablet by mouth Once per day. Do not crush, chew, or split. 2024 Discontinued(R eorder (will not trigger notification to Pharmacy)) Tirzepatide (Mounjaro) 2.5 MG/0.5ML solution auto-injectorIn dications:Type 2 diabetes mellitus with hyperglycemia, with long-term current use of insulin (HCC) Inject 2.5 mg under the skin every 7 (seven) days. 2 mL 07/28/20 25 3:24 PM EST 025 2024 Discontinued(D ose adjustment) Active Problems Problem Noted Date Diagnosed Date [...] Encounters Date Type Department Care Team Description 08/25/2025 Orders Only [facility] [address] [place] [address] Shanda Joseph ANP 08/25/2025 Travel 08/22/2025 Refill [facility] [address] [place] [address] Shanda Joseph ANP 08/21/2025 Travel 08/12/2025 2:00 PM EST Immunization [facility] [address] [place] [address] Isha Fallon RN Encounter for immunization 08/12/2025 Travel 08/06/2025 Population Health Risk Score [facility] ([facility]) [address] [phone] Provider, Population Health Generic 07/28/2025 Telephone [facility] [place] [address] Kim Mcrae PharmD Paperwork/Forms 07/25/2025 Orders Only GENERIC EXTERNAL DATA DEPARTMENT Provider, Generic External Data 07/25/2025 Travel 07/04/2025 Orders Only [facility] [place] [address] Abilio Barajas MD Type 2 diabetes mellitus with hyperlipidemia (HCC) (Primary Dx) 07/04/2025 Telephone [facility] [place] [address] Kim Mcrae PharmD 07/04/2025 Refill [facility] [place] [address] Kim Mcrae PharmD Type 2 diabetes mellitus with hyperglycemia, with long-term current use of insulin (HCC) 07/04/2025 Travel 06/30/2025 Outside Procedure [facility] [address] [place] [address] Oneyda Merrill, OD Presbyopia (Primary Dx) 06/27/2025 Telephone [facility] [place] [address] Shanda Joseph ANP chart prep 06/26/2025 3:30 PM EDT Office Visit [facility] [address] [place] [address] Oneyda Merrill, OD Myopia of right eye (Primary Dx) 06/26/2025 3:00 PM EDT Clinical Support [facility] [place] [address] Isha Fallon RN Type 2 diabetes mellitus with hyperlipidemia (HCC) 06/26/2025 Travel 06/17/2025 Results Follow-Up [address] [address] Shanda Joseph ANP CBC auto differential, Hemoglobin A1c, Lipid Panel, Standard, Additional followed-up results: 7 06/05/2025 Telephone [facility] [place] [address] Isha Fallon RN CGM Initial Appointment 05/30/2025 10:00 AM EDT Office Visit [facility] [address] [place] [address] Oneyda Merrill, OD 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 with type 2 diabetes mellitus (CMS/HCC) (Primary Dx); 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; Hollenhorst plaque, right eye; Pseudophakia of both eyes; 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; Presbyopia 05/30/2025 Travel 05/29/2025 Telephone [facility] [address] [place] [address] Perla Mendieta RN Prior Auth Prescription 05/28/2025 2:30 PM EDT Office Visit [facility] [address] [place] [address] Shanda Joseph ANP Coronary artery disease involving grand ronde tribes coronary artery of grand ronde tribes heart without angina pectoris (Primary Dx); Status post coronary artery bypass graft; Hospital discharge follow-up; Encounter for immunization; Atherosclerosis of both carotid arteries; Hypertension associated with diabetes (CMS/HCC); Smoker; Constipation, unspecified constipation type; Illiterate; Need for hepatitis B screening test 05/28/2025 Telephone [facility] [address] [place] [address] Kim Mcrae PharmD 05/28/2025 Travel 05/27/2025 Telephone [facility] [address] [place] [address] Shanda Joseph ANP chart prep from Last 3 Months Immunizations Immunization Administration Dates Next Due Hep A, Adult 01/15/2025,03/14/2024 HepB-CpG 08/12/2025 Influenza injectable quadriv alent preservative free 06/23/2023,05/26/2022,08/24/2021 [...] Tobacco: Never Tobacco Cessation:Ready to Q uit: No; Counseling Given: Yes Alcohol Use Standard Drinks/Week Comments Not Currently [...] Sign Reading Time Taken Comments Blood Pressure 130/64 08/25/2025 1:41 PM EST Pulse 70 08/25/2025 1:41 PM EST Temperature 36.7 C (98.1 F) [...] Description 09/12/2025 11:30 AM EST Office Visit [facility] [address] [place] [address] Garfield, Oneyda, OD [address] [place] [address] 09/12/2025 2:00 PM EST Immunization [facility] [address] [place] [address] 09/26/2025 1:30 PM EST Medication Management [facility] [address] [place] [address] Kim Mcrae, PharmD [address] [place] [address] Health Maintenance Due Date Last Done Comments CT Colonography 1962 Colonoscopy 1962 Colorectal Cancer Screening 1962 FIT DNA/Cologuard 1962 FIT 1962 FOBT 1962 Sigmoidoscopy 1962 Diabetes: Foot Exam 01/12/1972 RSV Patients and Patients Aged 60 years or older (1 - Risk 50-74 years 1-dose series) 01/12/2012 Hepatitis B Vaccines (2 of 2 - CpG 2-dose series) 09/09/2025 08/12/2025 Diabetes: Hemoglobin A1C 12/16/2025 025, 12/05/2023, 09/28/2023, Additional history exists Alcohol/Substance Use Screening 05/28/2026 05/28/2025 Depression Screening 05/28/2026 05/28/2025, 05/28/20 Disability Screening 05/28/2026 05/28/2025 SDOH Screening 05/28/2026 05/28/2025 Eye Exam 05/30/2026 05/30/2025, 05/06, 05/30/2025, Additional history exists Diabetes: Urine Protein Screening 06/17/2026 06/17/2025, 02/08/2022, 02/08/2022 Lipid Panel 06/17/2026 06/17/2025, 02/08/2022 Tobacco Screening 07/26/2026 07/26/2025 DTaP/Tdap/Td Vaccines (2 - Td or Tdap) [...] has diabetic eye disease No Piers-Sheppard , Ikm, PharmD Patient has diabetic eye disease Care [...] chronic kidney disease No Kim Mcrae, PharmD Weekly blood pressure task Care Plan [...] Plan Patient has diabetic eye disease No Fadia Cruzfer, PharmD Patient has diabetic eye disease Care Plan Patient has diabetic eye disease No Fadia Cruzfer, PharmD Patient has diabetic eye disease Care Plan Patient has diabetic eye disease No Kimberly Cruz, PharmD Patient has chronic kidney disease Care Plan Patient has chronic kidney disease No Kimberly Cruz PharmD Patient has chronic kidney disease Care Plan Patient has chronic kidney disease No Kimberly Cruz PharmD Patient has chronic kidney disease Care Plan Patient has chronic kidney disease No Kimberly Cruz PharmD Weekly blood pressure task Care Plan Weekly blood pressure task No Maicols-Kim Sheppard, PharmD Weekly blood pressure task Care Plan Weekly blood pressure task No Maicols-Taryn Sheppardsa PharmD Weekly blood pressure task Care Plan Weekly blood pressure task No Piers-Sheppard Kim, PharmD Patient has diabetic eye disease Care Plan Patient has diabetic eye disease No Piers-Sheppard , Kim, PharmD Patient has diabetic eye disease Care Plan Patient has diabetic eye disease No Piers-Sheppard Kim, PharmD Patient has diabetic eye disease Care Plan Patient has diabetic eye disease No Piers-Sheppard , Kim, PharmD Patient has chronic kidney disease Care Plan Patient has chronic kidney disease No Maicols-Sheppard Tarynsa, PharmD Patient has chronic kidney disease Care Plan Patient has chronic kidney disease No Piers-Sheppard , Kim, PharmD Patient has chronic kidney disease Care Plan Patient has chronic kidney disease No Piers-Sheppard , Kim, PharmD Procedures Procedure Name Priority Date/Time Associated Diagnosis Comments BASIC METABOLIC PANEL Routine 08/25/2025 1:55 PM EST GLUCOSE, WHOLE BLOOD Routine 07/25/2025 6:37 PM EST HIGH SENSITIVITY TROPONIN I Routine 07/25/2025 5:40 PM EST HIGH SENSITIVITY TROPONIN I Routine 07/25/2025 3:20 PM EST CREATINE KINASE, TOTAL Routine 07/25/2025 3:20 PM EST COMPREHENSIVE METABOLIC PANEL Routine 07/25/2025 3:20 PM EST CBC WITH AUTO DIFFERENTIAL Routine 07/25/2025 3:20 PM EST POCT GLUCOSE (CPT-85862) Routine 07/25/2025 1:35 PM EST Type 2 [...] Relevant to Health Maintenance Results * (ABNORMAL) Basic Metabolic Panel (08/25/2025 1:55 PM EST) Sodium 139 135 - 145 mmol/L [facility] Potassium 4.7 3.3 - 5.1 mmol/L [facility] Chloride 105 96 - 108 mmol/L [facility] Carbon Dioxide 28 22 - 29 mmol/L [facility] Anion Gap 11(L) 12 - 20 [facility] Urea Nitrogen (BUN) 23(H) 9 - 16 mg/dL [facility] Creatinine, Serum 1.38 0.5 - 1.4 mg/dL [facility] Estimated Glomerular Filt Rate 52 [facility] Comment:Chronic Kidney Disea se: Estimated GFR < 60 mL/min/1.91n9Sxaasu Kidney Disease: Estimated GFR < 15 mL/min/1.73m2 Glucose 217(H) 60 - 115 mg/dL [facility] Calcium 9.6 8.4 - 10.2 mg/dL [facility] 08/25/2025 1:55 PM EST 08/25/2025 3:57 PM EST us Shanda Joseph ANP LAB BLOOD ORDERABLES Final Resul t [facility] [address] [place] [address] [phone] * (ABNORMAL) Glucose, Whole Blood (07/25/2025 6:37 PM EST) Glucose, Whole Blood 342(H) 60 - 115 mg/dL [facility] Comment:METER #: [id number] 07/25/2025 6:37 PM EST 07/25/2025 6:41 PM EST us Generic External Data Provider LAB BLOOD ORDERAB LES Final Result [facility] [address] [place] [phone] * High Sensitivity Troponin I (07/25/2025 5:40 PM EST) Only the most recent of2 resultswithin the time period is included. [facility] TROPONIN I HIGH SENSITIVITY 9.3 <3.5 - 35.0 ng/L [facility] Comment:The [place] high sens itivity Troponin-I results should beused in conjunction with other diagnostic information suchas ECG, clinical observations and information, and patientsymptoms to aid in the diagnosis of [place]. 07/25/2025 5:40 PM EST 07/25/2025 5:45 PM EST us Generic External Data Provider LAB BLOOD ORDERAB LES Final Result [facility] [address] [place] [phone] * (ABNORMAL) CBC auto differential (07/25/2025 3:20 PM EST) Only the most recent of2 resultswithin the time period is included. [facility] White Blood Count 12.1(H) 4.8 - 10.8 X10*3/uL [facility] Red Blood Count 5.29 4.60 - 5.80 X10*6/uL [facility] Hemoglobin 13.8(L) 14.0 - 18.0 g/dl [facility] Hematocrit 42.6 42.0 - 52.0 % [facility] Mean Corpuscular Volume 80.5 80.0 - 98.0 fL [facility] Mean Corpuscular Hemoglobin 26.1(L) 27.0 - 33.0 pg [facility] Mean Corpuscular HGB Conc 32.4 31.0 - 36.0 g/dl [facility] Red Cell Distribution Width 15.0 11.0 - 16.0 % [facility] Platelet Count 168 160 - 400 X10*3/uL [facility] Mean Platelet Volume 10.9 9.4 - 12.4 fL [facility] Neutrophils Percent Auto 75.8(H) 45 - 73 % [facility] Imm Gran Pct Auto 0.6(H) 0.0 - 0.4 % [facility] Lymphocytes Percent Auto 13.9(L) 20 - 40 % [facility] Monocytes Percent Auto 5.9 2 - 11 % [facility] Eosinophils Percent Auto 3.1 0 - 4 % [facility] Basophils Percent Auto 0.7 0 - 2 % [facility] NRBC Pct Auto 0.0 0.0 - 0.2 /100WBC [facility] Neutrophils Absolute Auto 9.2(H) 2.0 - 8.3 x10*3/uL [facility] Imm Gran Abs Auto 0.07(H) 0.00 - 0.03 X10*3/uL [facility] Lymphocytes Absolute Auto 1.7 1.2 - 4.9 X10*3/uL [facility] Monocytes Absolute Auto 0.7 0.1 - 1.2 X10*3/uL [facility] Eosinophils Absolute Auto 0.4 0.0 - 0.4 X10*3/uL [facility] Basophils Absolute Auto 0.1 0.0 - 0.2 X10*3/uL [facility] NRBC Abs Auto 0.000 0.0 - 0.012 X10*3/uL [facility] 07/25/2025 3:20 PM EST 07/25/2025 3:24 PM EST us Generic External Data Provider LAB BLOOD ORDERAB LES Final Result [facility] [address] [place] [phone] * Creatine Kinase, Total (07/25/2025 3:20 PM EST) Creatine Kinase Total 102 38 - 174 U/L [facility] 07/25/2025 3:20 PM EST 07/25/2025 3:24 PM EST us Generic External Data Provider LAB BLOOD ORDERAB LES Final Result [facility] [address] [place] [phone] * (ABNORMAL) Comprehensive Metabolic Panel (07/25/2025 3:20 PM EST) Only the most recent of2 resultswithin the time period is included. Sodium 132(L) 135 - 145 mmol/L [facility] Potassium 5.0 3.3 - 5.1 mmol/L [facility] Chloride 100 96 - 108 mmol/L [facility] Carbon Dioxide 25 22 - 29 mmol/L [facility] Anion Gap 12 12 - 20 [facility] Urea Nitrogen (BUN) 35(H) 9 - 16 mg/dL [facility] Creatinine, Serum 1.84(H) 0.5 - 1.4 mg/dL [facility] Creatinine Clr Calc Pharmacy 39.7 [facility] Comment:eGFR (calculated fro m the MDRD study equation) and eCrCl(calculated from the Cockcroft-Gault equation) are based ondifferent parameters and may not yield comparable results.If eCrCl result is absurd, please check patient'sheight/weight. Estimated Glomerular Filt Rate 37 [facility] Comment:Chronic Kidney Disea se: Estimated GFR < 60 mL/min/1.47j0Fahnht Kidney Disease: Estimated GFR < 15 mL/min/1.73m2 Glucose 395(HH) 60 - 115 mg/dL [facility] Comment:Critical value for t est(s):GLUR Results called to and readback by: SUSHMA Person calling: JOSE EDUARDO Date:07/25/25Time:15:44 Calcium 9.4 8.4 - 10.2 mg/dL [facility] Bilirubin, Total 0.4 0.0 - 1.0 mg/dL [facility] Aspartate Amino Transferase 27 5 - 37 U/L [facility] Alanine Aminotransferase 28 0 - 40 U/L [facility] Total Protein 8.1(H) 6.5 - 8.0 g/dL [facility] Albumin Level 4.3 3.5 - 5.0 g/dL [facility] Alkaline Phosphatase 111 39 - 117 U/L [facility] 07/25/2025 3:20 PM EST 07/25/2025 3:24 PM EST us Generic External Data Provider LAB BLOOD ORDERAB LES Final Result Performing Organization Address City/[facility]/ZIP Co de Phone Number [facility] [address] [place] [phone] * (ABNORMAL) POCT Glucose (07/25/2025 1:35 PM EST) [facility] Glucose Blood, POC 293(A) 60 - 200 mg/dL QC Media Lot # [id number] Lot# Expiration Date Blood Capillary blood specimen / Unknown 07/25/2025 1:35 PM EST Shanda Joseph ANP POINT OF CARE TEST ENTER/EDIT OR DERABLES Final Result * TSH W/Reflex to FT4 (06/17/2025 1:34 PM EDT) [facility] TSH reflex Free T4 3.26 0.32 - 4.0 uIU/mL [facility] Blood Venous blood specimen / Unknown 06/17/2025 1:34 PM EDT 06/17/2025 4:15 PM EDT Shanda Joseph ANP LAB BLOOD ORDERABLES Final Resul t Performing Organization Address City/[facility]/ZIP Co de Phone Number [facility] [address] [place] [phone] [phone] * (ABNORMAL) Albumin, Random Urine W/Creatinine (06/17/2025 1:34 PM EDT) Pathologist [facility] Creatinine, Urine 49.34 mg/dL [facility] Microalbumin Urine 281.0 mg/L [facility] Microalbum Creatinine Ratio Ur 569.5(H) <30 ug/mg cr [facility] Comment:Albumin/Creatinine R atio Reference Ranges: Normal: < 30 ug/mg creatinine Microalbuminuria: 30 - 300 ug/mg creatinineClinical Albuminuria: > 300 ug/mg creatinine Urine (Urine, Random) 06/17/2025 1:34 PM EDT 06/17/2025 4:05 PM EDT Shanda Joseph [facility] URINE ORDERABLES Final Resul t Performing Organization Address [facility] de Phone Number [facility] [address] [place] [phone] * Hepatitis B surface antigen, EIA (06/17/2025 1:34 PM EDT) Hepatitis B Surface Ag Negative Negative [facility] Blood Venous blood specimen / Unknown 06/17/2025 1:34 PM EDT 06/17/2025 4:15 PM EDT Shanda Joseph [facility] LAB BLOOD ORDERABLES Final Resul t Performing Organization Address [facility] de Phone Number [facility] [address] [place] [phone] * Hepatitis B Core Antibody, Total (06/17/2025 1:34 PM EDT) Hepatitis B Core Antibody Nonreactive Nonreactive [facility] Blood Venous blood specimen / Unknown 06/17/2025 1:34 PM EDT 06/17/2025 4:15 PM EDT Shanda Joseph [facility] LAB BLOOD ORDERABLES Final Resul t Performing Organization Address [facility] de Phone Number [facility] [address] [place] [phone] * Hepatitis B Surface Antibody, Qualitative (06/17/2025 1:34 PM EDT) ~Hepatitis B Surface Antibody NONREACTIVE Nonreactive [facility] Comment:Nonreactive: < 8.00 mIU/mL Blood Venous blood specimen / Unknown 06/17/2025 1:34 PM EDT 06/17/2025 4:15 PM EDT Shanda Joseph ANP LAB BLOOD ORDERABLES Final Resul t Performing Organization Address [facility] Co de Phone Number [facility] [address] [place] [phone] * (ABNORMAL) Hemoglobin A1c (06/17/2025 1:34 PM EDT) Pathologist [facility] Hemoglobin A1c 6.2(H) <6.0 % [facility] Comment:Hemoglobin A1C Refer ence Range Adults: 4.8 - 6.0 % Non diabetic: < 6.0 % Goal: < 7.0 %Additional Action Suggested: > 8.0 %Note: Hemoglobin A1c results are invalid for patients with abnormal amounts of HbF. Blood transfusions may impact the HbA1c concentration in the patient sample. Estimated Average Glucose 131 mg/dL [facility] Comment:eAG = Estimated ave rage glucose which is %A1C expressed asaverage glucose, using the formula of the V4O-XigomreTvxyxrs Glucose study (ADAG), Diabetes Care, Vol.31,#8,Apr. 2007 Blood Venous blood specimen / Unknown 06/17/2025 1:34 PM EDT 06/17/2025 4:15 PM EDT Shanda Joseph ANP LAB BLOOD ORDERABLES Final Resul t Performing Organization Address [facility]/ZIP Co de Phone Number [facility] [address] [place] [phone] * Vitamin B12 (06/17/2025 1:34 PM EDT) Pathologist [facility] Vitamin B12 708 200 - 900 pg/mL [facility] Comment:NORMAL 200-900 PG/ML INDETERMINATE 160-199 PG/ML DEFICIENT < 160 PG/ML Blood Venous blood specimen / Unknown 06/17/2025 1:34 PM EDT 06/17/2025 4:15 PM EDT Shanda Joseph [facility] LAB BLOOD ORDERABLES Final Resul t Performing Organization Address [facility] Co de Phone Number [facility] [address] [place] [phone] * (ABNORMAL) Lipid Panel, Standard (06/17/2025 1:34 PM EDT) Triglycerides 176(H) <150 mg/dL [facility] Comment:Desirable Triglyceri de: less than 150 mg/dLBorderline High Triglyceride 150-199 mg/dLHigh Triglyceride: 200-499 mg/dLVery High Triglyceride: greater than or equal to 5OO mg/dL Cholesterol 127 <200 mg/dL [facility] Comment:Desirable Cholestero l: less than 200 mg/dLBorderline High Cholesterol: 200-239 mg/dLHigh Cholesterol: greater than 239 mg/dL LDL Cholesterol Calculated 60 <100 mg/dL [facility] Comment:Desirable LDL: less than 100 mg/dLNear Optimal/Above Optimal LDL: 110- 129 mg/dLBorderline High LDL: 130-159 mg/dLHigh LDL: 160-189 mg/dLVery High LDL: greater than or equal to 190 mg/dL HDL Cholesterol 32(L) >40 mg/dL [facility] Comment:Desirable HDL: great er than 40 mg/dL Note: This HDL assay may give artificially low results in patients with liver disease. Blood Venous blood specimen / Unknown 06/17/2025 1:34 PM EDT 06/17/2025 4:15 PM EDT Shanda Joseph ANP LAB BLOOD ORDERABLES Final Resul t Performing Organization Address [facility] Co de Phone Number [facility] [address] [place] [phone] * OCT, Retina - OU - [...] also monitor here in 3 months. Oneyda Menjivaradelfo OD OPHTH TOMOGRAPHY Final Result * HEPATITIS C AB W/REFL TO HCV RNA, QN, PCR (02/08/2022 11:53 AM EDT) HEPATITIS C ANTIBODY NON-REACT ALEJANDRO NON-REACT ALEJANDRO [facility] INDEX 0.02 <1.00 [facility] Comment: HCV antibody was non-reactive. There is no laboratory evidence of HCV infection. In most cases, no further action is required. However, if recent HCV exposure is suspected, a test for HCV RNA (test code 63305) is suggested. For additional information please refer to http://education.Guía Local/faq/YLT30k9 (This link is being provided for informational/ educational purposes only.) 02/08/2022 11:5 3 AM EDT us Shanda Joseph ANP HISTORICAL/NON ORDERABLE LABS Fi nal Result [facility] [address] * HIV 1/2 ANTIGEN/ANTIBODY,FOURTH GENERATION W/RFL (02/08/2022 11:53 AM EDT) HIV-1/2 ANTIGEN AND ANTIBODIES, 4TH GENERATION W/ REFLEX NON-REACT ALEJANDRO NON-REACT ALEJANDRO [facility] Comment: HIV-1 antigen and [...] purpose. For additional information please refer to http://education.JumpStart.Curse/faq/FLR249 (This link is being provided for informational/ educational purposes only.) The performance of this assay has not been clinically validated in patients less than 2 years old. 02/08/2022 11:5 3 AM EDT [facility] BLOOD ORDERABLES Final Resul t [facility] [address] from Last 3 Months or Most [...] 08/25/2025 Patient has chronic kidney disease 08/25/2025 Insurance [facility] C3 Care Teams Tree Surgeon Helper Relationship Specialty Start Date End Date Shanda Joseph ANP [address] [place] [address] PCP - General Family Medicine 02/22/22 Kim Mcrae, CarolinaD [address] [place] [address] Pharmacist Pharmacy 07/26/25
--- OUTSIDE RECORDS SUMMARY | 2025-08-25 17:18 | XMS_ITS | Encounter Summary ---
Author Organization [employer] Address [address] [place] [address] Care Team Providers Care Special Effects Designer Name Role Phone Shanda Joseph MONSTER Primary Care Provider [phone] Kim Mcrae PharmD Unavailable [phone] Encounter Details Date Type Department Care Team (Latest Contact Info) Description 08/25/2025 Travel Social History Tobacco Use Types Packs/Day [...] with others, in a hotel, in a long term, living outside on the street, on a [...] Description 09/12/2025 11:30 AM EST Office Visit [facility] [address] [place] [address] Garfield, Oneyda, OD [address] [place] [address] 09/12/2025 2:00 PM EST Immunization [facility] [address] [place] [address] 09/26/2025 1:30 PM EST Medication Management [facility] [address] [place] [address] Maicols-Kim Sheppard, PharmD [address] [place] [address] documented as of this encounter Goals Goal Patient Goal Type Associated Problems Recent Progress Patient-Stated? Author Help patients manage their type 2 diabetes Care Plan Help patients manage their type 2 diabetes No Maicols-Shepaprd , Kim, PharmD Weekly blood pressure task [...] has chronic kidney disease No Piers-Sheppard , Ikm, PharmD Weekly blood pressure task Care Plan [...] Care Plan Weekly blood pressure task No CruzFadia holcombfer, PharmD Weekly blood pressure task Care Plan Weekly blood pressure task No CruzLisaKimberly, PharmD Patient has diabetic eye disease Care Plan Patient has diabetic eye disease No CruzLisaKimberly, PharmD Patient has diabetic eye disease Care Plan Patient has diabetic eye disease No CruzLisaKimberly, PharmD Patient has diabetic eye disease Care Plan Patient has diabetic eye disease No CruziLsaKimberly, PharmD Patient has chronic kidney disease Care Plan Patient has chronic kidney disease No CruzLisaKimberly, PharmD Patient has chronic kidney disease Care Plan Patient has chronic kidney disease No CruzLisaKimberly, PharmD Patient has chronic kidney disease Care [...] chronic kidney disease No Kim Mcrae PharmD Patient has chronic kidney disease Care Plan Patient has chronic kidney disease No Kim Mcrae PharmD Patient has [...] documented as of this encounter Care Teams Special Effects Designer Relationship Specialty Start Date End Date Shanda Joseph ANP [address] [place] [address] PCP - General Family Medicine 02/22/22 Kim Mcrae PharmD [address] [place] [address] Pharmacist Pharmacy 07/26/25 documented as of this encounter
--- OUTSIDE RECORDS SUMMARY | 2025-08-25 17:18 | XMS_ITS | Encounter Summary ---
Author Organization [employer] Address [address] [facility] 7[address] [place] [address] Care Team Providers Care Plastic Finisher Name Role Phone Shanda Joseph Primary Care Provider [phone] Kim Mcrae PharmD Unavailable [phone] Encounter Details Date Type Department Care Team (Late st Contact Info) Description 05/20/2025 Telephone [facility] [address] [place], [place] [phone] Shanda Joseph ANP [address] [place] [address] Social History Tobacco Use Types Packs/Day Years [...] Description 09/12/2025 11:30 AM EST Office Visit [facility] [address] [place] [address] Oneyda Merrill, OD [address] [place] [address] 09/12/2025 2:00 PM EST Immunization [facility] [address] [place] [address] 09/26/2025 1:30 PM EST Medication Management [facility] [address] [place] [address] Kim Mcrae PharmD [address] [place] [address] documented as of this encounter Visit Diagnoses Not on filedocumented in this encounter Care Teams Plastic Finisher Relationship Specialty Start Date End Date Shanda Joseph ANP [address] [place] [address] PCP - General Family Medicine 02/22/22 Kim Mcrae, PharmD [address] [place] [address] Pharmacist Pharmacy 07/26/25 documented as of this encounter
--- OUTSIDE RECORDS SUMMARY | 2025-08-25 17:19 | XMS_ITS | Encounter Summary ---
Author Organization [employer] Address [address] [place] [address] Care Team Providers Care Cyber Security Engineer Name Role Phone Shanda Joseph MONSTER Primary Care Provider [phone] Kim Mcrae PharmD Unavailable [phone] Encounter Details Date Type Department Care Team (Latest Contact Info) Description 08/21/2025 Travel Social History Tobacco Use Types Packs/Day [...] with others, in a hotel, in a senior care, living outside on the street, on a [...] 09/12/2025 11:30 AM EST Office Visit [facility] [address] [place] [address] Garfield, Oneyda, OD [address] [place] [address] 09/12/2025 2:00 PM EST Immunization [facility] [address] [place] [address] 09/26/2025 1:30 PM EST Medication Management [facility] [address] [place] [address] Maicols-Kim Sheppard, PharmD [address] [place] [address] documented as of this encounter Goals Goal [...] Patient has diabetic eye disease No Shanda Jospeh ANP Patient has chronic kidney disease Care [...] Plan Patient has diabetic eye disease No sIha Fallon RN Patient has diabetic eye disease [...] chronic kidney disease No Isha Fallon RN documented as of this encounter Visit Diagnoses [...] 08/12/2025 Patient has chronic kidney disease 08/12/2025 Assessment Noted Time PHQ-9 Depression Total Score: 3 05/28/20 2:58 PM EDT documented as of this encounter Care Teams Cyber Security Engineer Relationship Specialty Start Date End Date Shanda Joseph ANP [address] [place] [address] PCP - General Family Medicine 02/22/22 Kim Mcrae PharmD [address] [place] [address] Pharmacist Pharmacy 07/26/25 documented as of this encounter
--- OUTSIDE RECORDS SUMMARY | 2025-08-25 17:19 | XMS_ITS | Encounter Summary ---
Author Organization [employer] Address [address] [facility] 7[address] [place] [address] Care Team Providers Care Music Composition Teacher Name Role Phone Shanda Joseph Primary Care Provider [phone] Kim Mcrae PharmD Unavailable [phone] Encounter Details Date Type Department Care Team (Late st Contact Info) Description 08/22/2025 Refill [facility] [address] [place], [place] [phone] Shanda Joseph ANP [address] [place] [address] Social History Tobacco Use Types Packs/Day Years [...] with others, in a hotel, in a long-term, living outside on the street, on a [...] Description 09/12/2025 11:30 AM EST Office Visit [facility] [address] [place] [address] Garfield, Oneyda, OD [address] [place] [address] 09/12/2025 2:00 PM EST Immunization [facility] [address] [place] [address] 09/26/2025 1:30 PM EST Medication Management [facility] [address] [place] [phone] Kim Mcrae, PharmD [address] [place] [address] documented as of this encounter Goals Goal Patient Goal Type Associated Problems Recent Progress Patient-Stated? Author Help patients manage their type 2 diabetes Care Plan Help patients manage their type 2 diabetes No Kim Mcrae, Barry Weekly blood pressure task Care Plan [...] blood pressure task No Kimberly Cruz, PharmD Patient has diabetic eye disease Care Plan Patient has diabetic eye disease No CruzFadia holcombfer, PharmD Patient has diabetic eye disease Care Plan Patient has diabetic eye disease No Fadia Cruzfer, PharmD Patient has diabetic eye disease Care Plan Patient has diabetic eye disease No Cruz, Kimberly, PharmD Patient has chronic kidney disease Care Plan Patient has chronic kidney disease No Cruz, Kimberly, PharmD Patient has chronic kidney disease Care Plan Patient has chronic kidney disease No Cruz, Kimberly, PharmD Patient has chronic kidney disease Care Plan Patient has chronic kidney disease No Kimberly Cruz, PharmD documented as of this encounter Visit [...] 08/22/2025 Patient has chronic kidney disease 08/22/2025 Assessment Noted Time PHQ-9 Depression Total Score: 3 05/28/20 25 2:58 PM EDT documented as of this encounter Care Teams Music Composition Teacher Relationship Specialty Start Date End Date Shanda Joseph ANP [address] [place] [address] PCP - General Family Medicine 02/22/22 Kim Mcrae PharmD [address] [place] [address] Pharmacist Pharmacy 07/26/25 documented as of this encounter
== END 2025-08-25 13:52 | disposition home or self-care (01) ==
LOC: HO.HHCL 13:51
PROVIDERS: PCP Nurse Practitioner Primary Care; Visit Provider Nurse Practitioner Primary Care
DX: E11.65 Type 2 diabetes mellitus with hyperglycemia (principal); Z79.4 Long term (current) use of insulin
CPT/HCPCS: 36415; 80048